=== PATIENT | male | born 1955 | race Caucasian/White ===

== ENCOUNTER 2018-03-12 05:27 | Day surgery (SDC) | payer OTHER ==
[2018-03-04 07:16] VITALS: Ht 182.9 cm; Wt 136.4 kg
[~2018-03-12] VITALS: Ht 182.9 cm; Wt 136.4 kg
[~2018-03-12 05:27] MED LIST: ATOR-24 PO; EMPA1TAB PO; GLC/500 PO; IBUP-1105 PO; LISI-787 PO; LORA1CHW PO
[2018-03-12 05:51] VITALS: BP 191/99; PULSE 71; TEMP 36.7; O2SAT 97
[2018-03-12] MEDS ORDERED: CEFAZOLIN 3000MG IV PUSH 22.5 ML IV SCH (06:00)
[2018-03-12] MEDS ORDERED: LACTATED RINGER'S 1000ML 500 ML IV SCH (06:00)
[2018-03-12] MEDS ORDERED: LIDOCAINE HCL 2% 2 ML VIAL (20MG/ML) ONE (06:26)
[2018-03-12] MEDS ORDERED: PROPOFOL IV EMULSION 10 MG/ML 20 ML VIAL ONE (06:26)
[2018-03-12] MEDS ORDERED: FENTANYL CITRATE INJ 50 MCG/1 ML 2 ML VIAL ONE (06:26)
[2018-03-12] MEDS ORDERED: MIDAZOLAM HCL 1 MG/ML 2ML VIAL ONE ×2 (06:26→07:06)
--- NOTE | 2018-03-12 06:40 | History & Physical Bridge Note ---
H&P Re-Evaluation Bridge Note: I have examined the patient, reviewed the History & Physical and in the interval since the performance of the History & Physical I have noted the following changes of clinical significance: No changes noted
[2018-03-12] MEDS ORDERED: LIDOCAINE HCL 1% 20 ML VIAL ONE ×2 (06:53→07:19)
[2018-03-12] MEDS ORDERED: BUPIVACAINE 0.5 % 5 MG/1 ML PF 10ML VIAL ONE ×2 (06:53→07:23)
[2018-03-12] MEDS ORDERED: EpHEDrine SULFATE INJ 50 MG/ML AMP IV PRN (07:30)
[2018-03-12] MEDS ORDERED: ATROPINE SULFATE 0.1 MG/ML 5ML SYR IV PRN (07:30)
[2018-03-12] MEDS ORDERED: ONDANSETRON INJ 2 MG/ML 2 ML VIAL IV PRN ×2 (07:30→08:00)
[2018-03-12] MEDS ORDERED: BACITRACIN OINT 15 GM TUBE ONE (07:30)
[2018-03-12] MEDS ORDERED: FENTANYL CITRATE INJ 50 MCG/1 ML 2 ML VIAL IV PRN (07:30)
--- NOTE | 2018-03-12 07:37 | [facility] Post Operative Brief Note ---
Immediate Operative Summary Operative Date Mar 12, 2018. Pre-Operative Diagnosis Cyst, Left Thigh Post-Operative Diagnosis Same as preoperative. Procedure(s) Performed Resection Cyst on Left Thigh, Under Sedation and Local Surgeon Dr. Alphonso Yoder Slip Cover Estimator Surgeon(s) None Estimated Blood Loss 10ml Findings Consistent with Post-Op Diagnosis Specimens A.) Cyst, Left Thigh Drains None Anesthesia Type Local Complication(s) none Disposition Accompanied Pt To Recover: yes Disposition: Recovery Room / PACU
--- NOTE | 2018-03-12 07:47 | History & Physical Bridge Note ---
H&P Re-Evaluation Bridge Note: I have examined the patient, reviewed the History & Physical and in the interval since the performance of the History & Physical I have noted the following changes of clinical significance: pt has umbilical hernia, pt has periumbilical pain , pt requests to do umbilical hernia repair possible mesh, and laparoscopic cholecystectomy, possible open or cholangiogram,
[2018-03-12] MEDS ORDERED: SODIUM CHLORIDE 0.9% 1000ML 1,000 ML IV SCH (07:54)
[2018-03-12] MEDS ORDERED: OXYC-57 PO (07:56)
--- NOTE | 2018-03-12 07:59 | Discharge Instructions ---
Discharge Instructions Date of Service Mar 12, 2018. Visit Reason for Visit: Sebaceous Cyst Discharge Discharge Diagnosis / Problem: S/p resection a cyst on left thigh Discharge Goals Goal(s): Decrease discomfort, Improve function Activity Recommendations Activity Limitations: per Instructions/Follow-up section Lifting Limitations: none Exercise/Sports Limitations: rest today May Resume Sexual Activity: when tolerated Shower/Bathe: may shower/bathe in 3 days Driving or Machine Use: resume 3 days after discharge Anesthesia . Post Anesthesia Instructions: If you have had General Anesthesia or IV Sedation: * Do not drive today. * Resume driving when surgeon permits. * Do not make important decisions or sign legal documents today. * Call surgeon for: 1. Temperature elevations greater than 101 degrees F. 2. Uncontrollable pain. 3. Excessive bleeding. 4. Persistent nausea and vomiting. 5. Medication intolerance (nausea, vomiting or rash). * For nausea and vomiting use only clear liquids such as: tea, soda, bouillon until nausea subsides, then gradually increase diet as tolerated. * If you have any concerns or questions, call your surgeon's office. If physician is unavailable and it is an emergency, call 911 or go to the nearest emergency room. . Instructions / Follow-Up Instructions / Follow-Up keep the dressing on for 4 days, he can take a shower on 03/16/2018, no driving while taking pain medicine, follow up DR. chin on 03/29/2018, Diet Recommendations Recommended Home Diet: resume previous diet Procedures Procedures Performed: Resection Cyst on Left Thigh, Under Sedation and Local Pending Studies Studies pending at discharge: no Medical Emergencies . Who to Call and When: Medical Emergencies: If at any time you feel your situation is an emergency, please call 911 immediately. . Non-Emergent Contact Non-Emergency issues call your: Surgeon Call Non-Emergent contact if: you have a fever, temperature is above 100.5, your pain is not controlled, your pain is worsening, wound has increased drainage, wound has increased redness . . "Provider Documentation" section prepared by Alphonso Chin. . [place] Drug Monitoring Program Search Results: no issues identified
[2018-03-12] MEDS ORDERED: MoRPHine SULFATE 4 MG/ML 1 ML CARP\\VIAL IV PRN (08:00)
[2018-03-12] MEDS ORDERED: OXYCODONE/ACETAMINOPHEN 5-325 TAB PO PRN (08:00)
--- NOTE | 2018-03-12 08:02 | Anesthesiology Progress Note ---
Anesthesia Post Op Note Date & Time Mar 12, 2018 at 08:02 Vital Signs Pain Intensity: 0 Vital Signs Past 12 Hours Date Time Temp Pulse Resp B/P (MAP) Pulse Ox O2 Delivery O2 Flow Rate FiO2 03/12/18 07:50 72 18 143/90 95 Room Air 03/12/18 07:40 36.5 72 18 148/87 98 Room Air 03/12/18 05:51 36.7 71 18 191/99 (129) 97 Room Air Notes Mental Status: alert / awake / arousable, participated in evaluation Pt Amnestic to Procedure: Yes Nausea / Vomiting: adequately controlled Pain: adequately controlled Airway Patency, RR, SpO2: stable & adequate BP & HR: stable & adequate Hydration State: stable & adequate Anesthetic Complications: no major complications apparent
[2018-03-12 08:10] VITALS: BP 165/82; PULSE 67; TEMP 36.6; O2SAT 97
--- NOTE | 2018-03-12 08:30 | OPERATIVE REPORT ---
DATE OF OPERATION: 03/12/2018 PREOPERATIVE DIAGNOSIS: A cyst on the left thigh. POSTOPERATIVE DIAGNOSIS: A cyst on the left thigh. PROCEDURE: Resection of cyst from the left thigh. SURGEON: Alphonso Yoder MD ANESTHESIA: Conscious sedation plus local. ESTIMATED BLOOD LOSS: About 10 mL FINDINGS: Cyst. COMPLICATIONS: None. INDICATIONS FOR THE PROCEDURE: This is a 62 years old gentleman who presented with infected cyst on the left thigh. After patient treated with I&D and abscess with p.o. antibiotic, all the infection is gone. Patient required resection of the cyst on the left side. I did talk to the patient about the benefit and risk, alternate procedure. I indicated the risks may include but not limited such as bleeding, infection, recurrence. Patient understands. He signed informed consent. He agreed to proceed. I answered all questions. DETAILS OF PROCEDURE: We brought the patient to the OR, put the patient on the lithotomy position. Patient received SCD on bilateral legs to prevent DVT. Also, patient received 3 grams of Ancef IV for prophylactic antibiotic. Patient received conscious sedation by the anesthesiology. Then the patient's left thigh was prepped and draped in routine sterile fashion. After a timeout, I injected with local anesthesia by using 1% lidocaine mixed with 0.5% Marcaine around the cyst. The cyst's size was about 2 x 2 cm. Then using 15 blade completely removed the cyst deep through subcutaneous layer. Hemostasis was obtained; using 2-0 Vicryl to close subcutaneous layer, interrupted and closed skin by using 3-0 nylon interrupted. We put the dressing on. The patient tolerated the procedure well. All the instrument, needle and sponge count were correct x2 at the end of case. The patient transferred to recovery room in stable condition after procedure. I did talk to the patient's family member about the OR finding and procedure we did, they understand. Also, gave them the postop care instructions and they understand. I attest to the content of the Intraoperative Record and any orders documented therein. Any exceptions are noted below. ROBBIN
[2018-03-12 08:38] VITALS: BP 177/84; PULSE 62; O2SAT 98
[2018-03-12 09:00] VITALS: BP 167/79; PULSE 69; TEMP 36.6; O2SAT 99
[2018-03-13] MEDS ORDERED: CEFAZOLIN SOD 2000MG/15 ML IV PUSH IV ONE (06:00)
== END 2018-03-12 09:11 | disposition home or self-care (01) ==
LOC: C.ACU 05:27
PROVIDERS: ATTEND Surgery
DX: L72.3 Sebaceous cyst (principal); I10 Essential (primary) hypertension; E11.9 Type 2 diabetes mellitus without complications; E66.01 Morbid (severe) obesity due to excess calories; E78.5 Hyperlipidemia, unspecified; F17.220 Nicotine dependence, chewing tobacco, uncomplicated; Z79.899 Other long term (current) drug therapy; Z79.82 Long term (current) use of aspirin; Z79.84 Long term (current) use of oral hypoglycemic drugs

== ENCOUNTER 2022-03-25 07:48 | Inpatient (IN) ==
[2022-03-25 08:49] LABS: Basophils # (auto) 0.03 K/uL (0-0.2); Basophils % (auto) 0.2 %; Eosinophils % (auto) 0.6 %; Hematocrit (blood only) 36.3 % (40.1-51.0); Hemoglobin 12.7 g/dl (14.0-18.0); Immature Granulocytes # (auto) 0.13 K/uL (0.00-0.02); Immature Granulocytes % (auto) 0.8 %; Lymphocytes # (auto) 0.83 K/uL (1.2-3.4); Lymphocytes % (auto) 4.9 %; Mean Corpuscular Hemoglobin 31.4 pg (25.0-34.0); Mean Corpuscular Volume 89.9 fL (80.0-100.0); Mean Platelet Volume 9.9 fL (9.4-12.4); Monocytes # (auto) 1.28 K/uL (0.24-0.82); Monocytes % (auto) 7.5 %; Neutrophils # (auto) 14.71 K/uL (1.4-6.5); Platelet Count 239 K/uL (130-400); RDW Coefficient of Variation 11.8 % (11.5-14.5); RDW Standard Deviation 38.6 fL (36.4-46.3); Red Blood Count 4.04 M/uL (4.63-6.08); White Blood Count 17.08 K/ul (4.8-10.8)
[2022-03-25 09:18] LABS: BUN Creatinine Ratio 21.2 (10-20); Creatinine Clr Calc Pharmacy 120.6 ml/min; Est GFR (African American) 106.7 ml/min; Est GFR (Non-African American) 92.1 ml/min; Potassium 3.7 mmol/L (3.5-5.1)
[2022-03-25] MEDS ORDERED: VANCOMYCIN HCL 2,750 MG in SODIUM CHLORIDE 0.9% 500 ML IV ONE (09:20)
[2022-03-25] MEDS: SODIUM CHLORIDE 0.9% 500 ML IV SCH ×2 (09:20→13:31)
[2022-03-25] MEDS ORDERED: VANCOMYCIN CONSULT ACTIVE PRN ×2 (09:20→13:21)
[2022-03-25] MEDS ORDERED: PIPERACILLIN/TAZOBACTAM 4.5 GM/120 ML BAG IV ONE (09:20)
--- NOTE | 2022-03-25 09:22 | Ultrasound Report ---
ULTRASOUND TESTES AND SCROTUM CLINICAL HISTORY: Scrotal cellulitis. COMPARISON STUDY: No priors. TECHNIQUE: Real-time, grayscale, and color Doppler sonography of the testes and scrotum is performed. Images are reviewed in the transverse and longitudinal planes. FINDINGS: The testes are normal in size and homogeneous in echotexture. The right testis measures 3.8 x 2.1 x 2 .9 cm and the left testis measures 3.9 x 2.3 by cm. A 3 mm hypoechoic nodule is noted in the right te stis. No flow was shown within this nodule. Question mild hyperemia of the testes. Normal Doppler wav eforms are identified in both testes. The right epididymal head is heterogeneous and hyperemic. A 12 mm epididymal head cyst is noted on th e right. Left epididymal head cysts measure up to 5 mm. There is diffuse scrotal wall thickening. No varicocele or hydrocele is seen. IMPRESSION: 1. There is diffuse scrotal wall thickening consistent with the reported history of cellulitis. Clini markell correlation will be required. 2. A 3 mm indeterminant hypoechoic nodule is identified in the right testis. A small testicular neopl asm is not excluded. Nonemergent follow-up with urology is recommended, as is a precautionary 3-4 mon th follow-up scrotal ultrasound. 3. Question mild hyperemia of the right epididymis and both testes. Correlate clinically for evidence of epididymoorchitis. ACT 112: Negative or not required by law. Electronically signed by: Atilio Moreau M.D. 03/25/2022 9:20 AM
--- NOTE | 2022-03-25 10:29 | History & Physical Report ---
Date of Service March 25, 2022 Assessment & Plan (1) Cellulitis, scrotum: Plan: Possible epididymoorchitis Meets sepsis criteria Patient is a 66-year-old male with PMH HTN, dyslipidemia, DM II, h/o perianal abscess presented to ER with complaint of scrotal erythema, edema and tenderness x 2 days. Patient noticed non-tender lump to distal left scrotum on 03/19/22. PCP f/u on 03/22/22 and was prescribed Bactrim. Took for 2 days. Denies fever/chills, vomiting, known trauma, penile discharge, urinary symptoms. +mild nausea. In ER afebrile, initial P: 115 down to 91, R: 18, BP 162/132 down to 161/80, 97% on room air. WBC: 17, lactate: WNL. Ultrasound scrotum: There is diffuse scrotal wall thickening consistent with the reported history of cellulitis. Question mild hyperemia of the right epididymis and both testes. Correlate clinically for evidence of epididymoorchitis. In ER given Zosyn, vancomycin, 500 mL NSS Blood cultures obtained after initial antibiotics given Continue Zosyn, vancomycin IVF CBC, CMP in am Will start Nystatin powder for clinical fungal infection intertriginous areas of groin If no improvement consider urology consult (2) Abnormal ultrasound: Plan: Scrotum US: A 3 mm indeterminant hypoechoic nodule is identified in the right testis. A small testicular neoplasm is not excluded. Nonemergent follow-up with urology is recommended, as is a precautionary 3-4 month follow-up scrotal ultrasound. Will need outpatient urology follow up and repeat scrotal US to be scheduled (3) Hyponatremia: Plan: Na 133 corrected for glucose of 273 Monitor (4) Hyperglycemia: (5) Diabetes mellitus, type II: Plan: Glucose 273 A1c: 7.9 on 03/01/2022 Hold metformin, Trulicity Basal bolus insulin per protocol (6) HTN (hypertension): Plan: BP initially elevated in ER. Patient did not have a.m. meds Continue lisinopril Hold HCTZ and reevaluate tomorrow (7) Dyslipidemia: Plan: Patient denied medical dyslipidemia treatment per outpatient records DVT Prophylaxis -Lovenox SQ Full Code as per discussion with pt Follows with Dr Chowdary for routine care Pt was seen and care coordinated with Dr Bruce. See addendum History of Present Illness Chief Complaint: Scrotal erythema Primary Care Provider: Félix Chowdary MD Patient is a 66-year-old male with PMH HTN, dyslipidemia, DM II, h/o perianal abscess presented to ER with complaint of scrotal erythema. Patient reports he noticed 03/19/22 had lump bottom of left side scrotum that was not tender. He followed up with PCP on 03/22/22 and was prescribed Bactrim. Patient took B actrim for 2 days. He felt increased edema and erythema and area very tender. He stopped taking Bactrim. Denies penile discharge or bleeding, trauma. Cuts a lot of grass on riding reservation agent. Patient reports had a little bit of nausea, denies vomiting. Denies fever/chills, diaphoresis, V/D/C, ALMARAZ, dizziness, syncope, vision changes, neck pain, CP, SOB, orthopnea, palpitations, cough, sore throat, choking, otalgia, rhinorrhea, abdominal pain, paresthesias, weakness, extremity weakness, extremity edema, rashes, urinary symptoms. Allergies Allergy/AdvReac Type Severity Reaction Status Date / Time No Known Allergies Allergy Unverified 03/12/18 05:46 Home Medications Medication Instructions Recorded Confirmed Type aspirin 81 mg tablet 81 mg PO DAILY 03/25/22 03/25/22 History chlorpheniramine maleate 4 mg 4 mg PO DAILY 03/25/22 03/25/22 History tablet (ChlorTabs) dulaglutide 3 mg/0.5 mL 3 mg subcut WK 03/25/22 03/25/22 History subcutaneous pen injector (Trulicity) fluticasone propionate 50 2 spray intranasal DAILY PRN 03/25/22 03/25/22 History mcg/actuation nasal Congestion spray,suspension lisinopril 20 1 tab PO DAILY 03/25/22 03/25/22 History mg-hydrochlorothiazide 12.5 mg tablet metformin 1,000 mg tablet 1,000 mg PO BID 03/25/22 03/25/22 History sodium chloride 0.65 % nasal spray 2 spray intranasal BID PRN 03/25/22 03/25/22 History Congestion sulfamethoxazole 800 1 tab PO BID 03/25/22 03/25/22 History mg-trimethoprim 160 mg tablet Past Med/Surg History Medical History (Updated 03/25/22 @ 10:59 by Tabitha Matthews PA-C) Diabetes mellitus, type II Dyslipidemia HTN (hypertension) Surgical History (Updated 03/25/22 @ 10:43 by Tabitha Matthews PA-C) History of incision and drainage Family History (Updated 03/25/22 @ 10:38 by Tabitha Matthews PA-C) Other Breast cancer Coronary heart disease Diabetes Hypertension Social History (Updated 03/25/22 @ 10:43 by Tabitha Matthesw PA-C) Smoking Status: Never smoker Tobacco Type: Smokeless Tobacco (Dip or Chew) Hx Alcohol Use: No Hx Substance Use: No Feels Safe at Home: Yes Review of Systems Review of Systems: All systems reviewed & are unremarkable except as noted in HPI & below Physical Exam Physical Exam: General: no acute distress, obese Head: normocephalic, atraumatic Eyes: conjunctiva non-injected, anicteric ENT: normal inspection external ears, nose, mucous membranes moist Neck: supple, trachea midline Lungs: clear, no respiratory distress, no wheezing/rhonchi/rales CV: RRR, no murmur, no pretibial edema Abd: protuberant, normal BS, soft, non-tender Gential: exam per Dr Bruce Ext: no cyanosis, no calf tenderness Neuro: A&O x 3, no focal deficits noted, normal affect Skin: warm, dry Results & Data Results & Data ([facility]) Vital Signs (Past 12 Hours) Vital Signs Temp Pulse Pulse Resp BP BP Pulse Ox 03/25/22 10:10 91 H 18 161/80 H 95 03/25/22 07:53 37.2 C 115 H 18 162/132 H 97 O2 Del Method 03/25/22 10:10 Room Air 03/25/22 07:53 Room Air Laboratory Results Short CBC 03/25/22 Range/Units 08:29 WBC 17.08 H (4.8-10.8) K/ul Hgb 12.7 L (14.0-18.0) g/dl Hct 36.3 L (40.1-51.0) % Plt Count 239 (130-400) K/uL BMP 03/25/22 08:35 Sodium 130 L Potassium 3.7 Chloride 96 L Carbon Dioxide 24 BUN 18 Creatinine 0.85 Glucose 273 H Calcium 9.0 Diagnostic Findings Scrotum Ultrasound 03/25/22 08:22 ULTRASOUND TESTES AND SCROTUM CLINICAL HISTORY: Scrotal cellulitis. COMPARISON STUDY: No priors. TECHNIQUE: Real-time, grayscale, and color Doppler sonography of the testes and scrotum is performed. Images are reviewed in the transverse and longitudinal planes. FINDINGS: The testes are normal in size and homogeneous in echotexture. The right testis measures 3.8 x 2.1 x 2.9 cm and the left testis measures 3.9 x 2.3 by cm. A 3 mm hypoechoic nodule is noted in the right testis. No flow was shown within this nodule. Question mild hyperemia of the testes. Normal Doppler waveforms are identified in both testes. The right epididymal head is heterogeneous and hyperemic. A 12 mm epididymal head cyst is noted on the right. Left epididymal head cysts measure up to 5 mm. There is diffuse scrotal wall thickening. No varicocele or hydrocele is seen. IMPRESSION: 1. There is diffuse scrotal wall thickening consistent with the reported history of cellulitis. Clinical correlation will be required. 2. A 3 mm indeterminant hypoechoic nodule is identified in the right testis. A small testicular neoplasm is not excluded. Nonemergent follow-up with urology is recommended, as is a precautionary 3-4 month follow-up scrotal ultrasound. 3. Question mild hyperemia of the right epididymis and both testes. Correlate clinically for evidence of epididymoorchitis. ACT 112: Negative or not required by law. Electronically signed by: Atilio Moreau M.D. 03/25/2022 9:20 AM Supervising Physician Co-Signing Physician Notes Pt is a 66 y/o M with hx of DMII, HTN, HLD, Obesity admitted for cellulitis +/- epididymoorchitis. 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
[2022-03-25] MEDS ORDERED: lisinopril 20 MG TAB PO STA (10:52)
[2022-03-25] MEDS ORDERED: SODIUM CHLORIDE 0.9% 500 ML IV ONE (11:15)
--- NOTE | 2022-03-25 12:20 | Emergency Department Note ---
History of Present Illness General Chief complaint: Groin Pain Stated complaint: SCROTUM PAIN Time Seen by Provider: 03/25/22 08:06 History of Present Illness Provider complaint: Scrotal swelling and redness Onset (ago): day(s) 2 Location: genitals Radiation: non-radiation Severity: moderate Maximum Pain Intensity: 8 Current Pain Intensity: 8 Quality: + stabbing and + sharp Relieved By: + none Exacerbated By: + none Associated symptoms: + rash; no cough, no fever/chills, no headaches, no nausea/vomiting or no shortness of breath 66-year-old diabetic male presents emergency department for scrotal swelling and erythema. The patient reports that on Sunday he noticed a pustule on his scrotum. The patient denies any new sexual partners, no homosexual encounters. The patient states the pustule started he went to go see his doctor who started him on Bactrim. The patient reports yesterday the increase redness and swelling and pain. No dysuria. No penile discharge. No abdominal pain. No nausea vomiting or diarrhea. No fevers. Patient states that his PCP wanted him to have an ultrasound of his scrotum done on Sunday however his symptoms have gotten significantly worse. Home Medications Medication Instructions Recorded Confirmed Type aspirin 81 mg tablet 81 mg PO DAILY 03/25/22 03/25/22 History chlorpheniramine maleate 4 mg 4 mg PO DAILY 03/25/22 03/25/22 History tablet (ChlorTabs) dulaglutide 3 mg/0.5 mL 3 mg subcut WK 03/25/22 03/25/22 History subcutaneous pen injector (Trulicity) fluticasone propionate 50 2 spray intranasal DAILY PRN 03/25/22 03/25/22 History mcg/actuation nasal Congestion spray,suspension lisinopril 20 1 tab PO DAILY 03/25/22 03/25/22 History mg-hydrochlorothiazide 12.5 mg tablet metformin 1,000 mg tablet 1,000 mg PO BID 03/25/22 03/25/22 History sodium chloride 0.65 % nasal spray 2 spray intranasal BID PRN 03/25/22 03/25/22 History Congestion sulfamethoxazole 800 1 tab PO BID 03/25/22 03/25/22 History mg-trimethoprim 160 mg tablet Allergies Allergy/AdvReac Type Severity Reaction Status Date / Time No Known Allergies Allergy Unverified 03/12/18 05:46 Past Med/Surg History Medical History Diabetes mellitus, type II Dyslipidemia HTN (hypertension) Surgical History History of incision and drainage Family History Other Breast cancer Coronary heart disease Diabetes Hypertension Social History Smoking Status: Never smoker Tobacco Type: Smokeless Tobacco (Dip or Chew) Hx Alcohol Use: No Hx Substance Use: No Feels Safe at Home: Yes Review of Systems A total of 10 systems reviewed and were otherwise negative Physical Exam Vital Signs Vital Signs - 24 hr 03/25/22 07:53 03/25/22 10:10 Temperature 37.2 C Temperature Source Temporal Artery Scan Pulse Rate 115 H Pulse Rate [Radial] 91 H Pulse Rhythm [Radial] Regular Respiratory Rate 18 18 Respiratory Effort / Characteristics Non-Labored Non-Labored Respiratory Depth Normal Normal Respiratory Pattern Regular Blood Pressure 162/132 H Blood Pressure [Right Arm] 161/80 H Blood Pressure Mean 142 Blood Pressure Mean [Right Arm] 107 Pulse Oximetry 97 95 Oxygen Delivery Method Room Air Room Air Sepsis Recent Fever Within 48 Hours No Sepsis New/Unexplained Change in Mental Status No Sepsis Action Taken by Nursing No Action Required Physical Exam GENERAL: He is oriented to person, place, and time. He appears well-developed and well-nourished. He does not appear distressed. HENT: Exam performed. - Head: Normocephalic and atraumatic. - Right Ear: External ear normal. No mastoid tenderness. - Left Ear: External ear normal. No mastoid tenderness. - Mouth/Throat: The oropharynx is clear and moist. No trismus in the jaw. No dental abscesses or uvula swelling. No oropharyngeal exudate or tonsillar abscesses. EYES: Conjunctivae and EOM are normal. Pupils are equal, round, and reactive to light. Right eye exhibits no discharge. Left eye exhibits no discharge. No scleral icterus. NECK: Normal range of motion. Neck supple. No JVD present. No spinous process tenderness present. No carotid bruit present. No rigidity. No tracheal deviation and normal range of motion present. No Brudzinski's sign and no Kernig's sign noted. CV: Normal rate, regular rhythm, normal heart sounds and intact distal pulses. There is no peripheral edema. Palpable radial pulses bue. PULM/CHEST: Effort normal and breath sounds normal. No respiratory distress. No stridor. He has no wheezes. He has no rales. - Chest Wall: He exhibits no tenderness. ABD: The abdomen is soft. Bowel sounds are normal. He has no distension. No mass is present. There is no tenderness. There is no rebound, no guarding, no Maloney's sign and no tenderness at McBurney's point. Rovsig negative. : Significant erythema and warmth over the scrotum particularly over the left side of his scrotum. No vesicles. No pustules. No drainage. Nikolsky negative. No necrotic lesions. Consistent with appearance of cellulitis. MUSC/SKEL: Normal range of motion. There is no peripheral edema, tenderness or deformity. LYMPH: No cervical adenopathy. NEURO: He is alert and oriented to person, place, and time. He has normal strength. No cranial nerve deficit or sensory deficit. Coordination and gait normal. GCS eye subscore is 4. GCS verbal subscore is 5. GCS motor subscore is 6. Cerebellar tests wnl. SKIN: Skin is warm and dry. He is not diaphoretic. PSYCH: He has a normal mood and affect. Behavior is normal. Judgment and thought content normal. Course Course 08: The patient was evaluated in room C2. A complete history and physical exam was performed Cardiac monitoring: An order was placed for continuous cardiac monitoring. The monitor shows a rate of 90 with sinus rhythm 1000: Vital signs stable. Labs show leukocytosis of 17. Ultrasound shows no abscess but does show scrotal cellulitis. There is also a possible malignant lesion on the patient's testicle. Patient [facility] be [facility] broad-spectrum antibiotics started on the patient. Administered Medications Sodium Chloride (Nss) 500 mls @ 125 mls/hr IV .Q4H RADHA Stop: 04/24/22 08:29 Last Infusion: 03/25/22 12:15 Dose: 0 mls/hr Documented By: Admin: 03/25/22 09:20 Dose: 125 mls/hr Documented By: AMS Discontinued Medications Vancomycin HCl 2,750 mg/ (Sodium Chloride) 555 mls @ 200 mls/hr IV NOW ONE Stop: 03/25/22 12:06 Last Admin: 03/25/22 10:11 Dose: 200 mls/hr Documented By: VENESSA Piperacillin Sod/Tazobactam Sod (Zosyn) 4.5 gm in 120 mls @ 240 mls/hr IV NOW ONE Stop: 03/25/22 09:49 Last Infusion: 03/25/22 10:11 Dose: 0 mls/hr Documented By: Admin: 03/25/22 09:27 Dose: 240 mls/hr Documented By: VENESSA Sodium Chloride (Nss) 500 mls @ 999 mls/hr IV .Q31M ONE Stop: 03/25/22 11:45 Last Admin: 03/25/22 12:15 Dose: 999 mls/hr Documented By: VENESSA Medical Decision Making Laboratory Data Result diagrams: 03/25/22 08:29 03/25/22 08:35 Lab Results 03/25/22 03/25/22 03/25/22 Range/Units 08:29 08:29 08:35 WBC 17.08 H (4.8-10.8) K/ul RBC 4.04 L (4.63-6.08) M/uL Hgb 12.7 L (14.0-18.0) g/dl Hct 36.3 L (40.1-51.0) % MCV 89.9 (80.0-100.0) fL MCH 31.4 (25.0-34.0) pg MCHC 35.0 (32.0-36.0) g/dL RDW Std Deviation 38.6 (36.4-46.3) fL RDW Coeff of Robert 11.8 (11.5-14.5) % Plt Count 239 (130-400) K/uL MPV 9.9 (9.4-12.4) fL Immature Gran % (Auto) 0.8 % Neut % (Auto) 86.0 % Lymph % (Auto) 4.9 % [place] % (Auto) 7.5 % Eos % (Auto) 0.6 % Baso % (Auto) 0.2 % Neut # (Auto) 14.71 H (1.4-6.5) K/uL Lymph # (Auto) 0.83 L (1.2-3.4) K/uL [place] # (Auto) 1.28 H (0.24-0.82) K/uL Eos # (Auto) 0.10 (0-0.50) K/uL Baso # (Auto) 0.03 (0-0.2) K/uL Immature Gran # (Auto) 0.13 H (0.00-0.02) K/uL Sodium 130 L (136-145) mmol/L Potassium 3.7 (3.5-5.1) mmol/L Chloride 96 L (98-107) mmol/L Carbon Dioxide 24 (21-32) mmol/L Anion Gap 10 (3-11) BUN 18 (6-23) mg/dl Creatinine 0.85 (0.6-1.4) mg/dl Est Cr Clr Drug Dosing 120.6 ml/min Est GFR ( Amer) 106.7 ml/min Est GFR (Non-Af Amer) 92.1 ml/min BUN/Creatinine Ratio 21.2 H (10-20) Glucose 273 H (70-99(Fasting)) mg/dl Lactate 0.9 (0.4-2.0) mmol/L Calcium 9.0 (8.5-10.1) mg/dl SARS-CoV-2, RNA, NAAT (NEGATIVE) 03/25/22 Range/Units 09:30 WBC (4.8-10.8) K/ul RBC (4.63-6.08) M/uL Hgb (14.0-18.0) g/dl Hct (40.1-51.0) % MCV (80.0-100.0) fL MCH (25.0-34.0) pg MCHC (32.0-36.0) g/dL RDW Std Deviation (36.4-46.3) fL RDW Coeff of Robert (11.5-14.5) % Plt Count (130-400) K/uL MPV (9.4-12.4) fL Immature Gran % (Auto) % Neut % (Auto) % Lymph % (Auto) % [place] % (Auto) % Eos % (Auto) % Baso % (Auto) % Neut # (Auto) (1.4-6.5) K/uL Lymph # (Auto) (1.2-3.4) K/uL [place] # (Auto) (0.24-0.82) K/uL Eos # (Auto) (0-0.50) K/uL Baso # (Auto) (0-0.2) K/uL Immature Gran # (Auto) (0.00-0.02) K/uL Sodium (136-145) mmol/L Potassium (3.5-5.1) mmol/L Chloride (98-107) mmol/L Carbon Dioxide (21-32) mmol/L Anion Gap (3-11) BUN (6-23) mg/dl Creatinine (0.6-1.4) mg/dl Est Cr Clr Drug Dosing ml/min Est GFR ( Amer) ml/min Est GFR (Non-Af Amer) ml/min BUN/Creatinine Ratio (10-20) Glucose (70-99(Fasting)) mg/dl Lactate (0.4-2.0) mmol/L Calcium (8.5-10.1) mg/dl SARS-CoV-2, RNA, NAAT NEGATIVE (NEGATIVE) Imaging Data Radiologist's Impression: Scrotum Ultrasound 03/25/22 08:22 ULTRASOUND TESTES AND SCROTUM CLINICAL HISTORY: Scrotal cellulitis. COMPARISON STUDY: No priors. TECHNIQUE: Real-time, grayscale, and color Doppler sonography of the testes and scrotum is performed. Images are reviewed in the transverse and longitudinal planes. FINDINGS: The testes are normal in size and homogeneous in echotexture. The right testis measures 3.8 x 2.1 x 2.9 cm and the left testis measures 3.9 x 2.3 by cm. A 3 mm hypoechoic nodule is noted in the right testis. No flow was shown within this nodule. Question mild hyperemia of the testes. Normal Doppler waveforms are identified in both testes. The right epididymal head is heterogeneous and hyperemic. A 12 mm epididymal head cyst is noted on the right. Left epididymal head cysts measure up to 5 mm. There is diffuse scrotal wall thickening. No varicocele or hydrocele is seen. IMPRESSION: 1. There is diffuse scrotal wall thickening consistent with the reported history of cellulitis. Clinical correlation will be required. 2. A 3 mm indeterminant hypoechoic nodule is identified in the right testis. A small testicular neoplasm is not excluded. Nonemergent follow-up with urology is recommended, as is a precautionary 3-4 month follow-up scrotal ultrasound. 3. Question mild hyperemia of the right epididymis and both testes. Correlate clinically for evidence of epididymoorchitis. ACT 112: Negative or not required by law. Electronically signed by: Atilio Moreau M.D. 03/25/2022 9:20 AM MDM Narrative Vital signs stable. Labs show leukocytosis of 17. Ultrasound shows no abscess but does show scrotal cellulitis. There is also a possible malignant lesion on the patient's testicle. Patient will be admitted to the [facility] team broad-spectrum antibiotics started on the patient. Impression & Plan Cellulitis, scrotum Discharge Plan Visit Data Chief Complaint: Groin Pain Stated Complaint: SCROTUM PAIN ED Provider: Rafael Palacio Discharge Problem: Cellulitis, scrotum Patient Disposition: Admitted As Inpatient Forms Stand Alone Forms: [facility] Prescriptions Prescriptions: No Action chlorpheniramine maleate [ChlorTabs] 4 mg Tablet 4 mg PO DAILY lisinopril-hydrochlorothiazide 20-12.5 mg tablet 1 tab PO DAILY [place] Nasal 0.65 % Coleman,Non-Aerosol 2 spray INTRANASAL BID PRN (Reason: Congestion) Rx Instructions: PRN nasal congestion or nasal dryness sulfamethoxazole-trimethoprim 800-160 mg tablet 1 tab PO BID Rx Instructions: Rx on 03/22/22 metformin 1,000 mg tablet 1,000 mg PO BID aspirin 81 mg Tablet 81 mg PO DAILY fluticasone propionate [Flonase] 50 mcg/actuation Coleman,Suspension 2 spray INTRANASAL DAILY PRN (Reason: Congestion) Trulicity 3 mg/0.5 mL pen injector 3 mg SUBCUT WK Rx Instructions: Takes on sundays Referrals Referrals: Félix Chowdary MD [Primary Care Provider] -
[2022-03-25] MEDS ORDERED: GLUCOSE 10 TAB/TUBE PO PRN (13:21)
[2022-03-25] MEDS ORDERED: DEXTROSE 50% 50 ML SYRINGE IV PRN (13:21)
[2022-03-25] MEDS ORDERED: GLUCOSE 40% GEL 15 GM TUBE PO PRN (13:21)
[2022-03-25] MEDS ORDERED: POLYETHYLENE (MIRALAX) 17 GM PACK PO PRN (13:21)
[2022-03-25] MEDS ORDERED: CARBOHYDRATES FOR HYPOGLYCEMIA PO PRN (13:21)
[2022-03-25] MEDS ORDERED: GLUCAGON FOR INJ 1 MG VIAL SQ PRN (13:21)
[2022-03-25] MEDS ORDERED: VANCOMYCIN HCL 2,000 MG in SODIUM CHLORIDE 0.9% 500 ML IV SCH (13:21)
[2022-03-25] MEDS: SODIUM CHLORIDE 0.9% 1000ML 1,000 ML IV SCH ×2 (15:06→22:39)
[2022-03-25] MEDS: PIPERACILLIN/TAZOBACTAM 4.5 GM in DEXTROSE 5% 100 ML IV SCH ×2 (15:07→21:49)
[2022-03-25] MEDS: NYSTATIN POWDER 15GM BTL EXT SCH ×2 (15:11→21:26)
[2022-03-25] MEDS: INSULIN ASPART PER UNIT SC SCH ×3 (15:11→21:24)
[2022-03-25] MEDS: LANTUS PER UNIT CHARGE SQ SCH ×2 (15:11→22:23)
[2022-03-25] MEDS: ENOXAPARIN INJ 40 MG/0.4 ML SYR SQ SCH (17:03)
[2022-03-25] MEDS: DAPTOmycin 400 MG in SYRINGE 0 ML IV SCH (21:49)
[2022-03-25] MEDS: guaiFENesin/CODEINE 100MG/10MG 5ML UDC PO PRN (21:49)
[2022-03-25] MEDS: CHLORPHENIRAMINE PO SCH (21:51)
[2022-03-26 05:33] LABS: Basophils # (auto) 0.06 K/uL (0-0.2); Basophils % (auto) 0.3 %; Eosinophils # (auto) 0.03 K/uL (0-0.50); Eosinophils % (auto) 0.2 %; Hematocrit (blood only) 31.6 % (40.1-51.0); Hemoglobin 11.2 g/dl (14.0-18.0); Immature Granulocytes # (auto) 0.19 K/uL (0.00-0.02); Lymphocytes # (auto) 1.51 K/uL (1.2-3.4); Lymphocytes % (auto) 8.2 %; Mean Corpuscular Hgb Conc 35.4 g/dL (32.0-36.0); Mean Corpuscular Volume 90.3 fL (80.0-100.0); Mean Platelet Volume 10.3 fL (9.4-12.4); Monocytes # (auto) 1.31 K/uL (0.24-0.82); Monocytes % (auto) 7.1 %; Neutrophils # (auto) 15.31 K/uL (1.4-6.5); Neutrophils % (auto) 83.2 %; Platelet Count 227 K/uL (130-400); RDW Coefficient of Variation 11.9 % (11.5-14.5); RDW Standard Deviation 39.2 fL (36.4-46.3); White Blood Count 18.41 K/ul (4.8-10.8)
[2022-03-26] MEDS: CHLORPHENIRAMINE PO SCH ×3 (05:45→21:00)
[2022-03-26] MEDS: PIPERACILLIN/TAZOBACTAM 4.5 GM in DEXTROSE 5% 100 ML IV SCH ×3 (05:45→21:03)
[2022-03-26] MEDS: ACETAMINOPHEN 325 MG TAB PO PRN ×2 (05:54→22:32)
[2022-03-26] MEDS ORDERED: MoRPHine SULFATE 2 MG/ML CARP IV STA (06:04)
[2022-03-26] MEDS ORDERED: FAMOTIDINE 20 MG in SYRINGE 3 ML IV STA (06:04)
[2022-03-26 06:05] LABS: Albumin Level 3.3 gm/dl (3.4-5.0); BUN Creatinine Ratio 16.8 (10-20); Calcium 8.1 mg/dl (8.5-10.1); Creatinine Clr Calc Pharmacy 90.7 ml/min; Est GFR (African American) 79.2 ml/min; Est GFR (Non-African American) 68.3 ml/min; Globulin 3.2 gm/dl (2.5-4.0); Potassium 3.5 mmol/L (3.5-5.1); Total Protein 6.5 gm/dl (6.0-8.3)
[2022-03-26] MEDS ORDERED: FAMOTIDINE 20MG/5ML IV PUSH IV STA (06:07)
[2022-03-26] MEDS ORDERED: lisinopril 20 MG TAB PO SCH (09:00)
[2022-03-26] MEDS: ASPIRIN 81 MG ECTAB PO SCH (09:02)
[2022-03-26] MEDS: NYSTATIN POWDER 15GM BTL EXT SCH ×2 (09:03→21:01)
[2022-03-26] MEDS: INSULIN ASPART PER UNIT SC SCH ×4 (09:04→22:03)
[2022-03-26] MEDS: LANTUS PER UNIT CHARGE SQ SCH ×2 (09:10→22:04)
[2022-03-26] MEDS ORDERED: PIPERACILLIN/TAZOBACTAM 4.5 GM/120ML D5W IV ONE (16:23)
[2022-03-26] MEDS: BENZONATATE 100 MG CAPSULE PO SCH ×2 (16:27→21:01)
[2022-03-26] MEDS: ENOXAPARIN INJ 40 MG/0.4 ML SYR SQ SCH (17:00)
--- NOTE | 2022-03-26 19:25 | Hospitalist Progress Note ---
Date of Service March 26, 2022 Assessment & Plan (1) Cellulitis, scrotum: Plan: 66-year-old male with PMH HTN, dyslipidemia, DM II, h/o perianal abscess presented to ER with complaint of scrotal erythema, edema and tenderness x 2 days. Patient noticed non-tender lump to distal left scrotum on 03/19/22. PCP f/u on 03/22/22 and was prescribed Bactrim. Took for 2 days. Denies fever/chills, vomiting, known trauma, penile discharge, urinary symptoms. +mild nausea. In ER afebrile, initial P: 115 down to 91, R: 18, BP 162/132 down to 161/80, 97% on room air. WBC: 17, lactate: WNL. Ultrasound scrotum: There is diffuse scrotal wall thickening consistent with the reported history of cellulitis. Question mild hyperemia of the right epididymis and both testes. Correlate clinically for evidence of epididymoorchitis. In ER given Zosyn, vancomycin, 500 mL NSS Blood cultures obtained after initial antibiotics given Scrotal cellulitis, possible epididymoorchitis Meets sepsis criteria with tachycardia, leucocytosis continue empiric IV ABx for now UA has not been sent yet- ordered. MRSA ordered. If no improvement, will consult urology (2) Abnormal ultrasound: Plan: Scrotum US: A 3 mm indeterminant hypoechoic nodule is identified in the right testis. A small testicular neoplasm is not excluded. Nonemergent follow-up with urology is recommended, as is a precautionary 3-4 month follow-up scrotal ultrasound. Will need outpatient urology follow up and repeat scrotal US to be scheduled (3) Hyponatremia: Plan: overall stable, will monitor (4) Hyperglycemia: (5) Diabetes mellitus, type II: Plan: Glucose 273 A1c: 7.9 on 03/01/2022 On Trulicity every sunday Basal bolus insulin per protocol- adjust as indicated (6) HTN (hypertension): Plan: Gets cough with lisinopril- will discontinue. Will consider losartan instead. hold HCTZ for now. Plan DVT ppx- sc lovenox Dispo- on iv antibiotics for scrotal cellulitis- monitor for improvement. Anticipate at least 48 hr of IV ABx. Updated family at bedside Admission and Anticipated Discharge Date Admission Date: March 25, 2022 Subjective continues with scrotal pain and swelling. No N/V/CP/SOB. States he gets cough with lisinopril and deos not take at home. Asking something for his dry cough. Physical Exam Physical Exam: General: Morbidly obese, sitting comfortably in bed, not in distress, on room air HEENT: EOMI, PERRL, MMM Chest: Clear breath sounds bilaterally, no wheezes or crackles CVS: mild tachycardia, normal heart sounds, no murmur Abdomen: Soft, non tender, not distended, normal bowel sounds Neuro: Awake, alert, oriented, conversing well, non focal Extremities: Chronic trace edema : scrotal cellulitis with erythema, tenderness and swelling noted. Results & Data Results & Data ([facility]) Vital Signs (Past 12 Hours) Vital Signs Temp Pulse Pulse Resp BP Pulse Ox O2 Del Method 03/26/22 18:47 100 H 03/26/22 18:43 36.9 C 60 21 124/63 93 Room Air 03/26/22 16:26 95 H 20 144/75 H 96 Room Air Laboratory Results Short CBC 03/26/22 Range/Units 05:06 WBC 18.41 H (4.8-10.8) K/ul Hgb 11.2 L (14.0-18.0) g/dl Hct 31.6 L (40.1-51.0) % Plt Count 227 (130-400) K/uL BMP 03/26/22 05:06 Sodium 130 L Potassium 3.5 Chloride 99 Carbon Dioxide 23 BUN 19 Creatinine 1.13 Glucose 226 H Calcium 8.1 L Liver Function 03/26/22 Range/Units 05:06 Total Bilirubin 2.0 H (0.2-1.0) mg/dl AST 19 (13-39) U/L ALT 28 (7-52) U/L Alkaline Phosphatase 65 (34-104) U/L Albumin 3.3 L (3.4-5.0) gm/dl Medications Administered Current Inpatient Medications Acetaminophen (Acetaminophen 325 Mg Tab) 650 mg PO Q4H PRN PRN Reason: Pain or Fever Stop: 04/24/22 13:20 Last Admin: 03/26/22 05:54 Dose: 650 mg Aspirin (Aspirin 81 Mg Ectab) 81 mg PO DAILY RADHA Stop: 04/25/22 08:59 Last Admin: 03/26/22 09:02 Dose: 81 mg Benzonatate (Benzonatate 100 Mg Capsule) 200 mg PO TID RADHA Stop: 04/25/22 14:29 Last Admin: 03/26/22 16:27 Dose: 200 mg Dextrose (Dextrose 50% 50 Ml Syringe) 25 - 50 ml IV UD PRN; Protocol PRN Reason: Hypoglycemia Protocol Stop: 04/24/22 13:20 Enoxaparin Sodium (Enoxaparin Inj 40 Mg/0.4 Ml Syr) 40 mg SQ Q24H RADHA Stop: 04/24/22 15:59 Last Admin: 03/26/22 17:00 Dose: 40 mg Glucagon (Glucagon For Inj 1 Mg Vial) 1 mg SQ UD PRN; Protocol PRN Reason: Hypoglycemia Protocol Stop: 04/24/22 13:20 Glucose (Glucose 40% Gel 15 Gm Tube) 15 - 30 gm PO UD PRN; Protocol PRN Reason: Hypoglycemia Protocol Stop: 04/24/22 13:20 Glucose (Glucose 10 Tab/Tube) 4 - 8 tab PO UD PRN; Protocol PRN Reason: Hypoglycemia Treatment Stop: 04/24/22 13:20 Guaifenesin/Codeine Phosphate (Guaifenesin/Codeine 100mg/10mg 5ml Udc) 5 ml PO Q6H PRN PRN Reason: Cough Stop: 04/24/22 21:29 Last Admin: 03/25/22 21:49 Dose: 5 ml Piperacillin Sod/Tazobactam (Sod 4.5 gm/ Dextrose) 120 mls @ 30 mls/hr IV Q8H RADHA; Protocol Stop: 04/01/22 13:59 Last Admin: 03/26/22 16:29 Dose: 30 mls/hr Daptomycin 400 mg/ Syringe 8 mls @ 0 mls/min IV Q24H RADHA; Protocol Stop: 04/01/22 21:59 Last Admin: 03/25/22 21:49 Dose: 4 mls/min Insulin Aspart (Insulin Aspart Per Unit) 0 units SC ACHS RADHA Stop: 04/24/22 13:20 Last Admin: 03/26/22 18:26 Dose: 1 units Insulin Glargine (Lantus Per Unit Charge) 5 units SQ BID RADHA Stop: 04/24/22 13:20 Last Admin: 03/26/22 09:10 Dose: 5 units Miscellaneous (Carbohydrates For Hypoglycemia ) 15 - 30 gm PO UD PRN PRN Reason: Hypoglycemia Protocol Stop: 04/24/22 13:20 Chlorpheniramine: Non-Formulary Patient's Own Med 1 each PO Q6 RADHA Stop: 04/25/22 20:59 Last Admin: 03/26/22 13:23 Dose: 1 tab Nystatin (Nystatin Powder 15gm Btl) 1 appln EXT BID RADHA Stop: 04/24/22 13:20 Last Admin: 03/26/22 09:03 Dose: 1 appln Ondansetron HCl (Ondansetron Inj 2 Mg/Ml 2 Ml Vial) 4 mg IV Q6H PRN PRN Reason: Nausea Stop: 04/24/22 13:20 Polyethylene Glycol (Polyethylene (Miralax) 17 Gm Pack) 17 gm PO DAILY PRN PRN Reason: Constipation Stop: 04/24/22 13:20
[2022-03-26] MEDS: DAPTOmycin 400 MG in SYRINGE 0 ML IV SCH (21:02)
[2022-03-26] MEDS: guaiFENesin/CODEINE 100MG/10MG 5ML UDC PO PRN (22:32)
[2022-03-27] MEDS: CHLORPHENIRAMINE PO SCH ×4 (00:10→18:21)
[2022-03-27 03:12] LABS: Appearance Urine Clear (Clear); Bilirubin Urine Negative (Negative); Blood Urine Negative (Negative); Color Urine Yellow; Glucose Urine UA Trace (Negative); Ketones Urine 1+ (Negative); Leukocyte Esterase Urine Negative (Negative); Nitrite Urine Negative (Negative); Protein Urine 1+ (Negative); RBC Urine Automated 0-4 /hpf (0-4); Specific Gravity Urine 1.023 (1.000-1.030); Urobilinogen Urine Negative (Negative); pH Urine 5.5 (4.5-7.5)
[2022-03-27 03:58] LABS: Bacteria Urine Automated 1+ (Negative); Cast Urine Automated 0 /lpf (0-5)
[2022-03-27] MEDS: PIPERACILLIN/TAZOBACTAM 4.5 GM in DEXTROSE 5% 100 ML IV SCH ×3 (06:14→21:39)
[2022-03-27] MEDS: traMADol HCL 50 MG TABLET PO PRN ×2 (06:21→21:32)
[2022-03-27 07:39] LABS: Hemoglobin 11.3 g/dl (14.0-18.0); Mean Corpuscular Hgb Conc 34.2 g/dL (32.0-36.0); Mean Corpuscular Volume 90.4 fL (80.0-100.0); Platelet Count 241 K/uL (130-400); RDW Coefficient of Variation 11.9 % (11.5-14.5); RDW Standard Deviation 39.7 fL (36.4-46.3); Red Blood Count 3.65 M/uL (4.63-6.08); White Blood Count 18.53 K/ul (4.8-10.8)
[2022-03-27 07:57] LABS: BUN Creatinine Ratio 17.5 (10-20); Calcium 8.5 mg/dl (8.5-10.1); Creatinine Clr Calc Pharmacy 106.1 ml/min; Est GFR (African American) 95.2 ml/min; Est GFR (Non-African American) 82.2 ml/min; Magnesium 1.9 mg/dl (1.7-2.4); Phosphorus 2.6 mg/dl (2.5-4.9); Potassium 3.3 mmol/L (3.5-5.1)
--- NOTE | 2022-03-27 09:38 | Urology Consultation ---
Date of Consultation March 27, 2022 Assessment & Plan (1) Cellulitis, scrotum: (2) Epididymoorchitis: Plan 66yo M admitted with sepsis 2/2 scrotal cellulitis, epididymoorchitis. - Plan of care and imaging reviewed with Dr. Kingsley, on-call urologist. - Scrotal US reviewed and consistent with scrotal cellulitis and epididymoorchitis. - Afebrile (Tmax 38.1 on 03/26 at 2215). - Labs reviewed - WBC 18.53, Creatinine 0.97 - Continue to trend. - Urine culture pending; Blood cultures prelim no growth x 24 hours - Continues on IV Daptomycin and Zosyn, follow cultures. - No acute intervention warranted at this time. - For now, would recommend continued treatment with antibiotics for epididymitis/cellulitis. This may take several weeks to completely resolve and he should have a prolonged course of antibiotics. - He can continue to elevate the scrotum and use ice as needed as this may help with some of the edema. - In regards to the 3 mm indeterminant hypoechoic nodule right testis, will need outpatient f/u and repeat scrotal US in 3-4mo. - Urology will follow. History of Present Illness Reason for Consultation: Scrotal cellulitis, epididymoorchitis Attending Physician: Michael Carcamo MD History of Present Illness 66-year-old male with PMH HTN, dyslipidemia, DM II, h/o perianal abscess who presented to ER on 03/25/22 with complaint of scrotal erythema, edema and tenderness x 2 days. Patient noticed non-tender lump to distal left scrotum on 03/19/22. PCP f/u on 03/22/22 and was prescribed Bactrim. Took for 2 days, but felt increased edema and erythema and area very tender and stopped taking Bactrim and presented to emergency room. In the ED, he was hypertensive, tachycardic, with leukocytosis of 17. Scrotal ultrasound showing diffuse scrotal wall thickening consistent with cellulitis, mild hyperemia of the right epididymis, and a 3 mm indeterminate nodule in the right testis. Urine and blood cultures were obtained. Pt met sepsis criteria and was admitted to medicine for further management. Urology consulted for scrotal cellulitis, epididymoorchitis. Scrotal US- 1. There is diffuse scrotal wall thickening consistent with the reported history of cellulitis. Clinical correlation will be required. 2. A 3 mm indeterminant hypoechoic nodule is identified in the right testis. A small testicular neoplasm is not excluded. Nonemergent follow-up with urology is recommended, as is a precautionary 3-4 month follow-up scrotal ultrasound. 3. Question mild hyperemia of the right epididymis and both testes. Correlate clinically for evidence of epididymoorchitis. Patient examined at bedside this AM. Awake, resting in bed on arrival. No acute distress. Continues with scrotal pain and swelling, however reports an improvement since admission. Denies any open areas or drainage. Has been elevating the scrotum. Was febrile last night (38.1), had Tylenol. Otherwise afebrile. No chills or shakes. Tolerating diet, no nausea or vomiting. Voiding without issue. Denies hematuria and dysuria. Feels he is emptying his bladder. Had BM x 2 this morning, which helped alleviate some pain per patient. Denies prior urological history. Denies pertinent family history. Allergies Allergy/AdvReac Type Severity Reaction Status Date / Time grass pollen Allergy Sneezing Verified 03/25/22 15:22 lisinopril AdvReac Intermediate Cough Verified 03/26/22 09:39 Home Medications Medication Instructions Recorded Confirmed Type aspirin 81 mg tablet 81 mg PO DAILY 03/25/22 03/25/22 History chlorpheniramine maleate 4 mg 4 mg PO DAILY 03/25/22 03/25/22 History tablet (ChlorTabs) dulaglutide 3 mg/0.5 mL 3 mg subcut WK 03/25/22 03/25/22 History subcutaneous pen injector (Trulicity) fluticasone propionate 50 2 spray intranasal DAILY PRN 03/25/22 03/25/22 History mcg/actuation nasal Congestion spray,suspension ibuprofen 200 mg tablet 400 mg PO Q6H PRN Pain 03/25/22 03/25/22 History lisinopril 20 1 tab PO DAILY 03/25/22 03/25/22 History mg-hydrochlorothiazide 12.5 mg tablet metformin 1,000 mg tablet 1,000 mg PO BID 03/25/22 03/25/22 History sulfamethoxazole 800 1 tab PO BID 03/25/22 03/25/22 History mg-trimethoprim 160 mg tablet Patient History Medical History Diabetes mellitus, type II Dyslipidemia HTN (hypertension) Surgical History History of incision and drainage Family History Other Breast cancer Coronary heart disease Diabetes Hypertension Social History Smoking Status: Never smoker Tobacco Type: Smokeless Tobacco (Dip or Chew) Second Hand Exposure: No; Do You Dip or Chew Tobacco: Yes; Tobacco Cessation Education Requested by Patient: No Hx Alcohol Use: No Hx Substance Use: No Preferred Language: Algerian Communication Ability: Effective Beater Room Supervisor Required: No Beliefs That Will Affect Care: None Current Living Situation: Spouse Other Information That Helps Us Care for You: No Feels Safe at Home: Yes Safety Concerns: Feels Safe At This Time Assistive Devices: Glasses Review of Systems Review of Systems: All systems reviewed & are unremarkable except as noted in HPI & below Physical Exam Constitutional: + obese and cooperative; no acute distress ENMT: external ear and nose normal, oropharynx normal Neck: normal visual inspection Respiratory: no respiratory distress and no labored breathing Gastrointestinal (Abdomen): Percussion/Palpation: abdomen soft; abdomen nontender Musculoskeletal: Head/Neck/Chest: normocephalic Skin: No visible rashes or lesions to exposed skin areas Neurologic: awake Psychiatric: Orientation: alert and oriented x 3 Genitourinary: + penile swelling (Buried penis) Diffuse scrotal edema and erythema. Induration L>R. No open areas or drainage noted. No fluctuance or crepitus appreciated. Tender to palpation L>R. Small area of skin discoloration also noted on posterior scrotum. Results & Data ([facility]) Vital Signs (Past 12 Hours) Vital Signs Temp Pulse Resp BP BP Pulse Ox O2 Del Method 03/27/22 08:01 36.8 C 103 H 20 168/75 H 95 Room Air 03/27/22 02:23 37 C 87 20 143/85 H 93 Room Air 03/26/22 23:39 37.1 C 03/26/22 22:15 38.1 C H 93 H 20 119/69 92 Room Air PG Care Time/CCT Total # of Minutes Spent Total Time Spent with Patient: Total time spent is greater than 50% in coordination of care (as documented) at patient's floor/unit and/or counseling patient: Coding Level of Care Code 01754 Inpt Consult Level 3 Diagnoses Cellulitis, scrotum N49.2 Epididymoorchitis N45.3
[2022-03-27] MEDS: LOSARTAN POTASSIUM 25 MG TAB PO SCH (09:48)
[2022-03-27] MEDS: BENZONATATE 100 MG CAPSULE PO SCH ×3 (09:50→20:13)
[2022-03-27] MEDS: INSULIN ASPART PER UNIT SC SCH ×4 (09:51→21:33)
[2022-03-27] MEDS: ASPIRIN 81 MG ECTAB PO SCH (09:53)
[2022-03-27] MEDS: NYSTATIN POWDER 15GM BTL EXT SCH ×2 (09:54→20:14)
[2022-03-27] MEDS: LANTUS PER UNIT CHARGE SQ SCH ×2 (10:11→21:40)
[2022-03-27] MEDS: ONDANSETRON INJ 2 MG/ML 2 ML VIAL IV PRN (15:09)
[2022-03-27] MEDS ORDERED: POTASSIUM CHLORIDE CRTAB 20 MEQ TABCR PO ONE (16:49)
--- NOTE | 2022-03-27 16:53 | Hospitalist Progress Note ---
Date of Service March 27, 2022 Assessment & Plan (1) Cellulitis, scrotum: Plan: 66-year-old male with PMH HTN, dyslipidemia, DM II, h/o perianal abscess presented to ER with complaint of scrotal erythema, edema and tenderness x 2 days. Patient noticed non-tender lump to distal left scrotum on 03/19/22. PCP f/u on 03/22/22 and was prescribed Bactrim. Took for 2 days. Denies fever/chills, vomiting, known trauma, penile discharge, urinary symptoms. +mild nausea. In ER afebrile, initial P: 115 down to 91, R: 18, BP 162/132 down to 161/80, 97% on room air. WBC: 17, lactate: WNL. Ultrasound scrotum: There is diffuse scrotal wall thickening consistent with the reported history of cellulitis. Question mild hyperemia of the right epididymis and both testes. Correlate clinically for evidence of epididymoorchitis. In ER given Zosyn, vancomycin, 500 mL NSS Blood cultures obtained after initial antibiotics given Scrotal cellulitis, possible epididymoorchitis Meets sepsis criteria with tachycardia, leucocytosis. procal 0.6 continue empiric IV ABx for now- still with persistent leucocytosis and fever. UA reviewed, urine clx pending, blood clx negative, MRSA screen negative Urology following- recommendations noted Consult ID if fails to improve (2) Abnormal ultrasound: Plan: Scrotum US: A 3 mm indeterminant hypoechoic nodule is identified in the right testis. A small testicular neoplasm is not excluded. Nonemergent follow-up with urology is recommended, as is a precautionary 3-4 month follow-up scrotal ultrasound. Will need outpatient urology follow up and repeat scrotal US to be scheduled (3) Hyponatremia: Plan: overall stable, will monitor (4) Hyperglycemia: (5) Diabetes mellitus, type II: Plan: Glucose 273 A1c: 7.9 on 03/01/2022 On Trulicity every sunday Basal bolus insulin per protocol- adjust as indicated (6) HTN (hypertension): Plan: Gets cough with lisinopril and hence discontinued. started on losartan instead. hold HCTZ for now. (7) Hypokalemia: Plan: Repleted. recheck in am Plan DVT ppx- sc lovenox Dispo- on iv antibiotics for scrotal cellulitis- monitor for improvement. Anticipate at least 48 hr of IV ABx. Admission and Anticipated Discharge Date Admission Date: March 25, 2022 Subjective Continues to have scrotal pain and swelling. Intermittently febrile, otherwise no other issues. No N/V. Doesn't look sick or septic. Physical Exam Physical Exam: General: Morbidly obese, sitting comfortably in bed, not in distress, on room air HEENT: EOMI, PERRL, MMM Chest: Clear breath sounds bilaterally, no wheezes or crackles CVS: mild tachycardia, normal heart sounds, no murmur Abdomen: Soft, non tender, not distended, normal bowel sounds Neuro: Awake, alert, oriented, conversing well, non focal Extremities: Chronic trace edema : scrotal cellulitis with erythema, tenderness and swelling noted. Results & Data Results & Data ([facility]) Vital Signs (Past 12 Hours) Vital Signs Temp Pulse Resp BP BP Pulse Ox O2 Del Method 03/27/22 15:30 38.8 C H 91 H 20 147/74 H 95 Room Air 03/27/22 10:55 37.1 C 85 18 169/67 H 96 Room Air 03/27/22 08:01 36.8 C 103 H 20 168/75 H 95 Room Air Laboratory Results Short CBC 03/27/22 Range/Units 07:17 WBC 18.53 H (4.8-10.8) K/ul Hgb 11.3 L (14.0-18.0) g/dl Hct 33.0 L (40.1-51.0) % Plt Count 241 (130-400) K/uL BMP 03/27/22 07:17 Sodium 132 L Potassium 3.3 L Chloride 99 Carbon Dioxide 22 BUN 17 Creatinine 0.97 Glucose 205 H Calcium 8.5 Urine 03/27/22 Range/Units 03:00 Urine Color Yellow Urine Appearance Clear (Clear) Urine pH 5.5 (4.5-7.5) Ur Specific [place] 1.023 (1.000-1.030) Urine Protein 1+ H (Negative) Urine Glucose (UA) Trace H (Negative) Medications Administered Current Inpatient Medications Acetaminophen (Acetaminophen 325 Mg Tab) 650 mg PO Q4H PRN PRN Reason: Pain or Fever Stop: 04/24/22 13:20 Last Admin: 08/21/22 22:32 Dose: 650 mg Aspirin (Aspirin 81 Mg Ectab) 81 mg PO DAILY [facility] Stop: 04/25/22 08:59 Last Admin: 03/27/22 09:53 Dose: 81 mg Benzonatate (Benzonatate 100 Mg Capsule) 200 mg PO TID [facility] Stop: 04/25/22 14:29 Last Admin: 03/27/22 14:02 Dose: 200 mg Dextrose (Dextrose 50% 50 Ml Syringe) 25 - 50 ml IV UD PRN; Protocol PRN Reason: Hypoglycemia Protocol Stop: 04/24/22 13:20 Enoxaparin Sodium (Enoxaparin Inj 40 Mg/0.4 Ml Syr) 40 mg SQ Q24H [facility] Stop: 04/24/22 15:59 Last Admin: 03/26/22 17:00 Dose: 40 mg Glucagon (Glucagon For Inj 1 Mg Vial) 1 mg SQ UD PRN; Protocol PRN Reason: Hypoglycemia Protocol Stop: 04/24/22 13:20 Glucose (Glucose 40% Gel 15 Gm Tube) 15 - 30 gm PO UD PRN; Protocol PRN Reason: Hypoglycemia Protocol Stop: 04/24/22 13:20 Glucose (Glucose 10 Tab/Tube) 4 - 8 tab PO UD PRN; Protocol PRN Reason: Hypoglycemia Treatment Stop: 04/24/22 13:20 Guaifenesin/Codeine Phosphate (Guaifenesin/Codeine 100mg/10mg 5ml Udc) 5 ml PO Q6H PRN PRN Reason: Cough Stop: 04/24/22 21:29 Last Admin: 03/26/22 22:32 Dose: 5 ml Piperacillin Sod/Tazobactam (Sod 4.5 gm/ Dextrose) 120 mls @ 30 mls/hr IV Q8H [facility]; Protocol Stop: 04/01/22 13:59 Last Admin: 03/27/22 15:08 Dose: 30 mls/hr Daptomycin 400 mg/ Syringe 8 mls @ 0 mls/min IV Q24H [facility]; Protocol Stop: 04/01/22 21:59 Last Admin: 03/26/22 21:02 Dose: 4 mls/min Insulin Aspart (Insulin Aspart Per Unit) 0 units SC ACHS [facility] Stop: 04/24/22 13:20 Last Admin: 03/27/22 12:25 Dose: 7 units Insulin Glargine (Lantus Per Unit Charge) 5 units SQ BID [facility] Stop: 04/24/22 13:20 Last Admin: 03/27/22 10:11 Dose: 5 units Losartan Potassium (Losartan Potassium 25 Mg Tab) 25 mg PO QAM [facility] Stop: 04/26/22 08:59 Last Admin: 03/27/22 09:48 Dose: 25 mg Miscellaneous (Carbohydrates For Hypoglycemia ) 15 - 30 gm PO UD PRN PRN Reason: Hypoglycemia Protocol Stop: 04/24/22 13:20 Chlorpheniramine: Non-Formulary Patient's Own Med 1 each PO Q6 [facility] Stop: 04/25/22 20:59 Last Admin: 03/27/22 12:29 Dose: 1 tab Nystatin (Nystatin Powder 15gm Btl) 1 appln EXT BID [facility] Stop: 04/24/22 13:20 Last Admin: 03/27/22 09:54 Dose: 1 appln Ondansetron HCl (Ondansetron Inj 2 Mg/Ml 2 Ml Vial) 4 mg IV Q6H PRN PRN Reason: Nausea Stop: 04/24/22 13:20 Last Admin: 03/27/22 15:09 Dose: 4 mg Polyethylene Glycol (Polyethylene (Miralax) 17 Gm Pack) 17 gm PO DAILY PRN PRN Reason: Constipation Stop: 04/24/22 13:20 Potassium Chloride (Potassium Chloride Crtab 20 Meq Tabcr) 40 meq PO NOW ONE Stop: 03/27/22 16:50 Tramadol HCl (Tramadol Hcl 50 Mg Tablet) 50 mg PO Q6H PRN PRN Reason: Pain Stop: 04/26/22 05:45 Last Admin: 03/27/22 06:21 Dose: 50 mg
[2022-03-27] MEDS: ENOXAPARIN INJ 40 MG/0.4 ML SYR SQ SCH (17:06)
[2022-03-27] MEDS: guaiFENesin/CODEINE 100MG/10MG 5ML UDC PO PRN (19:51)
[2022-03-27] MEDS: DAPTOmycin 400 MG in SYRINGE 0 ML IV SCH (21:39)
[2022-03-28] MEDS: CHLORPHENIRAMINE PO SCH ×4 (00:54→17:17)
[2022-03-28] MEDS: PIPERACILLIN/TAZOBACTAM 4.5 GM in DEXTROSE 5% 100 ML IV SCH ×3 (05:19→21:09)
[2022-03-28 06:40] LABS: Hematocrit (blood only) 32.3 % (40.1-51.0); Hemoglobin 11.2 g/dl (14.0-18.0); Mean Corpuscular Hemoglobin 31.5 pg (25.0-34.0); Mean Corpuscular Hgb Conc 34.7 g/dL (32.0-36.0); Mean Corpuscular Volume 90.7 fL (80.0-100.0); Mean Platelet Volume 10.1 fL (9.4-12.4); Platelet Count 260 K/uL (130-400); RDW Standard Deviation 40.1 fL (36.4-46.3); Red Blood Count 3.56 M/uL (4.63-6.08); White Blood Count 19.09 K/ul (4.8-10.8)
[2022-03-28 07:14] LABS: BUN Creatinine Ratio 19.4 (10-20); Calcium 8.5 mg/dl (8.5-10.1); Creatinine Clr Calc Pharmacy 110.6 ml/min; Est GFR (African American) 100.2 ml/min; Est GFR (Non-African American) 86.5 ml/min; Potassium 3.5 mmol/L (3.5-5.1)
[2022-03-28] MEDS: BENZONATATE 100 MG CAPSULE PO SCH ×3 (07:58→19:51)
[2022-03-28] MEDS: LOSARTAN POTASSIUM 25 MG TAB PO SCH (07:59)
[2022-03-28] MEDS: LANTUS PER UNIT CHARGE SQ SCH ×2 (07:59→21:10)
[2022-03-28] MEDS: NYSTATIN POWDER 15GM BTL EXT SCH ×2 (08:00→20:03)
[2022-03-28] MEDS: ASPIRIN 81 MG ECTAB PO SCH (08:37)
--- NOTE | 2022-03-28 08:39 | Urology Progress Note ---
Date of Service March 28, 2022 Assessment & Plan (1) Cellulitis, scrotum: Plan: Scrotal cellulitis with possible underlying epididymoorchitis For now I do not believe he has any signs or symptoms that warrant surgical intervention, however he requires close monitoring and continuation of broad- spectrum antibiotics. I anticipate that he will develop an eschar over this denuded skin over the next few days, as long as he remains hemodynamically stable and does not exhibit other signs of progression to Mehnaz's gangrene or true abscess, we will likely manage him conservatively. Anticipated to be several days before his white blood cell count decreases. If he begins to clinically worsen, I would have a relatively low threshold to perform a pelvic CT to rule out any progression to abscess or air forming infection. I think we can likely observe for another day before determining if we need to perform a CT. We will continue to follow him with serial exams to ensure no significant changes justify a change in our management. Admission and Anticipated Discharge Date Admission Date: March 25, 2022 Subjective Patient admitted yesterday with significant scrotal cellulitis He had an ultrasound performed on 03/25 which did not show abscess but showed scrotal edema. He has an elevated white count of 19,000 He had a T-max of 38.8 yesterday afternoon but is currently afebrile and hemodynamically stable. Subjectively he reports that he feels better and feels that there is been some reduction in edema as well as discomfort. He is still quite sensitive. He is on daptomycin and Zosyn. Physical Exam Physical Exam: Entire scrotum is erythematous with some denuded skin over the dependent portion of the left hemiscrotum. There is some ecchymosis in this area but no definitive eschar at this point. He has no crepitus, he has no palpable fluctuance or abscess. There is no draining sinus. He is quite tender. This does not extend down to his lower abdomen or thighs at this point. It does not involve the perineum. Results & Data ([facility]) Vital Signs (Past 12 Hours) Vital Signs Temp Pulse Pulse Resp BP BP Pulse Ox 03/28/22 04:00 37.0 C 92 H 18 153/77 H 92 03/27/22 23:51 37.0 C 90 18 123/70 92 03/27/22 23:28 94 H O2 Del Method 03/28/22 04:00 Room Air 03/27/22 23:51 Room Air 03/27/22 23:28 PG Care Time/CCT Total # of Minutes Spent Total Time Spent with Patient: Total time spent is greater than 50% in coordination of care (as documented) at patient's floor/unit and/or counseling patient: Coding Level of Care Code 69823 Subseq Hosp Care Lvl 3 Diagnoses Cellulitis, scrotum N49.2
[2022-03-28] MEDS: INSULIN ASPART PER UNIT SC SCH ×4 (08:55→21:01)
--- NOTE | 2022-03-28 11:06 | Hospitalist Progress Note ---
Date of Service March 28, 2022 Assessment & Plan (1) Cellulitis, scrotum: Plan: 66-year-old male with PMH HTN, dyslipidemia, DM II, h/o perianal abscess presented to ER with complaint of scrotal erythema, edema and tenderness x 2 days. Patient noticed non-tender lump to distal left scrotum on 03/19/22. PCP f/u on 03/22/22 and was prescribed Bactrim. Took for 2 days. Denies fever/chills, vomiting, known trauma, penile discharge, urinary symptoms. +mild nausea. In ER afebrile, initial P: 115 down to 91, R: 18, BP 162/132 down to 161/80, 97% on room air. WBC: 17, lactate: WNL. Ultrasound scrotum: There is diffuse scrotal wall thickening consistent with the reported history of cellulitis. Question mild hyperemia of the right epididymis and both testes. Correlate clinically for evidence of epididymoorchitis. In ER given Zosyn, vancomycin, 500 mL NSS Blood cultures obtained after initial antibiotics given Scrotal cellulitis, possible epididymoorchitis Meets sepsis criteria with tachycardia, leucocytosis. procal 0.6 continue empiric IV ABx for now- still with persistent leucocytosis and fever. UA reviewed, urine clx pending, blood clx negative, MRSA screen negative Urology following- recommendations noted- plan for CT pelvis if worsens to r/o abscess or gangrene Consult ID since not improving (2) Abnormal ultrasound: Plan: Scrotum US: A 3 mm indeterminant hypoechoic nodule is identified in the right testis. A small testicular neoplasm is not excluded. Nonemergent follow-up with urology is recommended, as is a precautionary 3-4 month follow-up scrotal ultrasound. Urology already following (3) Hyponatremia: Plan: overall stable, will monitor (4) Hyperglycemia: (5) Diabetes mellitus, type II: Plan: Glucose 273 A1c: 7.9 on 03/01/2022 On Trulicity every sunday Basal bolus insulin per protocol- adjust as indicated (6) HTN (hypertension): Plan: Gets cough with lisinopril and hence discontinued. started on losartan instead. hold HCTZ for now. Cough improved (7) Hypokalemia: Plan: Resolved Plan DVT ppx- sc lovenox Dispo- Continue iv antibiotics for scrotal cellulitis- monitor for improvement. Admission and Anticipated Discharge Date Admission Date: March 25, 2022 Subjective Feels slightly better. Still with scrotal pain, swelling and erythema. Intermittent fever. No other issues. Physical Exam Physical Exam: General: Morbidly obese, sitting comfortably in bed, not in distress, on room air HEENT: EOMI, PERRL, MMM Chest: Clear breath sounds bilaterally, no wheezes or crackles CVS: regular, normal heart sounds, no murmur Abdomen: Soft, non tender, not distended, normal bowel sounds Neuro: Awake, alert, oriented, conversing well, non focal Extremities: Chronic trace edema : scrotal cellulitis with erythema, tenderness and swelling noted. Now has denuded skin over left scrotum. Results & Data Results & Data ([facility]) Vital Signs (Past 12 Hours) Vital Signs Temp Pulse Pulse Resp BP BP Pulse Ox 03/28/22 08:00 03/28/22 08:44 37.1 C 72 18 149/80 H 95 03/28/22 04:00 37.0 C 92 H 18 153/77 H 92 03/27/22 23:51 37.0 C 90 18 123/70 92 03/27/22 23:28 94 H O2 Del Method 03/28/22 08:00 Room Air 03/28/22 08:44 Room Air 03/28/22 04:00 Room Air 03/27/22 23:51 Room Air 03/27/22 23:28 Laboratory Results Short CBC 03/28/22 Range/Units 05:58 WBC 19.09 H (4.8-10.8) K/ul Hgb 11.2 L (14.0-18.0) g/dl Hct 32.3 L (40.1-51.0) % Plt Count 260 (130-400) K/uL BMP 03/28/22 05:58 Sodium 131 L Potassium 3.5 Chloride 99 Carbon Dioxide 23 BUN 18 Creatinine 0.93 Glucose 180 H Calcium 8.5 Medications Administered Current Inpatient Medications Acetaminophen (Acetaminophen 325 Mg Tab) 650 mg PO Q4H PRN PRN Reason: Pain or Fever Stop: 04/24/22 13:20 Last Admin: 03/26/22 22:32 Dose: 650 mg Aspirin (Aspirin 81 Mg Ectab) 81 mg PO DAILY [facility] Stop: 04/25/22 08:59 Last Admin: 03/28/22 08:37 Dose: 81 mg Benzonatate (Benzonatate 100 Mg Capsule) 200 mg PO TID [facility] Stop: 04/25/22 14:29 Last Admin: 03/28/22 07:58 Dose: Not Given Dextrose (Dextrose 50% 50 Ml Syringe) 25 - 50 ml IV UD PRN; Protocol PRN Reason: Hypoglycemia Protocol Stop: 04/24/22 13:20 Enoxaparin Sodium (Enoxaparin Inj 40 Mg/0.4 Ml Syr) 40 mg SQ Q24H [facility] Stop: 04/24/22 15:59 Last Admin: 03/27/22 17:06 Dose: 40 mg Glucagon (Glucagon For Inj 1 Mg Vial) 1 mg SQ UD PRN; Protocol PRN Reason: Hypoglycemia Protocol Stop: 04/24/22 13:20 Glucose (Glucose 40% Gel 15 Gm Tube) 15 - 30 gm PO UD PRN; Protocol PRN Reason: Hypoglycemia Protocol Stop: 04/24/22 13:20 Glucose (Glucose 10 Tab/Tube) 4 - 8 tab PO UD PRN; Protocol PRN Reason: Hypoglycemia Treatment Stop: 04/24/22 13:20 Guaifenesin/Codeine Phosphate (Guaifenesin/Codeine 100mg/10mg 5ml Udc) 5 ml PO Q6H PRN PRN Reason: Cough Stop: 04/24/22 21:29 Last Admin: 03/27/22 19:51 Dose: 5 ml Piperacillin Sod/Tazobactam (Sod 4.5 gm/ Dextrose) 120 mls @ 30 mls/hr IV Q8H [facility]; Protocol Stop: 04/01/22 13:59 Last Infusion: 03/28/22 09:26 Dose: Infused Daptomycin 400 mg/ Syringe 8 mls @ 0 mls/min IV Q24H [facility]; Protocol Stop: 04/01/22 21:59 Last Admin: 03/27/22 21:39 Dose: 4 mls/min Insulin Aspart (Insulin Aspart Per Unit) 0 units SC ACHS [facility] Stop: 04/24/22 13:20 Last Admin: 03/28/22 08:55 Dose: 7 units Insulin Glargine (Lantus Per Unit Charge) 10 units SQ BID [facility] Stop: 04/26/22 20:59 Last Admin: 03/28/22 07:59 Dose: 10 units Losartan Potassium (Losartan Potassium 25 Mg Tab) 25 mg PO QAM [facility] Stop: 04/26/22 08:59 Last Admin: 03/28/22 07:59 Dose: 25 mg Miscellaneous (Carbohydrates For Hypoglycemia ) 15 - 30 gm PO UD PRN PRN Reason: Hypoglycemia Protocol Stop: 04/24/22 13:20 Chlorpheniramine: Non-Formulary Patient's Own Med 1 each PO Q6 [facility] Stop: 04/25/22 20:59 Last Admin: 03/28/22 05:20 Dose: 1 tab Nystatin (Nystatin Powder 15gm Btl) 1 appln EXT BID [facility] Stop: 04/24/22 13:20 Last Admin: 03/28/22 08:00 Dose: 1 appln Ondansetron HCl (Ondansetron Inj 2 Mg/Ml 2 Ml Vial) 4 mg IV Q6H PRN PRN Reason: Nausea Stop: 04/24/22 13:20 Last Admin: 03/27/22 15:09 Dose: 4 mg Polyethylene Glycol (Polyethylene (Miralax) 17 Gm Pack) 17 gm PO DAILY PRN PRN Reason: Constipation Stop: 04/24/22 13:20 Tramadol HCl (Tramadol Hcl 50 Mg Tablet) 50 mg PO Q6H PRN PRN Reason: Pain Stop: 04/26/22 05:45 Last Admin: 03/27/22 21:32 Dose: 50 mg
[2022-03-28 14:05] LABS: Cdiff Antigen Positive; Cdiff Toxin A+B Negative Cdiff Toxin (Negative)
[2022-03-28] MEDS: ENOXAPARIN INJ 40 MG/0.4 ML SYR SQ SCH (16:59)
[2022-03-28] MEDS: traMADol HCL 50 MG TABLET PO PRN (17:17)
[2022-03-28] MEDS: DAPTOmycin 400 MG in SYRINGE 0 ML IV SCH (21:09)
[2022-03-29] MEDS: CHLORPHENIRAMINE PO SCH ×5 (00:39→23:56)
[2022-03-29] MEDS: PIPERACILLIN/TAZOBACTAM 4.5 GM in DEXTROSE 5% 100 ML IV SCH ×3 (05:29→21:40)
[2022-03-29] MEDS: traMADol HCL 50 MG TABLET PO PRN (05:30)
[2022-03-29 07:10] LABS: Hematocrit (blood only) 32.8 % (40.1-51.0); Hemoglobin 11.3 g/dl (14.0-18.0); Mean Corpuscular Hemoglobin 31.2 pg (25.0-34.0); Mean Corpuscular Hgb Conc 34.5 g/dL (32.0-36.0); Mean Corpuscular Volume 90.6 fL (80.0-100.0); Mean Platelet Volume 9.8 fL (9.4-12.4); Platelet Count 269 K/uL (130-400); RDW Coefficient of Variation 11.9 % (11.5-14.5); RDW Standard Deviation 39.8 fL (36.4-46.3); Red Blood Count 3.62 M/uL (4.63-6.08); White Blood Count 14.19 K/ul (4.8-10.8)
[2022-03-29 07:37] LABS: BUN Creatinine Ratio 18.8 (10-20); Calcium 8.6 mg/dl (8.5-10.1); Creatinine Clr Calc Pharmacy 128.5 ml/min; Est GFR (African American) 109.4 ml/min; Est GFR (Non-African American) 94.4 ml/min; Potassium 3.2 mmol/L (3.5-5.1)
[2022-03-29] MEDS: BENZONATATE 100 MG CAPSULE PO SCH ×3 (09:14→21:38)
[2022-03-29] MEDS: LOSARTAN POTASSIUM 25 MG TAB PO SCH (09:14)
[2022-03-29] MEDS: NYSTATIN POWDER 15GM BTL EXT SCH ×2 (09:14→21:39)
[2022-03-29] MEDS: ASPIRIN 81 MG ECTAB PO SCH (09:14)
--- NOTE | 2022-03-29 09:15 | Urology Progress Note ---
Date of Service March 29, 2022 Assessment & Plan (1) Epididymoorchitis: (2) Cellulitis, scrotum: Plan Epididymitis/cellulitisboth seem to be improving with antibiotics He understands that this will be a long course and gradual recovery We will continue to monitor his exam to ensure he does not form an abscess or other surgical infection Now he does seem to be progressing appropriately I anticipate eschar formation over the sloughed skin Continue to monitor white blood cell count, continue broad-spectrum antibiotics He reports that he is having some difficulty urinating because of the edema of his penis I did offer him [place] catheter but he was not certain he wanted to pursue this Is not unreasonable if he is having difficulty emptying his bladder Admission and Anticipated Discharge Date Admission Date: March 25, 2022 Subjective Subjectively feeling better today He was afebrile for the past 24 hours His vitals are stable His white blood cell count is decreased from 19-14,000 Still quite tender and still swollen Reports he is having some difficulty passing his urine We discussed the catheter but is not certain he is ready for that yet Physical Exam Physical Exam: Scrotum remains uniformly swollen and edematous I do not feel any fluctuance or drainable abscess He continues to have some progressive ecchymosis and skin sloughing of the dependent portion of the left hemiscrotumno eschar yet but anticipate will form He has no crepitus There is no drainage of pus Erythema has decreased since yesterday Results & Data ([facility]) Vital Signs (Past 12 Hours) Vital Signs Temp Pulse Pulse Resp BP BP Pulse Ox 03/29/22 08:08 68 03/29/22 07:00 36.5 C 73 20 135/77 93 03/29/22 03:47 37.0 C 76 18 142/78 H 93 03/28/22 23:00 37.0 C 77 18 137/74 98 03/28/22 21:38 80 O2 Del Method 03/29/22 08:08 03/29/22 07:00 Room Air 03/29/22 03:47 Room Air 03/28/22 23:00 Room Air 03/28/22 21:38 PG Care Time/CCT Total # of Minutes Spent Total Time Spent with Patient: Total time spent is greater than 50% in coordination of care (as documented) at patient's floor/unit and/or counseling patient: Coding Level of Care Code 50548 Subseq Hosp Care Lvl 3 Diagnoses Epididymoorchitis N45.3 Cellulitis, scrotum N49.2
[2022-03-29] MEDS: INSULIN ASPART PER UNIT SC SCH ×4 (09:21→21:38)
[2022-03-29] MEDS: LANTUS PER UNIT CHARGE SQ SCH ×2 (09:21→21:38)
[2022-03-29] MEDS: POTASSIUM CHLORIDE CRTAB 20 MEQ TABCR PO SCH (09:25)
[2022-03-29] MEDS: VANCOMYCIN HCL 125 MG/2.5ML SOLN PO SCH ×3 (12:25→23:55)
[2022-03-29] MEDS: RASPBERRY SYRUP 5 ML UDP PO SCH ×3 (12:25→23:55)
--- NOTE | 2022-03-29 14:15 | Hospitalist Progress Note ---
Date of Service March 29, 2022 Assessment & Plan (1) Cellulitis, scrotum: Plan: 66-year-old male with PMH HTN, dyslipidemia, DM II, h/o perianal abscess presented to ER with complaint of scrotal erythema, edema and tenderness x 2 days. Patient noticed non-tender lump to distal left scrotum on 03/19/22. PCP f/u on 03/22/22 and was prescribed Bactrim. Took for 2 days. Denies fever/chills, vomiting, known trauma, penile discharge, urinary symptoms. +mild nausea. In ER afebrile, initial P: 115 down to 91, R: 18, BP 162/132 down to 161/80, 97% on room air. WBC: 17, lactate: WNL. Ultrasound scrotum: There is diffuse scrotal wall thickening consistent with the reported history of cellulitis. Question mild hyperemia of the right epididymis and both testes. Correlate clinically for evidence of epididymoorchitis. In ER given Zosyn, vancomycin, 500 mL NSS Blood cultures obtained after initial antibiotics given Scrotal cellulitis, possible epididymoorchitis Meets sepsis criteria with tachycardia, leucocytosis. procal 0.6 continue empiric IV ABx for now- still with persistent leucocytosis and fever. UA reviewed, urine clx negative, blood clx negative, MRSA screen negative Urology following- recommendations noted- plan for CT pelvis if worsens to r/o abscess or gangrene Currently seems to be improving slowly- leucocytosis improving, no more fever, clinically improving ID eval pending (2) Abnormal ultrasound: Plan: Scrotum US: A 3 mm indeterminant hypoechoic nodule is identified in the right testis. A small testicular neoplasm is not excluded. Nonemergent follow-up with urology is recommended, as is a precautionary 3-4 month follow-up scrotal ultrasound. Urology already following (3) Hyponatremia: Plan: overall stable and improving, will monitor (4) Hyperglycemia: (5) Diabetes mellitus, type II: Plan: Glucose 273 A1c: 7.9 on 03/01/2022 On Trulicity every sunday Basal bolus insulin per protocol- adjust as indicated- adjusted today again (6) HTN (hypertension): Plan: Gets cough with lisinopril and hence discontinued. started on losartan instead. hold HCTZ for now. Cough improved (7) Hypokalemia: Plan: repleted Plan DVT ppx- sc lovenox Dispo- Continue iv antibiotics for scrotal cellulitis- monitor for improvement. Admission and Anticipated Discharge Date Admission Date: March 25, 2022 Subjective feels slightly better. pain and swelling slightly improved. he is concerned about not being able to urinate because of the edema but he declined vásquez. no other issues. Physical Exam Physical Exam: General: Morbidly obese, sitting comfortably in bed, not in distress, on room air HEENT: EOMI, PERRL, MMM Chest: Clear breath sounds bilaterally, no wheezes or crackles CVS: regular, normal heart sounds, no murmur Abdomen: Soft, non tender, not distended, normal bowel sounds Neuro: Awake, alert, oriented, conversing well, non focal Extremities: No edema : scrotal cellulitis with erythema, tenderness and swelling noted- seems improving although slowly. Also noted denuded skin over left scrotum. Results & Data Results & Data ([facility]) Vital Signs (Past 12 Hours) Vital Signs Temp Pulse Pulse Resp BP BP Pulse Ox 03/29/22 10:58 36.3 C L 97 H 20 167/94 H 97 03/29/22 08:08 68 03/29/22 07:00 36.5 C 73 20 135/77 93 03/29/22 03:47 37.0 C 76 18 142/78 H 93 O2 Del Method 03/29/22 10:58 Room Air 03/29/22 08:08 03/29/22 07:00 Room Air 03/29/22 03:47 Room Air Laboratory Results Short CBC 03/29/22 Range/Units 06:47 WBC 14.19 H (4.8-10.8) K/ul Hgb 11.3 L (14.0-18.0) g/dl Hct 32.8 L (40.1-51.0) % Plt Count 269 (130-400) K/uL BMP 03/29/22 06:47 Sodium 133 L Potassium 3.2 L Chloride 100 Carbon Dioxide 25 BUN 15 Creatinine 0.80 Glucose 156 H Calcium 8.6 Medications Administered Current Inpatient Medications Acetaminophen (Acetaminophen 325 Mg Tab) 650 mg PO Q4H PRN PRN Reason: Pain or Fever Stop: 04/24/22 13:20 Last Admin: 03/26/22 22:32 Dose: 650 mg Aspirin (Aspirin 81 Mg Ectab) 81 mg PO DAILY [facility] Stop: 04/25/22 08:59 Last Admin: 03/29/22 09:14 Dose: 81 mg Benzonatate (Benzonatate 100 Mg Capsule) 200 mg PO TID [facility] Stop: 04/25/22 14:29 Last Admin: 03/29/22 09:14 Dose: Not Given Dextrose (Dextrose 50% 50 Ml Syringe) 25 - 50 ml IV UD PRN; Protocol PRN Reason: Hypoglycemia Protocol Stop: 04/24/22 13:20 Enoxaparin Sodium (Enoxaparin Inj 40 Mg/0.4 Ml Syr) 40 mg SQ Q24H [facility] Stop: 04/24/22 15:59 Last Admin: 03/28/22 16:59 Dose: 40 mg Glucagon (Glucagon For Inj 1 Mg Vial) 1 mg SQ UD PRN; Protocol PRN Reason: Hypoglycemia Protocol Stop: 04/24/22 13:20 Glucose (Glucose 40% Gel 15 Gm Tube) 15 - 30 gm PO UD PRN; Protocol PRN Reason: Hypoglycemia Protocol Stop: 04/24/22 13:20 Glucose (Glucose 10 Tab/Tube) 4 - 8 tab PO UD PRN; Protocol PRN Reason: Hypoglycemia Treatment Stop: 04/24/22 13:20 Guaifenesin/Codeine Phosphate (Guaifenesin/Codeine 100mg/10mg 5ml Udc) 5 ml PO Q6H PRN PRN Reason: Cough Stop: 04/24/22 21:29 Last Admin: 03/27/22 19:51 Dose: 5 ml Piperacillin Sod/Tazobactam (Sod 4.5 gm/ Dextrose) 120 mls @ 30 mls/hr IV Q8H [facility]; Protocol Stop: 04/01/22 13:59 Last Infusion: 03/29/22 10:06 Dose: Infused Daptomycin 400 mg/ Syringe 8 mls @ 0 mls/min IV Q24H [facility]; Protocol Stop: 04/01/22 21:59 Last Admin: 03/28/22 21:09 Dose: 4 mls/min Insulin Aspart (Insulin Aspart Per Unit) 0 units SC ACHS [facility] Stop: 04/24/22 13:20 Last Admin: 03/29/22 12:30 Dose: 3 units Insulin Glargine (Lantus Per Unit Charge) 10 units SQ BID [facility] Stop: 04/26/22 20:59 Last Admin: 03/29/22 09:21 Dose: 10 units Losartan Potassium (Losartan Potassium 25 Mg Tab) 25 mg PO QAM [facility] Stop: 04/26/22 08:59 Last Admin: 03/29/22 09:14 Dose: 25 mg Miscellaneous (Carbohydrates For Hypoglycemia ) 15 - 30 gm PO UD PRN PRN Reason: Hypoglycemia Protocol Stop: 04/24/22 13:20 Chlorpheniramine: Non-Formulary Patient's Own Med 1 each PO Q6 [facility] Stop: 04/25/22 20:59 Last Admin: 03/29/22 12:25 Dose: 1 tab Nystatin (Nystatin Powder 15gm Btl) 1 appln EXT BID [facility] Stop: 04/24/22 13:20 Last Admin: 03/29/22 09:14 Dose: 1 appln Ondansetron HCl (Ondansetron Inj 2 Mg/Ml 2 Ml Vial) 4 mg IV Q6H PRN PRN Reason: Nausea Stop: 04/24/22 13:20 Last Admin: 03/27/22 15:09 Dose: 4 mg Polyethylene Glycol (Polyethylene (Miralax) 17 Gm Pack) 17 gm PO DAILY PRN PRN Reason: Constipation Stop: 04/24/22 13:20 Potassium Chloride (Potassium Chloride Crtab 20 Meq Tabcr) 40 meq PO DAILY [facility] Stop: 04/28/22 08:59 Last Admin: 03/29/22 09:25 Dose: 40 meq Raspberry (Raspberry Syrup 5 Ml Udp) 5 ml PO Q6 [facility] Stop: 04/08/22 11:59 Last Admin: 03/29/22 12:25 Dose: 5 ml Tramadol HCl (Tramadol Hcl 50 Mg Tablet) 50 mg PO Q6H PRN PRN Reason: Pain Stop: 04/26/22 05:45 Last Admin: 03/29/22 05:30 Dose: 50 mg Vancomycin HCl (Vancomycin Hcl 125 Mg/2.5ml Soln) 125 mg PO Q6 [facility] Stop: 04/08/22 11:59 Last Admin: 03/29/22 12:25 Dose: 125 mg
[2022-03-29] MEDS: ENOXAPARIN INJ 40 MG/0.4 ML SYR SQ SCH (16:52)
[2022-03-29] MEDS: ACETAMINOPHEN 325 MG TAB PO PRN (18:19)
[2022-03-29] MEDS: DAPTOmycin 400 MG in SYRINGE 0 ML IV SCH (21:39)
[2022-03-30] MEDS: traMADol HCL 50 MG TABLET PO PRN ×2 (04:05→09:41)
[2022-03-30] MEDS: VANCOMYCIN HCL 125 MG/2.5ML SOLN PO SCH ×3 (05:41→17:49)
[2022-03-30] MEDS: RASPBERRY SYRUP 5 ML UDP PO SCH ×3 (05:41→17:49)
[2022-03-30] MEDS: CHLORPHENIRAMINE PO SCH ×3 (05:41→17:50)
[2022-03-30] MEDS: PIPERACILLIN/TAZOBACTAM 4.5 GM in DEXTROSE 5% 100 ML IV SCH ×3 (05:43→21:13)
[2022-03-30 06:31] LABS: Hematocrit (blood only) 32.6 % (40.1-51.0); Hemoglobin 11.1 g/dl (14.0-18.0); Mean Corpuscular Hemoglobin 31.4 pg (25.0-34.0); Mean Corpuscular Volume 92.4 fL (80.0-100.0); Mean Platelet Volume 9.7 fL (9.4-12.4); Platelet Count 285 K/uL (130-400); RDW Coefficient of Variation 12.1 % (11.5-14.5); RDW Standard Deviation 41.2 fL (36.4-46.3); Red Blood Count 3.53 M/uL (4.63-6.08); White Blood Count 10.15 K/ul (4.8-10.8)
[2022-03-30 07:01] LABS: BUN Creatinine Ratio 17.6 (10-20); Calcium 8.4 mg/dl (8.5-10.1); Est GFR (Non-African American) 97.5 ml/min; Potassium 3.5 mmol/L (3.5-5.1)
[2022-03-30] MEDS: ASPIRIN 81 MG ECTAB PO SCH (09:42)
[2022-03-30] MEDS: LOSARTAN POTASSIUM 25 MG TAB PO SCH (09:43)
[2022-03-30] MEDS: POTASSIUM CHLORIDE CRTAB 20 MEQ TABCR PO SCH (09:43)
[2022-03-30] MEDS: BENZONATATE 100 MG CAPSULE PO SCH ×3 (09:43→21:11)
[2022-03-30] MEDS: NYSTATIN POWDER 15GM BTL EXT SCH ×2 (09:48→21:12)
[2022-03-30] MEDS: INSULIN ASPART PER UNIT SC SCH ×4 (10:19→21:12)
[2022-03-30] MEDS: LANTUS PER UNIT CHARGE SQ SCH ×2 (10:20→21:11)
--- NOTE | 2022-03-30 10:51 | Urology Progress Note ---
Date of Service March 30, 2022 Assessment & Plan (1) Epididymoorchitis: (2) Cellulitis, scrotum: Plan Epididymitis/cellulitis- both seem to be improving with antibiotics. He understands that this will be a long course and gradual recovery. Remains afebrile and hemodynamically stable. White count down to 10.15 today. Urine culture is final and negative. Blood cultures preliminary no growth x48 hours. Continue to monitor white blood cell count, continue broad-spectrum antibiotics. Continue with supportive care. Urology will follow. Admission and Anticipated Discharge Date Admission Date: March 25, 2022 Supervising Physician Co-Signing Physician Notes Saw patient with GAVIOTA. Agree with plan. Clinically improving and leukocytosis downtrending. Area of eschar on the inferior scrotum however no crepitus or fluctuance. No indication for urologic intervention. Continue to follow conservatively with antibiotics. Subjective Patient examined at bedside this AM with Dr. Macias. Awake, resting bed on arrival. No acute distress. Subjectively feeling better. Remains afebrile. Still with erythema and edema, but improved. Still quite tender on exam. Review of Systems Constitutional: as per Subjective / HPI Genitourinary: + as per Subjective / HPI Physical Exam Constitutional: + obese; no acute distress Respiratory: no respiratory distress and no labored breathing Neurologic: awake Psychiatric: Orientation: alert and oriented x 3 Genitourinary: Still with scrotal erythema and edema, but improved. Tender with palpation. No fluctuance or crepitus appreciated. No drainage noted. He continues to have some progressive ecchymosis and skin sloughing of the dependent portion of the left hemiscrotum. Results & Data ([facility]) Vital Signs (Past 12 Hours) Vital Signs Temp Pulse Resp BP Pulse Ox O2 Del Method 03/30/22 06:43 36.5 C 79 18 137/68 97 Room Air 03/30/22 00:00 36.5 C 78 18 139/79 97 Room Air PG Care Time/CCT Total # of Minutes Spent Total Time Spent with Patient: Total time spent is greater than 50% in coordination of care (as documented) at patient's floor/unit and/or counseling patient: Coding Level of Care Code 26461 Subseq Hosp Care Lvl 2 Diagnoses Epididymoorchitis N45.3 Cellulitis, scrotum N49.2
--- NOTE | 2022-03-30 13:30 | Hospitalist Progress Note ---
Date of Service March 30, 2022 Assessment & Plan (1) Cellulitis, scrotum: Plan: 66-year-old male with PMH HTN, dyslipidemia, DM II, h/o perianal abscess presented to ER with complaint of scrotal erythema, edema and tenderness x 2 days. Patient noticed non-tender lump to distal left scrotum on 03/19/22. PCP f/u on 03/22/22 and was prescribed Bactrim. Took for 2 days. Denies fever/chills, vomiting, known trauma, penile discharge, urinary symptoms. +mild nausea. In ER afebrile, initial P: 115 down to 91, R: 18, BP 162/132 down to 161/80, 97% on room air. WBC: 17, lactate: WNL. Ultrasound scrotum: There is diffuse scrotal wall thickening consistent with the reported history of cellulitis. Question mild hyperemia of the right epididymis and both testes. Correlate clinically for evidence of epididymoorchitis. In ER given Zosyn, vancomycin, 500 mL NSS Blood cultures obtained after initial antibiotics given Scrotal cellulitis, possible epididymoorchitis Meets sepsis criteria with tachycardia, leucocytosis. procal 0.6 Finally improving after multiple days of broad IV antibiotics. No more fever or leucocytosis. Urine clx negative, blood clx negative, MRSA screen negative continue empiric IV ABx for now- Urology following- recommendations noted ID eval pending (2) Abnormal ultrasound: Plan: Scrotum US: A 3 mm indeterminant hypoechoic nodule is identified in the right testis. A small testicular neoplasm is not excluded. Nonemergent follow-up with urology is recommended, as is a precautionary 3-4 month follow-up scrotal ultrasound. Urology already following (3) Hyponatremia: Plan: resolved (4) Diabetes mellitus, type II: Plan: Glucose 273 A1c: 7.9 on 03/01/2022 On Trulicity every sunday Basal bolus insulin per protocol- adjust as indicated- adjusted today again (5) HTN (hypertension): Plan: Gets cough with lisinopril and hence discontinued. started on losartan instead. hold HCTZ for now. Cough improved (6) Hypokalemia: Plan: resolved Plan DVT ppx- sc lovenox Dispo- Continue iv antibiotics for scrotal cellulitis- monitor for improvement. Admission and Anticipated Discharge Date Admission Date: March 25, 2022 Subjective Feeling better. Still with scrotal swelling and pain. She has been having BM as well as voiding. No fever, chills, chest pain, shortness of breath. No other issues. Physical Exam Physical Exam: General: Morbidly obese, sitting comfortably in bed, not in distress, on room air HEENT: EOMI, PERRL, MMM Chest: Clear breath sounds bilaterally, no wheezes or crackles CVS: regular, normal heart sounds, no murmur Abdomen: Soft, non tender, not distended, normal bowel sounds Neuro: Awake, alert, oriented, conversing well, non focal Extremities: No edema : scrotal cellulitis with erythema, tenderness and swelling noted- finally improving. Ecchymoses and skin sloughing over left scrotum. Results & Data Results & Data ([facility]) Vital Signs (Past 12 Hours) Vital Signs Temp Pulse Resp BP BP Pulse Ox O2 Del Method 03/30/22 11:50 36.4 C L 75 18 138/80 95 Room Air 03/30/22 06:43 36.5 C 79 18 137/68 97 Room Air Laboratory Results Short CBC 03/30/22 Range/Units 05:54 WBC 10.15 (4.8-10.8) K/ul Hgb 11.1 L (14.0-18.0) g/dl Hct 32.6 L (40.1-51.0) % Plt Count 285 (130-400) K/uL BMP 03/30/22 05:54 Sodium 136 Potassium 3.5 Chloride 103 Carbon Dioxide 26 BUN 13 Creatinine 0.74 Glucose 141 H Calcium 8.4 L Medications Administered Current Inpatient Medications Acetaminophen (Acetaminophen 325 Mg Tab) 650 mg PO Q4H PRN PRN Reason: Pain or Fever Stop: 04/24/22 13:20 Last Admin: 03/29/22 18:19 Dose: 650 mg Aspirin (Aspirin 81 Mg Ectab) 81 mg PO DAILY [facility] Stop: 04/25/22 08:59 Last Admin: 03/30/22 09:42 Dose: 81 mg Benzonatate (Benzonatate 100 Mg Capsule) 200 mg PO TID [facility] Stop: 04/25/22 14:29 Last Admin: 03/30/22 09:43 Dose: Not Given Dextrose (Dextrose 50% 50 Ml Syringe) 25 - 50 ml IV UD PRN; Protocol PRN Reason: Hypoglycemia Protocol Stop: 04/24/22 13:20 Enoxaparin Sodium (Enoxaparin Inj 40 Mg/0.4 Ml Syr) 40 mg SQ Q24H [facility] Stop: 04/24/22 15:59 Last Admin: 03/29/22 16:52 Dose: 40 mg Glucagon (Glucagon For Inj 1 Mg Vial) 1 mg SQ UD PRN; Protocol PRN Reason: Hypoglycemia Protocol Stop: 04/24/22 13:20 Glucose (Glucose 40% Gel 15 Gm Tube) 15 - 30 gm PO UD PRN; Protocol PRN Reason: Hypoglycemia Protocol Stop: 04/24/22 13:20 Glucose (Glucose 10 Tab/Tube) 4 - 8 tab PO UD PRN; Protocol PRN Reason: Hypoglycemia Treatment Stop: 04/24/22 13:20 Guaifenesin/Codeine Phosphate (Guaifenesin/Codeine 100mg/10mg 5ml Udc) 5 ml PO Q6H PRN PRN Reason: Cough Stop: 04/24/22 21:29 Last Admin: 03/27/22 19:51 Dose: 5 ml Piperacillin Sod/Tazobactam (Sod 4.5 gm/ Dextrose) 120 mls @ 30 mls/hr IV Q8H [facility]; Protocol Stop: 04/01/22 13:59 Last Infusion: 03/30/22 10:20 Dose: Infused Daptomycin 400 mg/ Syringe 8 mls @ 0 mls/min IV Q24H [facility]; Protocol Stop: 04/01/22 21:59 Last Admin: 03/29/22 21:39 Dose: 4 mls/min Insulin Aspart (Insulin Aspart Per Unit) 0 units SC ACHS [facility] Stop: 04/24/22 13:20 Last Admin: 03/30/22 12:49 Dose: 7 units Insulin Glargine (Lantus Per Unit Charge) 13 units SQ BID [facility] Stop: 04/28/22 20:59 Last Admin: 03/30/22 10:20 Dose: 13 units Losartan Potassium (Losartan Potassium 25 Mg Tab) 25 mg PO QAM [facility] Stop: 04/26/22 08:59 Last Admin: 03/30/22 09:43 Dose: 25 mg Miscellaneous (Carbohydrates For Hypoglycemia ) 15 - 30 gm PO UD PRN PRN Reason: Hypoglycemia Protocol Stop: 04/24/22 13:20 Chlorpheniramine: Non-Formulary Patient's Own Med 1 each PO Q6 [facility] Stop: 04/25/22 20:59 Last Admin: 03/30/22 12:50 Dose: 1 tab Nystatin (Nystatin Powder 15gm Btl) 1 appln EXT BID [facility] Stop: 04/24/22 13:20 Last Admin: 03/30/22 09:48 Dose: 1 appln Ondansetron HCl (Ondansetron Inj 2 Mg/Ml 2 Ml Vial) 4 mg IV Q6H PRN PRN Reason: Nausea Stop: 04/24/22 13:20 Last Admin: 03/27/22 15:09 Dose: 4 mg Polyethylene Glycol (Polyethylene (Miralax) 17 Gm Pack) 17 gm PO DAILY PRN PRN Reason: Constipation Stop: 04/24/22 13:20 Potassium Chloride (Potassium Chloride Crtab 20 Meq Tabcr) 40 meq PO DAILY [facility] Stop: 04/28/22 08:59 Last Admin: 03/30/22 09:43 Dose: 40 meq Raspberry (Raspberry Syrup 5 Ml Udp) 5 ml PO Q6 [facility] Stop: 04/08/22 11:59 Last Admin: 03/30/22 12:53 Dose: 5 ml Tramadol HCl (Tramadol Hcl 50 Mg Tablet) 50 mg PO Q6H PRN PRN Reason: Pain Stop: 04/26/22 05:45 Last Admin: 03/30/22 09:41 Dose: 50 mg Vancomycin HCl (Vancomycin Hcl 125 Mg/2.5ml Soln) 125 mg PO Q6 [facility] Stop: 04/08/22 11:59 Last Admin: 03/30/22 12:59 Dose: 125 mg
[2022-03-30] MEDS: ACETAMINOPHEN 325 MG TAB PO PRN ×2 (16:21→22:49)
[2022-03-30] MEDS: ENOXAPARIN INJ 40 MG/0.4 ML SYR SQ SCH (16:23)
[2022-03-30] MEDS: DAPTOmycin 400 MG in SYRINGE 0 ML IV SCH (21:12)
[2022-03-31] MEDS: RASPBERRY SYRUP 5 ML UDP PO SCH ×4 (00:05→17:23)
[2022-03-31] MEDS: VANCOMYCIN HCL 125 MG/2.5ML SOLN PO SCH ×4 (00:05→17:25)
[2022-03-31] MEDS: CHLORPHENIRAMINE PO SCH ×4 (00:05→17:14)
[2022-03-31] MEDS: PIPERACILLIN/TAZOBACTAM 4.5 GM in DEXTROSE 5% 100 ML IV SCH ×3 (05:48→22:00)
[2022-03-31 07:21] LABS: Hematocrit (blood only) 34.2 % (40.1-51.0); Hemoglobin 11.6 g/dl (14.0-18.0); Mean Corpuscular Hemoglobin 31.5 pg (25.0-34.0); Mean Corpuscular Hgb Conc 33.9 g/dL (32.0-36.0); Mean Corpuscular Volume 92.9 fL (80.0-100.0); Mean Platelet Volume 9.6 fL (9.4-12.4); Platelet Count 323 K/uL (130-400); RDW Coefficient of Variation 12.1 % (11.5-14.5); RDW Standard Deviation 41.6 fL (36.4-46.3); Red Blood Count 3.68 M/uL (4.63-6.08); White Blood Count 8.44 K/ul (4.8-10.8)
[2022-03-31 07:43] LABS: BUN Creatinine Ratio 15.6 (10-20); Calcium 8.5 mg/dl (8.5-10.1); Creatinine Clr Calc Pharmacy 133.6 ml/min; Est GFR (African American) 111.2 ml/min; Est GFR (Non-African American) 95.9 ml/min; Potassium 3.8 mmol/L (3.5-5.1)
[2022-03-31] MEDS: POTASSIUM CHLORIDE CRTAB 20 MEQ TABCR PO SCH (08:44)
[2022-03-31] MEDS: traMADol HCL 50 MG TABLET PO PRN (08:44)
[2022-03-31] MEDS: INSULIN ASPART PER UNIT SC SCH ×4 (08:45→21:59)
[2022-03-31] MEDS: ASPIRIN 81 MG ECTAB PO SCH (08:45)
[2022-03-31] MEDS: LOSARTAN POTASSIUM 25 MG TAB PO SCH (08:45)
[2022-03-31] MEDS: NYSTATIN POWDER 15GM BTL EXT SCH ×2 (08:46→21:59)
[2022-03-31] MEDS: BENZONATATE 100 MG CAPSULE PO SCH ×3 (08:51→21:54)
[2022-03-31] MEDS: LANTUS PER UNIT CHARGE SQ SCH ×2 (08:51→21:59)
--- NOTE | 2022-03-31 10:47 | Urology Progress Note ---
Date of Service March 31, 2022 Assessment & Plan (1) Cellulitis, scrotum: (2) Epididymoorchitis: Plan Epididymitis/cellulitis- seems to be improving gradually with antibiotics. Remains afebrile and hemodynamically stable. Leukocytosis improved. Urine and blood cultures negative. No indication for urologic intervention at this time. Continue broad-spectrum antibiotics. ID consultation pending. Continue supportive care. Urology will follow. Admission and Anticipated Discharge Date Admission Date: March 25, 2022 Supervising Physician Co-Signing Physician Notes Pt seen and examined. Less erythema, no crepitus, no fluctuance, but still with induration and edema. Eschar forming. - cont conservative management, no surgical indication at this stage - expect a very gradual recovery Subjective Patient examined at bedside this AM. Awake, resting bed on arrival. No acute d istress. Subjectively feels well. Remains afebrile. Still with some erythema and edema, but improved. Tender on exam. Ecchymosis to left hemiscrotum. Feels he is voiding ok today. On contact precautions for positive C. difficile. Offers no additional complaints at time of exam. Review of Systems Constitutional: as per Subjective / HPI Genitourinary: + as per Subjective / HPI Physical Exam Constitutional: + obese; no acute distress Respiratory: no respiratory distress and no labored breathing Neurologic: awake Psychiatric: Orientation: alert and oriented x 3 Genitourinary: Still with scrotal erythema and edema, but improving. Tender with palpation. No fluctuance or crepitus appreciated. No drainage noted. Ecchymosis and skin sloughing to left hemiscrotum. Results & Data ([facility]) Vital Signs (Past 12 Hours) Vital Signs Temp Pulse Resp BP Pulse Ox O2 Del Method 03/31/22 08:23 36.7 C 70 19 164/92 H 97 Room Air 03/30/22 23:13 36.4 C L 72 20 172/81 H 97 Room Air PG Care Time/CCT Total # of Minutes Spent Total Time Spent with Patient: Total time spent is greater than 50% in coordination of care (as documented) at patient's floor/unit and/or counseling patient: Coding Level of Care Code 41116 Subseq Hosp Care Lvl 2 Diagnoses Cellulitis, scrotum N49.2 Epididymoorchitis N45.3
--- NOTE | 2022-03-31 11:54 | Hospitalist Progress Note ---
Date of Service March 31, 2022 Assessment & Plan (1) Cellulitis, scrotum: Plan: 66-year-old male with PMH HTN, dyslipidemia, DM II, h/o perianal abscess presented to ER with complaint of scrotal erythema, edema and tenderness x 2 days. Patient noticed non-tender lump to distal left scrotum on 03/19/22. PCP f/u on 03/22/22 and was prescribed Bactrim. Took for 2 days. Denies fever/chills, vomiting, known trauma, penile discharge, urinary symptoms. +mild nausea. In ER afebrile, initial P: 115 down to 91, R: 18, BP 162/132 down to 161/80, 97% on room air. WBC: 17, lactate: WNL. Ultrasound scrotum: There is diffuse scrotal wall thickening consistent with the reported history of cellulitis. Question mild hyperemia of the right epididymis and both testes. Correlate clinically for evidence of epididymoorchitis. In ER given Zosyn, vancomycin, 500 mL NSS Blood cultures obtained after initial antibiotics given Scrotal cellulitis, possible epididymoorchitis Meets sepsis criteria with tachycardia, leucocytosis. procal 0.6 Finally improving after multiple days of broad IV antibiotics. No more fever or leucocytosis. Urine clx negative, blood clx negative, MRSA screen negative continue empiric IV ABx for now- Urology following- recommendations noted ID eval pending (2) Abnormal ultrasound: Plan: Scrotum US: A 3 mm indeterminant hypoechoic nodule is identified in the right testis. A small testicular neoplasm is not excluded. Nonemergent follow-up with urology is recommended, as is a precautionary 3-4 month follow-up scrotal ultrasound. Urology already following (3) Hyponatremia: Plan: resolved (4) Diabetes mellitus, type II: Plan: Glucose 273 A1c: 7.9 on 03/01/2022 On Trulicity every sunday Basal bolus insulin per protocol- adjust as indicated- adjusted today again (5) HTN (hypertension): Plan: Gets cough with lisinopril and hence discontinued. started on losartan instead. hold HCTZ for now. Cough improved (6) Hypokalemia: Plan: resolved Plan DVT ppx- sc lovenox Dispo- Continue iv antibiotics for scrotal cellulitis- monitor for improvement. Admission and Anticipated Discharge Date Admission Date: March 25, 2022 Subjective Feeling better. Still has scrotal pain and swelling. Diarrhea improved. No fever or chills. No N/V. No other issues. Physical Exam Physical Exam: General: Morbidly obese, sitting comfortably in bed, not in distress, on room air HEENT: EOMI, PERRL, MMM Chest: Clear breath sounds bilaterally, no wheezes or crackles CVS: regular, normal heart sounds, no murmur Abdomen: Soft, non tender, not distended, normal bowel sounds Neuro: Awake, alert, oriented, conversing well, non focal Extremities: No edema : scrotal cellulitis with erythema, tenderness and swelling noted- finally improving. Ecchymoses and skin sloughing over left scrotum. Results & Data Results & Data ([facility]) Vital Signs (Past 12 Hours) Vital Signs Temp Pulse Resp BP Pulse Ox O2 Del Method 03/31/22 08:23 36.7 C 70 19 164/92 H 97 Room Air Laboratory Results Short CBC 03/31/22 Range/Units 06:45 WBC 8.44 (4.8-10.8) K/ul Hgb 11.6 L (14.0-18.0) g/dl Hct 34.2 L (40.1-51.0) % Plt Count 323 (130-400) K/uL BMP 03/31/22 06:45 Sodium 137 Potassium 3.8 Chloride 103 Carbon Dioxide 28 BUN 12 Creatinine 0.77 Glucose 131 H Calcium 8.5 Medications Administered Current Inpatient Medications Acetaminophen (Acetaminophen 325 Mg Tab) 650 mg PO Q4H PRN PRN Reason: Pain or Fever Stop: 04/24/22 13:20 Last Admin: 03/30/22 22:49 Dose: 650 mg Aspirin (Aspirin 81 Mg Ectab) 81 mg PO DAILY RADHA Stop: 04/25/22 08:59 Last Admin: 03/31/22 08:45 Dose: 81 mg Benzonatate (Benzonatate 100 Mg Capsule) 200 mg PO TID RADHA Stop: 04/25/22 14:29 Last Admin: 03/31/22 08:51 Dose: 200 mg Dextrose (Dextrose 50% 50 Ml Syringe) 25 - 50 ml IV UD PRN; Protocol PRN Reason: Hypoglycemia Protocol Stop: 04/24/22 13:20 Enoxaparin Sodium (Enoxaparin Inj 40 Mg/0.4 Ml Syr) 40 mg SQ Q24H [facility] Stop: 04/24/22 15:59 Last Admin: 03/30/22 16:23 Dose: 40 mg Glucagon (Glucagon For Inj 1 Mg Vial) 1 mg SQ UD PRN; Protocol PRN Reason: Hypoglycemia Protocol Stop: 04/24/22 13:20 Glucose (Glucose 40% Gel 15 Gm Tube) 15 - 30 gm PO UD PRN; Protocol PRN Reason: Hypoglycemia Protocol Stop: 04/24/22 13:20 Glucose (Glucose 10 Tab/Tube) 4 - 8 tab PO UD PRN; Protocol PRN Reason: Hypoglycemia Treatment Stop: 04/24/22 13:20 Guaifenesin/Codeine Phosphate (Guaifenesin/Codeine 100mg/10mg 5ml Udc) 5 ml PO Q6H PRN PRN Reason: Cough Stop: 04/24/22 21:29 Last Admin: 03/27/22 19:51 Dose: 5 ml Piperacillin Sod/Tazobactam (Sod 4.5 gm/ Dextrose) 120 mls @ 30 mls/hr IV Q8H RADHA; Protocol Stop: 04/01/22 13:59 Last Infusion: 03/31/22 09:54 Dose: Infused Daptomycin 400 mg/ Syringe 8 mls @ 0 mls/min IV Q24H RADHA; Protocol Stop: 04/01/22 21:59 Last Admin: 03/30/22 21:12 Dose: 4 mls/min Insulin Aspart (Insulin Aspart Per Unit) 0 units SC ACHS [facility] Stop: 04/24/22 13:20 Last Admin: 03/31/22 08:45 Dose: 5 units Insulin Glargine (Lantus Per Unit Charge) 14 units SQ BID [facility] Stop: 04/29/22 20:59 Last Admin: 03/31/22 08:51 Dose: 14 units Losartan Potassium (Losartan Potassium 25 Mg Tab) 25 mg PO QAM [facility] Stop: 04/26/22 08:59 Last Admin: 03/31/22 08:45 Dose: 25 mg Miscellaneous (Carbohydrates For Hypoglycemia ) 15 - 30 gm PO UD PRN PRN Reason: Hypoglycemia Protocol Stop: 04/24/22 13:20 Chlorpheniramine: Non-Formulary Patient's Own Med 1 each PO Q6 [facility] Stop: 04/25/22 20:59 Last Admin: 08/26/22 05:47 Dose: 1 tab Nystatin (Nystatin Powder 15gm Btl) 1 appln EXT BID [facility] Stop: 04/24/22 13:20 Last Admin: 03/31/22 08:46 Dose: 1 appln Ondansetron HCl (Ondansetron Inj 2 Mg/Ml 2 Ml Vial) 4 mg IV Q6H PRN PRN Reason: Nausea Stop: 04/24/22 13:20 Last Admin: 03/27/22 15:09 Dose: 4 mg Polyethylene Glycol (Polyethylene (Miralax) 17 Gm Pack) 17 gm PO DAILY PRN PRN Reason: Constipation Stop: 04/24/22 13:20 Potassium Chloride (Potassium Chloride Crtab 20 Meq Tabcr) 40 meq PO DAILY RADHA Stop: 04/28/22 08:59 Last Admin: 03/31/22 08:44 Dose: 40 meq Raspberry (Raspberry Syrup 5 Ml Udp) 5 ml PO Q6 [facility] Stop: 04/08/22 11:59 Last Admin: 03/31/22 05:47 Dose: 5 ml Tramadol HCl (Tramadol Hcl 50 Mg Tablet) 50 mg PO Q6H PRN PRN Reason: Pain Stop: 04/26/22 05:45 Last Admin: 03/31/22 08:44 Dose: 50 mg Vancomycin HCl (Vancomycin Hcl 125 Mg/2.5ml Soln) 125 mg PO Q6 [facility] Stop: 04/08/22 11:59 Last Admin: 03/31/22 05:47 Dose: 125 mg
[2022-03-31] MEDS: ACETAMINOPHEN 325 MG TAB PO PRN ×2 (13:30→17:49)
[2022-03-31] MEDS: ENOXAPARIN INJ 40 MG/0.4 ML SYR SQ SCH (17:15)
[2022-03-31] MEDS: DAPTOmycin 400 MG in SYRINGE 0 ML IV SCH (21:54)
[2022-04-01] MEDS: ACETAMINOPHEN 325 MG TAB PO PRN ×3 (02:03→18:01)
[2022-04-01] MEDS: RASPBERRY SYRUP 5 ML UDP PO SCH ×5 (02:20→22:59)
[2022-04-01] MEDS: VANCOMYCIN HCL 125 MG/2.5ML SOLN PO SCH ×5 (02:20→22:59)
[2022-04-01] MEDS: CHLORPHENIRAMINE PO SCH ×5 (03:53→23:00)
[2022-04-01] MEDS: PIPERACILLIN/TAZOBACTAM 4.5 GM in DEXTROSE 5% 100 ML IV SCH ×2 (06:00→22:27)
[2022-04-01] MEDS: LOSARTAN POTASSIUM 25 MG TAB PO SCH (08:03)
[2022-04-01] MEDS: BENZONATATE 100 MG CAPSULE PO SCH ×2 (08:04→13:02)
[2022-04-01] MEDS: ASPIRIN 81 MG ECTAB PO SCH (08:04)
[2022-04-01] MEDS: POTASSIUM CHLORIDE CRTAB 20 MEQ TABCR PO SCH (08:04)
[2022-04-01] MEDS: NYSTATIN POWDER 15GM BTL EXT SCH ×2 (08:05→22:29)
[2022-04-01 08:24] LABS: Hematocrit (blood only) 34.7 % (40.1-51.0); Hemoglobin 11.4 g/dl (14.0-18.0); Mean Corpuscular Hemoglobin 31.1 pg (25.0-34.0); Mean Corpuscular Hgb Conc 32.9 g/dL (32.0-36.0); Mean Corpuscular Volume 94.6 fL (80.0-100.0); Mean Platelet Volume 9.7 fL (9.4-12.4); Platelet Count 348 K/uL (130-400); RDW Coefficient of Variation 12.1 % (11.5-14.5); RDW Standard Deviation 42.5 fL (36.4-46.3); Red Blood Count 3.67 M/uL (4.63-6.08); White Blood Count 9.41 K/ul (4.8-10.8)
[2022-04-01] MEDS: INSULIN ASPART PER UNIT SC SCH ×4 (08:30→22:43)
[2022-04-01] MEDS: LANTUS PER UNIT CHARGE SQ SCH ×2 (08:31→22:43)
--- NOTE | 2022-04-01 09:06 | Urology Progress Note ---
Date of Service April 01, 2022 Assessment & Plan (1) Cellulitis, scrotum: Plan: Gradual improvement of his scrotal cellulitisno signs of sepsis right now No palpable drainable abscesses or signs of progressive infection Continue antibiotics and supportive care for now If no further improvement by Sunday, likely repeat CT Admission and Anticipated Discharge Date Admission Date: March 25, 2022 Subjective Reports some subjective improvement Afebrile overnight Labs stable Voiding adequately Physical Exam Physical Exam: Erythema has decreased further but he has persistent induration and edema of the entire scrotal wall with an eschar forming on the left lateral aspect No palpable fluctuance No crepitus No drastic change on physical exam from yesterday to today Results & Data ([facility]) Vital Signs (Past 12 Hours) Vital Signs Temp Pulse Resp BP Pulse Ox O2 Del Method 04/01/22 08:00 36.5 C 68 20 167/83 H 97 Room Air 03/31/22 23:44 36.6 C 71 18 144/70 H 98 Room Air PG Care Time/CCT Total # of Minutes Spent Total Time Spent with Patient: Total time spent is greater than 50% in coordination of care (as documented) at patient's floor/unit and/or counseling patient: Coding Level of Care Code 02398 Subseq Hosp Care Lvl 2 Diagnoses Cellulitis, scrotum N49.2
--- NOTE | 2022-04-01 13:04 | Hospitalist Progress Note ---
Date of Service April 01, 2022 Assessment & Plan (1) Cellulitis, scrotum: Plan: 66-year-old male with PMH HTN, dyslipidemia, DM II, h/o perianal abscess presented to ER with complaint of scrotal erythema, edema and tenderness x 2 days. Patient noticed non-tender lump to distal left scrotum on 03/19/22. PCP f/u on 03/22/22 and was prescribed Bactrim. Took for 2 days. Denies fever/chills, vomiting, known trauma, penile discharge, urinary symptoms. +mild nausea. In ER afebrile, initial P: 115 down to 91, R: 18, BP 162/132 down to 161/80, 97% on room air. WBC: 17, lactate: WNL. Ultrasound scrotum: There is diffuse scrotal wall thickening consistent with the reported history of cellulitis. Question mild hyperemia of the right epididymis and both testes. Correlate clinically for evidence of epididymoorchitis. In ER given Zosyn, vancomycin, 500 mL NSS Blood cultures obtained after initial antibiotics given Scrotal cellulitis, possible epididymoorchitis Meets sepsis criteria with tachycardia, leucocytosis. procal 0.6 Finally improving after multiple days of broad IV antibiotics. No more fever or leucocytosis. Urine clx negative, blood clx negative, MRSA screen negative continue empiric IV ABx for now- dapto/zosyn Urology following- recommendations noted- plan for CT sunday if does not improve ID eval pending (2) Abnormal ultrasound: Plan: Scrotum US: A 3 mm indeterminant hypoechoic nodule is identified in the right testis. A small testicular neoplasm is not excluded. Nonemergent follow-up with urology is recommended, as is a precautionary 3-4 month follow-up scrotal ultrasound. Urology already following (3) Hyponatremia: Plan: resolved (4) Diabetes mellitus, type II: Plan: Glucose 273 A1c: 7.9 on 03/01/2022 On Trulicity every sunday Basal bolus insulin per protocol- adjust as indicated- adjusted today again (5) HTN (hypertension): Plan: Gets cough with lisinopril and hence discontinued. started on losartan instead. hold HCTZ for now. Cough resolved (6) Hypokalemia: Plan: resolved Plan DVT ppx- sc lovenox Dispo- Continue iv antibiotics for scrotal cellulitis- monitor for improvement. Plan for CT on Sunday if not improving. Admission and Anticipated Discharge Date Admission Date: March 25, 2022 Subjective Feels slightly better. Pain is improved, swelling and redness improved. diarrhea improved. No fever, chills, N/V. Physical Exam Physical Exam: General: Morbidly obese, sitting comfortably in bed, not in distress, on room air HEENT: EOMI, PERRL, MMM Chest: Clear breath sounds bilaterally, no wheezes or crackles CVS: regular, normal heart sounds, no murmur Abdomen: Soft, non tender, not distended, normal bowel sounds Neuro: Awake, alert, oriented, conversing well, non focal Extremities: No edema : scrotal cellulitis with erythema, tenderness and swelling noted- finally improving. Eschar developing over left scrotum. Results & Data Results & Data ([facility]) Vital Signs (Past 12 Hours) Vital Signs Temp Pulse Resp BP Pulse Ox O2 Del Method 04/01/22 08:00 Room Air 04/01/22 08:00 36.5 C 68 20 167/83 H 97 Room Air Medications Administered Current Inpatient Medications Acetaminophen (Acetaminophen 325 Mg Tab) 650 mg PO Q4H PRN PRN Reason: Pain or Fever Stop: 04/24/22 13:20 Last Admin: 04/01/22 11:06 Dose: 650 mg Aspirin (Aspirin 81 Mg Ectab) 81 mg PO DAILY RADHA Stop: 04/25/22 08:59 Last Admin: 04/01/22 08:04 Dose: 81 mg Benzonatate (Benzonatate 100 Mg Capsule) 200 mg PO TID RADHA Stop: 04/25/22 14:29 Last Admin: 04/01/22 13:02 Dose: Not Given Dextrose (Dextrose 50% 50 Ml Syringe) 25 - 50 ml IV UD PRN; Protocol PRN Reason: Hypoglycemia Protocol Stop: 04/24/22 13:20 Enoxaparin Sodium (Enoxaparin Inj 40 Mg/0.4 Ml Syr) 40 mg SQ Q24H RAD[facility] Stop: 04/24/22 15:59 Last Admin: 03/31/22 17:15 Dose: 40 mg Glucagon (Glucagon For Inj 1 Mg Vial) 1 mg SQ UD PRN; Protocol PRN Reason: Hypoglycemia Protocol Stop: 04/24/22 13:20 Glucose (Glucose 40% Gel 15 Gm Tube) 15 - 30 gm PO UD PRN; Protocol PRN Reason: Hypoglycemia Protocol Stop: 04/24/22 13:20 Glucose (Glucose 10 Tab/Tube) 4 - 8 tab PO UD PRN; Protocol PRN Reason: Hypoglycemia Treatment Stop: 04/24/22 13:20 Guaifenesin/Codeine Phosphate (Guaifenesin/Codeine 100mg/10mg 5ml Udc) 5 ml PO Q6H PRN PRN Reason: Cough Stop: 04/24/22 21:29 Last Admin: 03/27/22 19:51 Dose: 5 ml Piperacillin Sod/Tazobactam (Sod 4.5 gm/ Dextrose) 120 mls @ 30 mls/hr IV Q8H [facility]; Protocol Stop: 04/01/22 13:59 Last Infusion: 04/01/22 10:17 Dose: Infused Daptomycin 400 mg/ Syringe 8 mls @ 0 mls/min IV Q24H RAD[facility]; Protocol Stop: 04/01/22 21:59 Last Admin: 03/31/22 21:54 Dose: 1 mls/min Insulin Aspart (Insulin Aspart Per Unit) 0 units SC ACHS [facility] Stop: 04/24/22 13:20 Last Admin: 04/01/22 12:24 Dose: 9 units Insulin Glargine (Lantus Per Unit Charge) 14 units SQ BID [facility] Stop: 04/29/22 20:59 Last Admin: 04/01/22 08:31 Dose: 14 units Losartan Potassium (Losartan Potassium 25 Mg Tab) 25 mg PO QAM [facility] Stop: 04/26/22 08:59 Last Admin: 04/01/22 08:03 Dose: 25 mg Miscellaneous (Carbohydrates For Hypoglycemia ) 15 - 30 gm PO UD PRN PRN Reason: Hypoglycemia Protocol Stop: 04/24/22 13:20 Chlorpheniramine: Non-Formulary Patient's Own Med 1 each PO Q6 [facility] Stop: 04/25/22 20:59 Last Admin: 04/01/22 12:29 Dose: 1 tab Nystatin (Nystatin Powder 15gm Btl) 1 appln EXT BID [facility] Stop: 04/24/22 13:20 Last Admin: 04/01/22 08:05 Dose: 1 appln Ondansetron HCl (Ondansetron Inj 2 Mg/Ml 2 Ml Vial) 4 mg IV Q6H PRN PRN Reason: Nausea Stop: 04/24/22 13:20 Last Admin: 03/27/22 15:09 Dose: 4 mg Polyethylene Glycol (Polyethylene (Miralax) 17 Gm Pack) 17 gm PO DAILY PRN PRN Reason: Constipation Stop: 04/24/22 13:20 Potassium Chloride (Potassium Chloride Crtab 20 Meq Tabcr) 40 meq PO DAILY RADHA Stop: 04/28/22 08:59 Last Admin: 04/01/22 08:04 Dose: 40 meq Raspberry (Raspberry Syrup 5 Ml Udp) 5 ml PO Q6 [facility] Stop: 04/08/22 11:59 Last Admin: 04/01/22 12:29 Dose: 5 ml Tramadol HCl (Tramadol Hcl 50 Mg Tablet) 50 mg PO Q6H PRN PRN Reason: Pain Stop: 04/26/22 05:45 Last Admin: 03/31/22 08:44 Dose: 50 mg Vancomycin HCl (Vancomycin Hcl 125 Mg/2.5ml Soln) 125 mg PO Q6 [facility] Stop: 04/08/22 11:59 Last Admin: 04/01/22 12:29 Dose: 125 mg
[2022-04-01] MEDS ORDERED: BENZONATATE 100 MG CAPSULE PO PRN (13:27)
[2022-04-01] MEDS: traMADol HCL 50 MG TABLET PO PRN ×2 (13:59→19:45)
[2022-04-01] MEDS: ENOXAPARIN INJ 40 MG/0.4 ML SYR SQ SCH (17:13)
[2022-04-01] MEDS: DAPTOmycin 400 MG in SYRINGE 0 ML IV SCH (22:59)
[2022-04-02] MEDS: traMADol HCL 50 MG TABLET PO PRN ×2 (03:27→10:56)
[2022-04-02] MEDS: PIPERACILLIN/TAZOBACTAM 4.5 GM in DEXTROSE 5% 100 ML IV SCH ×3 (03:28→20:36)
[2022-04-02] MEDS: RASPBERRY SYRUP 5 ML UDP PO SCH ×4 (05:56→23:03)
[2022-04-02] MEDS: VANCOMYCIN HCL 125 MG/2.5ML SOLN PO SCH ×4 (05:56→23:03)
[2022-04-02] MEDS: ACETAMINOPHEN 325 MG TAB PO PRN ×3 (06:00→20:55)
[2022-04-02] MEDS: CHLORPHENIRAMINE PO SCH ×4 (06:00→23:04)
[2022-04-02] MEDS: ASPIRIN 81 MG ECTAB PO SCH (07:52)
[2022-04-02] MEDS: POTASSIUM CHLORIDE CRTAB 20 MEQ TABCR PO SCH (07:52)
[2022-04-02] MEDS: LOSARTAN POTASSIUM 25 MG TAB PO SCH (07:53)
[2022-04-02] MEDS: NYSTATIN POWDER 15GM BTL EXT SCH ×2 (07:54→20:38)
[2022-04-02] MEDS: INSULIN ASPART PER UNIT SC SCH ×4 (09:08→20:36)
[2022-04-02] MEDS: LANTUS PER UNIT CHARGE SQ SCH ×2 (09:16→20:37)
--- NOTE | 2022-04-02 09:28 | Urology Progress Note ---
Date of Service April 02, 2022 Assessment & Plan (1) Cellulitis, scrotum: Plan: Overall, he is showing clinical improvement, however, I wonder if he is entering into an abscess underneath the developing left-sided eschar This does not seem to have a small amount of fluctuance I would like to obtain repeat imagingif a drainable abscess, we can consider drainage early next week - possibly on Sunday CT to be ordered for tomorrow morning Admission and Anticipated Discharge Date Admission Date: March 25, 2022 Subjective Subjectively continues to improve He has had some drainage from the left hemiscrotum He has not had fevers or chills and he feels relatively well overall Physical Exam Physical Exam: Continued progression and improvement overall Less erythema, less edema, 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 His left-sided eschar is maturing, however I suspect there may be some fluctuance beneath it implying that he may be maturing into an abscess which may be drainable Results & Data ([facility]) Vital Signs (Past 12 Hours) Vital Signs Temp Pulse Resp BP BP Pulse Ox O2 Del Method 04/02/22 08:07 36.8 C 72 20 147/84 H 96 Room Air 04/01/22 23:04 36.8 C 76 18 158/90 H 97 Room Air PG Care Time/CCT Total # of Minutes Spent Total Time Spent with Patient: Total time spent is greater than 50% in coordination of care (as documented) at patient's floor/unit and/or counseling patient: Coding Level of Care Code 81971 Subseq Hosp Care Lvl 2 Diagnoses Cellulitis, scrotum N49.2
--- NOTE | 2022-04-02 10:57 | Hospitalist Progress Note ---
Date of Service April 02, 2022 Assessment & Plan (1) Cellulitis, scrotum: Plan: 66-year-old male with PMH HTN, dyslipidemia, DM II, h/o perianal abscess presented to ER with complaint of scrotal erythema, edema and tenderness x 2 days. Patient noticed non-tender lump to distal left scrotum on 03/19/22. PCP f/u on 03/22/22 and was prescribed Bactrim. Took for 2 days. Denies fever/chills, vomiting, known trauma, penile discharge, urinary symptoms. +mild nausea. In ER afebrile, initial P: 115 down to 91, R: 18, BP 162/132 down to 161/80, 97% on room air. WBC: 17, lactate: WNL. Ultrasound scrotum: There is diffuse scrotal wall thickening consistent with the reported history of cellulitis. Question mild hyperemia of the right epididymis and both testes. Correlate clinically for evidence of epididymoorchitis. In ER given Zosyn, vancomycin, 500 mL NSS Blood cultures obtained after initial antibiotics given Scrotal cellulitis, possible epididymoorchitis Sepsis on admission-resolved Met sepsis criteria on admission with tachycardia, leucocytosis. procal 0.6 Finally improving after multiple days of broad IV antibiotics. No more fever or leucocytosis. Urine clx negative, blood clx negative, MRSA screen negative continue empiric IV ABx for now- dapto/zosyn Urology following- recommendations noted- plan for CT tomorrow to look for underlying abscess, if so- drainage on Sunday. ID eval pending (2) Abnormal ultrasound: Plan: Scrotum US: A 3 mm indeterminant hypoechoic nodule is identified in the right testis. A small testicular neoplasm is not excluded. Nonemergent follow-up with urology is recommended, as is a precautionary 3-4 month follow-up scrotal ultrasound. Urology already following (3) Hyponatremia: Plan: resolved (4) Diabetes mellitus, type II: Plan: A1c: 7.9 on 03/01/2022 On Trulicity every sunday at home BG well controlled on current basal bolus regimen- will continue- adjust as indicated (5) HTN (hypertension): Plan: Gets cough with lisinopril and hence discontinued. started on losartan instead- BP still elevated- will increase losartan dose. hold HCTZ for now. Cough resolved Plan DVT ppx- sc lovenox Dispo- Continue iv antibiotics for scrotal cellulitis- monitor for improvement. Plan for CT pelvis tomorrow per urology Admission and Anticipated Discharge Date Admission Date: March 25, 2022 Subjective Feels good. Still has bouts of sharp pain in his scrotum. Overall pain and swelling improved from admission. no fever, chills, N/V/abd pain. Having regular BM. Voiding without issues. Physical Exam Physical Exam: General: Morbidly obese, sitting comfortably in bed, not in distress, on room air HEENT: EOMI, PERRL, MMM Chest: Clear breath sounds bilaterally, no wheezes or crackles CVS: regular, normal heart sounds, no murmur Abdomen: Soft, non tender, not distended, normal bowel sounds Neuro: Awake, alert, oriented, conversing well, non focal Extremities: No edema : scrotal cellulitis with erythema, tenderness and swelling noted- finally improving. Eschar developing over left scrotum. Results & Data Results & Data ([facility]) Vital Signs (Past 12 Hours) Vital Signs Temp Pulse Resp BP BP Pulse Ox O2 Del Method 04/02/22 08:07 36.8 C 72 20 147/84 H 96 Room Air 04/01/22 23:04 36.8 C 76 18 158/90 H 97 Room Air Medications Administered Current Inpatient Medications Acetaminophen (Acetaminophen 325 Mg Tab) 650 mg PO Q4H PRN PRN Reason: Pain or Fever Stop: 04/24/22 13:20 Last Admin: 04/02/22 06:00 Dose: 650 mg Aspirin (Aspirin 81 Mg Ectab) 81 mg PO DAILY [facility] Stop: 04/25/22 08:59 Last Admin: 04/02/22 07:52 Dose: 81 mg Benzonatate (Benzonatate 100 Mg Capsule) 200 mg PO TID PRN PRN Reason: Cough Stop: 04/25/22 14:29 Dextrose (Dextrose 50% 50 Ml Syringe) 25 - 50 ml IV UD PRN; Protocol PRN Reason: Hypoglycemia Protocol Stop: 04/24/22 13:20 Enoxaparin Sodium (Enoxaparin Inj 40 Mg/0.4 Ml Syr) 40 mg SQ Q24H [facility] Stop: 04/24/22 15:59 Last Admin: 04/01/22 17:13 Dose: 40 mg Glucagon (Glucagon For Inj 1 Mg Vial) 1 mg SQ UD PRN; Protocol PRN Reason: Hypoglycemia Protocol Stop: 04/24/22 13:20 Glucose (Glucose 40% Gel 15 Gm Tube) 15 - 30 gm PO UD PRN; Protocol PRN Reason: Hypoglycemia Protocol Stop: 04/24/22 13:20 Glucose (Glucose 10 Tab/Tube) 4 - 8 tab PO UD PRN; Protocol PRN Reason: Hypoglycemia Treatment Stop: 04/24/22 13:20 Guaifenesin/Codeine Phosphate (Guaifenesin/Codeine 100mg/10mg 5ml Udc) 5 ml PO Q6H PRN PRN Reason: Cough Stop: 04/24/22 21:29 Last Admin: 03/27/22 19:51 Dose: 5 ml Daptomycin 400 mg/ Syringe 8 mls @ 0 mls/min IV Q24H [facility]; Protocol Stop: 04/04/22 21:59 Last Admin: 04/01/22 22:59 Dose: 4 mls/min Piperacillin Sod/Tazobactam (Sod 4.5 gm/ Dextrose) 120 mls @ 30 mls/hr IV Q8H [facility]; Protocol Stop: 04/08/22 20:29 Last Infusion: 04/02/22 07:45 Dose: Infused Insulin Aspart (Insulin Aspart Per Unit) 0 units SC ACHS [facility] Stop: 04/24/22 13:20 Last Admin: 04/02/22 09:08 Dose: 13 units Insulin Glargine (Lantus Per Unit Charge) 14 units SQ BID [facility] Stop: 04/29/22 20:59 Last Admin: 04/02/22 09:16 Dose: 14 units Losartan Potassium (Losartan Potassium 25 Mg Tab) 25 mg PO QAM [facility] Stop: 04/26/22 08:59 Last Admin: 04/02/22 07:53 Dose: 25 mg Miscellaneous (Carbohydrates For Hypoglycemia ) 15 - 30 gm PO UD PRN PRN Reason: Hypoglycemia Protocol Stop: 04/24/22 13:20 Chlorpheniramine: Non-Formulary Patient's Own Med 1 each PO Q6 [facility] Stop: 04/25/22 20:59 Last Admin: 04/02/22 06:00 Dose: 1 tab Nystatin (Nystatin Powder 15gm Btl) 1 appln EXT BID [facility] Stop: 04/24/22 13:20 Last Admin: 04/02/22 07:54 Dose: 1 appln Ondansetron HCl (Ondansetron Inj 2 Mg/Ml 2 Ml Vial) 4 mg IV Q6H PRN PRN Reason: Nausea Stop: 04/24/22 13:20 Last Admin: 03/27/22 15:09 Dose: 4 mg Polyethylene Glycol (Polyethylene (Miralax) 17 Gm Pack) 17 gm PO DAILY PRN PRN Reason: Constipation Stop: 04/24/22 13:20 Potassium Chloride (Potassium Chloride Crtab 20 Meq Tabcr) 40 meq PO DAILY [facility] Stop: 04/28/22 08:59 Last Admin: 04/02/22 07:52 Dose: 40 meq Raspberry (Raspberry Syrup 5 Ml Udp) 5 ml PO Q6 [facility] Stop: 04/08/22 11:59 Last Admin: 04/02/22 05:56 Dose: 5 ml Tramadol HCl (Tramadol Hcl 50 Mg Tablet) 50 mg PO Q6H PRN PRN Reason: Pain Stop: 04/26/22 05:45 Last Admin: 04/02/22 03:27 Dose: 50 mg Vancomycin HCl (Vancomycin Hcl 125 Mg/2.5ml Soln) 125 mg PO Q6 [facility] Stop: 04/08/22 11:59 Last Admin: 04/02/22 05:56 Dose: 125 mg
[2022-04-02] MEDS: ENOXAPARIN INJ 40 MG/0.4 ML SYR SQ SCH (16:02)
[2022-04-02] MEDS: DAPTOmycin 400 MG in SYRINGE 0 ML IV SCH (23:02)
[2022-04-03] MEDS: traMADol HCL 50 MG TABLET PO PRN ×2 (00:51→08:35)
[2022-04-03] MEDS: PIPERACILLIN/TAZOBACTAM 4.5 GM in DEXTROSE 5% 100 ML IV SCH ×3 (05:07→20:05)
[2022-04-03] MEDS: ACETAMINOPHEN 325 MG TAB PO PRN ×2 (05:07→12:34)
[2022-04-03] MEDS: RASPBERRY SYRUP 5 ML UDP PO SCH ×4 (05:07→23:01)
[2022-04-03] MEDS: VANCOMYCIN HCL 125 MG/2.5ML SOLN PO SCH ×4 (05:08→23:01)
[2022-04-03] MEDS: CHLORPHENIRAMINE PO SCH ×3 (05:09→17:30)
[2022-04-03 06:27] LABS: Hematocrit (blood only) 36.1 % (40.1-51.0); Mean Corpuscular Hemoglobin 31.3 pg (25.0-34.0); Mean Corpuscular Hgb Conc 33.2 g/dL (32.0-36.0); Mean Platelet Volume 9.3 fL (9.4-12.4); Platelet Count 321 K/uL (130-400); RDW Standard Deviation 41.7 fL (36.4-46.3); Red Blood Count 3.84 M/uL (4.63-6.08); White Blood Count 10.08 K/ul (4.8-10.8)
[2022-04-03 07:01] LABS: BUN Creatinine Ratio 14.1 (10-20); Calcium 8.9 mg/dl (8.5-10.1); Creatinine Clr Calc Pharmacy 132.4 ml/min; Est GFR (African American) 110.6 ml/min; Est GFR (Non-African American) 95.4 ml/min; Potassium 4.3 mmol/L (3.5-5.1)
[2022-04-03] MEDS: LOSARTAN POTASSIUM 50 MG TAB PO SCH (07:50)
[2022-04-03] MEDS: ASPIRIN 81 MG ECTAB PO SCH (07:50)
[2022-04-03] MEDS: POTASSIUM CHLORIDE CRTAB 20 MEQ TABCR PO SCH (07:50)
[2022-04-03] MEDS: LANTUS PER UNIT CHARGE SQ SCH ×2 (07:51→22:15)
[2022-04-03] MEDS: NYSTATIN POWDER 15GM BTL EXT SCH ×2 (07:51→20:05)
[2022-04-03] MEDS: INSULIN ASPART PER UNIT SC SCH ×4 (07:52→22:16)
--- NOTE | 2022-04-03 10:28 | CT Scan Report ---
CT pelvis wo con HISTORY: Scrotal swelling. scrotal abscess? please scan through scrotum TECHNIQUE: Multiaxial CT images of the pelvis are performed without the use of intravenous contrast. Sagittal coronal reformations were performed at the workstation by the radiologist. COMPARISON STUDY: Abdomen and pelvis CT 01/02/2018. FINDINGS: Small fat-containing left inguinal hernia. Mild bilateral inguinal lymphadenopathy which ma y be reactive. There is subcutaneous edema/fat stranding at the base of the penis. There is extensive diffuse scrotal thickening/edema most pronounced on the left. A loculated fluid collection/abscess w ith be difficult to exclude on this noncontrast study but is not clearly identified. Therefore, follo w-up ultrasound recommended to exclude the possibility of underlying abscess. No subcutaneous gas carlos ntified in the scrotum. There is also mild bilateral external iliac lymphadenopathy. The visualized l oops of bowel show no wall thickening or obstruction. Normal appendix. Colonic diverticulosis. No humberto dence for acute diverticulitis. The prostate gland is normal in size. The bladder is unremarkable. Ti ny fat-containing umbilical hernia. No pelvic free fluid. Degenerative changes within the lumbar spin e. No fractures identified within the pelvis. Trace bilateral hydroceles are noted. IMPRESSION: There is extensive diffuse scrotal thickening/edema most pronounced on the left. A loculated fluid co llection/abscess with be difficult to exclude on this noncontrast study but is not clearly identified . Therefore, follow-up ultrasound can be performed to exclude the possibility of underlying abscess. ACT 112: Negative or not required by law. Electronically signed by: Chino Fuentes M.D. 04/03/2022 10:26 AM
--- NOTE | 2022-04-03 10:43 | Urology Progress Note ---
Date of Service April 03, 2022 Assessment & Plan (1) Epididymoorchitis: (2) Cellulitis, scrotum: Plan: Epididymitis/cellulitis- seems to be improving gradually with antibiotics. Remains afebrile and hemodynamically stable. Leukocytosis improved. Urine and blood cultures negative. CT pelvis this AM for evaluation of possible fluid collection/abscess for drainage. Reviewed imaging with Dr. Musa - diffuse scrotal thickening/edema, no dr megan fluid collection. Continue with antibiotics, supportive care. Discussed gradual recovery. Urology will follow. Admission and Anticipated Discharge Date Admission Date: March 25, 2022 Subjective Patient seen and examined at bedside this AM. Awake, alert and sitting up in bed, appears comfortable. Remains afebrile. Subjectively doing well, notes slow improvement. Reports scrotal discomfort, currently rated 1/10, but worse after going to the bathroom. Notes drainage from left hemiscrotum. He is voiding without difficulty. No nausea or vomiting. No fever or chills. Offers no additional complaints. Review of Systems Constitutional: as per Subjective / HPI Gastrointestinal: as per Subjective / HPI Genitourinary: + as per Subjective / HPI Physical Exam Constitutional: + obese; no acute distress Respiratory: no respiratory distress and no labored breathing Gastrointestinal (Abdomen): Inspection/Auscultation: abdomen not distended Neurologic: moves all extremities and awake Psychiatric: Orientation: alert and oriented x 3 Genitourinary: Erythema, induration and edema of the entire scrotal wall with an eschar forming on the left lateral aspect, possible fluctuance developing under eschar. Tender to palpation. No crepitus noted. Results & Data ([facility]) Vital Signs (Past 12 Hours) Vital Signs Temp Pulse Resp BP Pulse Ox O2 Del Method 04/03/22 08:00 36.3 C L 65 20 150/81 H 95 Room Air PG Care Time/CCT Total # of Minutes Spent Total Time Spent with Patient: Total time spent is greater than 50% in coordination of care (as documented) at patient's floor/unit and/or counseling patient: Coding Level of Care Code 69809 Subseq Hosp Care Lvl 2 Diagnoses Epididymoorchitis N45.3 Cellulitis, scrotum N49.2
--- NOTE | 2022-04-03 17:10 | Hospitalist Progress Note ---
Date of Service April 03, 2022 Assessment & Plan (1) Cellulitis, scrotum: Plan: 66-year-old male with PMH HTN, dyslipidemia, DM II, h/o perianal abscess presented to ER with complaint of scrotal erythema, edema and tenderness x 2 days. Patient noticed non-tender lump to distal left scrotum on 03/19/22. PCP f/u on 03/22/22 and was prescribed Bactrim. Took for 2 days. Denies fever/chills, vomiting, known trauma, penile discharge, urinary symptoms. +mild nausea. In ER afebrile, initial P: 115 down to 91, R: 18, BP 162/132 down to 161/80, 97% on room air. WBC: 17, lactate: WNL. Ultrasound scrotum: There is diffuse scrotal wall thickening consistent with the reported history of cellulitis. Question mild hyperemia of the right epididymis and both testes. Correlate clinically for evidence of epididymoorchitis. In ER given Zosyn, vancomycin, 500 mL NSS Blood cultures obtained after initial antibiotics given Scrotal cellulitis, possible epididymoorchitis Sepsis on admission-resolved Met sepsis criteria on admission with tachycardia, leucocytosis. procal 0.6 Finally improving after multiple days of broad IV antibiotics. No more fever or leucocytosis. Urine clx negative, blood clx negative, MRSA screen negative S/p empiric IV ABx for now->transition to levaquin if QTc allows. Per ID, continue levaquin 750 mg oral daily through 04/09 and continue oral vanc q6hr until 04/12. Urology following- recommendations noted- CT noted but without contrast and unable to exclude abscess- defer to uro for further management. (2) Abnormal ultrasound: Plan: Scrotum US: A 3 mm indeterminant hypoechoic nodule is identified in the right testis. A small testicular neoplasm is not excluded. Nonemergent follow-up with urology is recommended, as is a precautionary 3-4 month follow-up scrotal ultrasound. Urology already following (3) Hyponatremia: Plan: resolved (4) Diabetes mellitus, type II: Plan: A1c: 7.9 on 03/01/2022 On Trulicity every sunday at home BG well controlled on current basal bolus regimen- will continue- adjust as indicated (5) HTN (hypertension): Plan: Gets cough with lisinopril and hence discontinued. started on losartan instead- BP still elevated- will increase losartan dose. hold HCTZ for now. Cough resolved Plan DVT ppx- sc lovenox Dispo- Pending uro reeval in am for possible drainage. Admission and Anticipated Discharge Date Admission Date: March 25, 2022 Subjective No new issues. Pain and swelling slightly improving. No fever, chills, CP, SOB. Regular BM. Physical Exam Physical Exam: General: Morbidly obese, sitting comfortably in bed, not in distress, on room air HEENT: EOMI, PERRL, MMM Chest: Clear breath sounds bilaterally, no wheezes or crackles CVS: regular, normal heart sounds, no murmur Abdomen: Soft, non tender, not distended, normal bowel sounds Neuro: Awake, alert, oriented, conversing well, non focal Extremities: No edema : scrotal cellulitis with erythema, tenderness and swelling noted- finally improving. Eschar developing over left scrotum. Results & Data Results & Data ([facility]) Vital Signs (Past 12 Hours) Vital Signs Temp Pulse Resp BP Pulse Ox O2 Del Method 04/03/22 15:41 36.8 C 80 18 138/80 95 Room Air 04/03/22 08:00 36.3 C L 65 20 150/81 H 95 Room Air Laboratory Results Short CBC 04/03/22 Range/Units 06:00 WBC 10.08 (4.8-10.8) K/ul Hgb 12.0 L (14.0-18.0) g/dl Hct 36.1 L (40.1-51.0) % Plt Count 321 (130-400) K/uL BMP 04/03/22 06:00 Sodium 136 Potassium 4.3 Chloride 103 Carbon Dioxide 26 BUN 11 Creatinine 0.78 Glucose 127 H Calcium 8.9 Medications Administered Current Inpatient Medications Acetaminophen (Acetaminophen 325 Mg Tab) 650 mg PO Q4H PRN PRN Reason: Pain or Fever Stop: 04/24/22 13:20 Last Admin: 04/03/22 12:34 Dose: 650 mg Aspirin (Aspirin 81 Mg Ectab) 81 mg PO DAILY RADHA Stop: 04/25/22 08:59 Last Admin: 04/03/22 07:50 Dose: 81 mg Benzonatate (Benzonatate 100 Mg Capsule) 200 mg PO TID PRN PRN Reason: Cough Stop: 04/25/22 14:29 Dextrose (Dextrose 50% 50 Ml Syringe) 25 - 50 ml IV UD PRN; Protocol PRN Reason: Hypoglycemia Protocol Stop: 04/24/22 13:20 Enoxaparin Sodium (Enoxaparin Inj 40 Mg/0.4 Ml Syr) 40 mg SQ Q24H RADHA Stop: 04/24/22 15:59 Last Admin: 04/02/22 16:02 Dose: 40 mg Glucagon (Glucagon For Inj 1 Mg Vial) 1 mg SQ UD PRN; Protocol PRN Reason: Hypoglycemia Protocol Stop: 04/24/22 13:20 Glucose (Glucose 40% Gel 15 Gm Tube) 15 - 30 gm PO UD PRN; Protocol PRN Reason: Hypoglycemia Protocol Stop: 04/24/22 13:20 Glucose (Glucose 10 Tab/Tube) 4 - 8 tab PO UD PRN; Protocol PRN Reason: Hypoglycemia Treatment Stop: 04/24/22 13:20 Guaifenesin/Codeine Phosphate (Guaifenesin/Codeine 100mg/10mg 5ml Udc) 5 ml PO Q6H PRN PRN Reason: Cough Stop: 04/24/22 21:29 Last Admin: 03/27/22 19:51 Dose: 5 ml Daptomycin 400 mg/ Syringe 8 mls @ 0 mls/min IV Q24H RADHA; Protocol Stop: 04/08/22 23:59 Last Admin: 04/02/22 23:02 Dose: 4 mls/min Piperacillin Sod/Tazobactam (Sod 4.5 gm/ Dextrose) 120 mls @ 30 mls/hr IV Q8H RADHA; Protocol Stop: 04/08/22 23:59 Last Admin: 04/03/22 12:20 Dose: 30 mls/hr Insulin Aspart (Insulin Aspart Per Unit) 0 units SC ACHS RADHA Stop: 04/24/22 13:20 Last Admin: 04/03/22 12:19 Dose: 6 units Insulin Glargine (Lantus Per Unit Charge) 14 units SQ BID RADHA Stop: 04/29/22 20:59 Last Admin: 04/03/22 07:51 Dose: 14 units Losartan Potassium (Losartan Potassium 50 Mg Tab) 50 mg PO QAM RADHA Stop: 05/03/22 08:59 Last Admin: 04/03/22 07:50 Dose: 50 mg Miscellaneous (Carbohydrates For Hypoglycemia ) 15 - 30 gm PO UD PRN PRN Reason: Hypoglycemia Protocol Stop: 04/24/22 13:20 Chlorpheniramine: Non-Formulary Patient's Own Med 1 each PO Q6 RADHA Stop: 04/25/22 20:59 Last Admin: 04/03/22 12:21 Dose: 1 tab Nystatin (Nystatin Powder 15gm Btl) 1 appln EXT BID RADHA Stop: 04/24/22 13:20 Last Admin: 04/03/22 07:51 Dose: 1 appln Ondansetron HCl (Ondansetron Inj 2 Mg/Ml 2 Ml Vial) 4 mg IV Q6H PRN PRN Reason: Nausea Stop: 04/24/22 13:20 Last Admin: 03/27/22 15:09 Dose: 4 mg Polyethylene Glycol (Polyethylene (Miralax) 17 Gm Pack) 17 gm PO DAILY PRN PRN Reason: Constipation Stop: 04/24/22 13:20 Potassium Chloride (Potassium Chloride Crtab 20 Meq Tabcr) 40 meq PO DAILY RADHA Stop: 04/28/22 08:59 Last Admin: 04/03/22 07:50 Dose: 40 meq Raspberry (Raspberry Syrup 5 Ml Udp) 5 ml PO Q6 RADHA Stop: 04/08/22 11:59 Last Admin: 04/03/22 12:21 Dose: 5 ml Tramadol HCl (Tramadol Hcl 50 Mg Tablet) 50 mg PO Q6H PRN PRN Reason: Pain Stop: 04/26/22 05:45 Last Admin: 04/03/22 08:35 Dose: 50 mg Vancomycin HCl (Vancomycin Hcl 125 Mg/2.5ml Soln) 125 mg PO Q6 RADHA Stop: 04/08/22 11:59 Last Admin: 04/03/22 12:24 Dose: 125 mg
[2022-04-03] MEDS: ENOXAPARIN INJ 40 MG/0.4 ML SYR SQ SCH (17:30)
[2022-04-03] MEDS: DAPTOmycin 400 MG in SYRINGE 0 ML IV SCH (23:01)
[2022-04-04] MEDS: traMADol HCL 50 MG TABLET PO PRN (00:58)
[2022-04-04] MEDS: CHLORPHENIRAMINE PO SCH ×4 (00:59→17:14)
[2022-04-04] MEDS: PIPERACILLIN/TAZOBACTAM 4.5 GM in DEXTROSE 5% 100 ML IV SCH (05:14)
[2022-04-04] MEDS: RASPBERRY SYRUP 5 ML UDP PO SCH ×3 (05:14→17:14)
[2022-04-04] MEDS: VANCOMYCIN HCL 125 MG/2.5ML SOLN PO SCH ×3 (05:14→17:14)
[2022-04-04] MEDS: NYSTATIN POWDER 15GM BTL EXT SCH ×2 (08:18→21:33)
[2022-04-04] MEDS: LOSARTAN POTASSIUM 50 MG TAB PO SCH (08:18)
[2022-04-04] MEDS: ASPIRIN 81 MG ECTAB PO SCH (08:18)
[2022-04-04] MEDS: POTASSIUM CHLORIDE CRTAB 20 MEQ TABCR PO SCH (08:18)
[2022-04-04] MEDS: INSULIN ASPART PER UNIT SC SCH ×4 (08:19→21:35)
[2022-04-04] MEDS: LANTUS PER UNIT CHARGE SQ SCH ×2 (08:19→21:35)
--- NOTE | 2022-04-04 09:06 | Urology Progress Note ---
Date of Service April 04, 2022 Assessment & Plan (1) Epididymoorchitis: (2) Cellulitis, scrotum: Plan Continues to improve At this stage is still not certain that he will benefit from debridement or I&D Continue antibiotics and supportive care Will closely follow Admission and Anticipated Discharge Date Admission Date: March 25, 2022 Subjective Subjectively feels that he is continuing to improve Easier time urinating Some drainage from the left portion of the scrotum No fevers or chills CT performed yesterday was reviewed and discussedno defined, drainable abscess Physical Exam Physical Exam: Overall edema of the scrotum continues to improve No erythema of the majority of the skin He has an eschar over the left dependent portion of the scrotum with some sloughing at the most dependent portion and drainage of some purulent material diffusely from this area No palpable drainable abscess that I can appreciate no crepitus Results & Data ([facility]) Vital Signs (Past 12 Hours) Vital Signs Temp Pulse Resp BP BP Pulse Ox O2 Del Method 04/04/22 07:33 36.8 C 67 18 137/51 L 96 Room Air 04/04/22 04:27 36.8 C 74 18 133/72 97 Room Air 04/03/22 23:58 36.5 C 81 20 173/77 H 94 Room Air PG Care Time/CCT Total # of Minutes Spent Total Time Spent with Patient: Total time spent is greater than 50% in coordination of care (as documented) at patient's floor/unit and/or counseling patient: Coding Level of Care Code 99301 Subseq Hosp Care Lvl 3 Diagnoses Epididymoorchitis N45.3 Cellulitis, scrotum N49.2
[2022-04-04] MEDS: ACETAMINOPHEN 325 MG TAB PO PRN ×2 (09:44→15:41)
--- NOTE | 2022-04-04 11:50 | Hospitalist Progress Note ---
Date of Service April 04, 2022 Assessment & Plan (1) Cellulitis, scrotum: Plan: 66-year-old male with PMH HTN, dyslipidemia, DM II, h/o perianal abscess presented to ER with complaint of scrotal erythema, edema and tenderness x 2 days. Patient noticed non-tender lump to distal left scrotum on 03/19/22. PCP f/u on 03/22/22 and was prescribed Bactrim. Took for 2 days. Denies fever/chills, vomiting, known trauma, penile discharge, urinary symptoms. +mild nausea. In ER afebrile, initial P: 115 down to 91, R: 18, BP 162/132 down to 161/80, 97% on room air. WBC: 17, lactate: WNL. Ultrasound scrotum: There is diffuse scrotal wall thickening consistent with the reported history of cellulitis. Question mild hyperemia of the right epididymis and both testes. Correlate clinically for evidence of epididymoorchitis. In ER given Zosyn, vancomycin, 500 mL NSS Blood cultures obtained after initial antibiotics given Scrotal cellulitis, possible epididymoorchitis Sepsis on admission-resolved Met sepsis criteria on admission with tachycardia, leucocytosis. procal 0.6 Finally improving after multiple days of broad IV antibiotics. No more fever or leucocytosis. Urine clx negative, blood clx negative, MRSA screen negative S/p empiric IV ABx for now->transition to levaquin if QTc allows. Per ID, continue levaquin 750 mg oral daily through 04/09 and continue oral vanc q6hr until 04/12. Qtc is 495; reached out to ID if there are any other alternatives. Recommended Bacrim DS and amox/Clav 875mg twice daily. Urology following- recommendations noted- CT noted but without contrast and unable to exclude abscess. Recommend to closely follow, continue antibiotics and supportive care. (2) Abnormal ultrasound: Plan: Scrotum US: A 3 mm indeterminant hypoechoic nodule is identified in the right testis. A small testicular neoplasm is not excluded. Nonemergent follow-up with urology is recommended, as is a precautionary 3-4 month follow-up scrotal ultrasound. Urology already following (3) Hyponatremia: Plan: resolved (4) Diabetes mellitus, type II: Plan: A1c: 7.9 on 03/01/2022 On Trulicity every sunday at home BG well controlled on current basal bolus regimen- will continue- adjust as indicated (5) HTN (hypertension): Plan: Gets cough with lisinopril and hence discontinued. started on losartan instead- BP still elevated- will increase losartan dose. hold HCTZ for now. Cough resolved Plan DVT ppx- sc lovenox Dispo- Recommend to closely follow for now. Admission and Anticipated Discharge Date Admission Date: March 25, 2022 Subjective Says the swelling and pain has decreased overall. He denies any fever or chills. Able to urinate without any difficulty. Review of Systems Review of Systems: All systems reviewed & are unremarkable except as noted in Subjective Physical Exam Physical Exam: General: Morbidly obese, sitting comfortably in bed, not in distress, on room air HEENT: EOMI, PERRL, MMM Chest: Clear breath sounds bilaterally, no wheezes or crackles CVS: regular, normal heart sounds, no murmur Abdomen: Soft, non tender, not distended, normal bowel sounds Neuro: Awake, alert, oriented, conversing well, non focal Extremities: No edema : scrotal cellulitis with erythema, tenderness and swelling noted. Black eschar present on scrotum on left side. Results & Data Results & Data ([facility]) Vital Signs (Past 12 Hours) Vital Signs Temp Pulse Resp BP BP Pulse Ox O2 Del Method 04/04/22 07:33 36.8 C 67 18 137/51 L 96 Room Air 04/04/22 04:27 36.8 C 74 18 133/72 97 Room Air 04/03/22 23:58 36.5 C 81 20 173/77 H 94 Room Air Laboratory Results Laboratory Results WBC 10.08 K/ul (4.8-10.8) 04/03/22 06:00 RBC 3.84 M/uL (4.63-6.08) L 04/03/22 06:00 Hgb 12.0 g/dl (14.0-18.0) L 04/03/22 06:00 Hct 36.1 % (40.1-51.0) L 04/03/22 06:00 MCV 94.0 fL (80.0-100.0) 04/03/22 06:00 MCH 31.3 pg (25.0-34.0) 04/03/22 06:00 MCHC 33.2 g/dL (32.0-36.0) 04/03/22 06:00 RDW Std Deviation 41.7 fL (36.4-46.3) 04/03/22 06:00 RDW Coeff of Robert 12.0 % (11.5-14.5) 04/03/22 06:00 Plt Count 321 K/uL (130-400) 04/03/22 06:00 MPV 9.3 fL (9.4-12.4) L 04/03/22 06:00 Immature Gran % (Auto) 1.0 % 03/26/22 05:06 Neut % (Auto) 83.2 % 03/26/22 05:06 Lymph % (Auto) 8.2 % 03/26/22 05:06 [place] % (Auto) 7.1 % 03/26/22 05:06 Eos % (Auto) 0.2 % 03/26/22 05:06 Baso % (Auto) 0.3 % 03/26/22 05:06 Neut # (Auto) 15.31 K/uL (1.4-6.5) H 03/26/22 05:06 Lymph # (Auto) 1.51 K/uL (1.2-3.4) 03/26/22 05:06 [place] # (Auto) 1.31 K/uL (0.24-0.82) H 03/26/22 05:06 Eos # (Auto) 0.03 K/uL (0-0.50) 03/26/22 05:06 Baso # (Auto) 0.06 K/uL (0-0.2) 03/26/22 05:06 Immature Gran # (Auto) 0.19 K/uL (0.00-0.02) H 03/26/22 05:06 Sodium 136 mmol/L (136-145) 04/03/22 06:00 Potassium 4.3 mmol/L (3.5-5.1) 04/03/22 06:00 Chloride 103 mmol/L (98-107) 04/03/22 06:00 Carbon Dioxide 26 mmol/L (21-32) 04/03/22 06:00 Anion Gap 7 (3-11) 04/03/22 06:00 BUN 11 mg/dl (6-23) 04/03/22 06:00 Creatinine 0.78 mg/dl (0.6-1.4) 04/03/22 06:00 Est Cr Clr Drug Dosing 132.4 ml/min 04/03/22 06:00 Est GFR ( Amer) 110.6 ml/min 04/03/22 06:00 Est GFR (Non-Af Amer) 95.4 ml/min 04/03/22 06:00 BUN/Creatinine Ratio 14.1 (10-20) 04/03/22 06:00 Glucose 127 mg/dl (70-99(Fasting)) H 04/03/22 06:00 POC Glucose 117 mg/dl (70-99) H 04/04/22 07:59 Lactate 0.9 mmol/L (0.4-2.0) 03/25/22 08:29 Calcium 8.9 mg/dl (8.5-10.1) 04/03/22 06:00 Phosphorus 2.6 mg/dl (2.5-4.9) 03/27/22 07:17 Magnesium 1.9 mg/dl (1.7-2.4) 03/27/22 07:17 Total Bilirubin 2.0 mg/dl (0.2-1.0) H 03/26/22 05:06 AST 19 U/L (13-39) 03/26/22 05:06 ALT 28 U/L (7-52) 03/26/22 05:06 Alkaline Phosphatase 65 U/L (34-104) 03/26/22 05:06 Total Protein 6.5 gm/dl (6.0-8.3) 03/26/22 05:06 Albumin 3.3 gm/dl (3.4-5.0) L 03/26/22 05:06 Globulin 3.2 gm/dl (2.5-4.0) 03/26/22 05:06 Albumin/Globulin Ratio 1.0 (0.9-2) 03/26/22 05:06 Procalcitonin 0.60 ng/ml (0-0.5) H 03/27/22 07:17 Urine Color Yellow 03/27/22 03:00 Urine Appearance Clear (Clear) 03/27/22 03:00 Urine pH 5.5 (4.5-7.5) 03/27/22 03:00 Ur Specific Rohwer 1.023 (1.000-1.030) 03/27/22 03:00 Urine Protein 1+ (Negative) H 03/27/22 03:00 Urine Glucose (UA) Trace (Negative) H 03/27/22 03:00 Urine Ketones 1+ (Negative) H 03/27/22 03:00 Urine Blood Negative (Negative) 03/27/22 03:00 Urine Nitrite Negative (Negative) 03/27/22 03:00 Urine Bilirubin Negative (Negative) 03/27/22 03:00 Urine Urobilinogen Negative (Negative) 03/27/22 03:00 Ur Leukocyte Esterase Negative (Negative) 03/27/22 03:00 Urine WBC (Auto) 1-5 /hpf (0-5) 03/27/22 03:00 Urine RBC (Auto) 0-4 /hpf (0-4) 03/27/22 03:00 U Hyaline Cast (Auto) 0 /lpf (0-5) 03/27/22 03:00 U Epithel Cells (Auto) 5-10 /lpf (0-5) H 03/27/22 03:00 Urine Bacteria (Auto) 1+ (Negative) H 03/27/22 03:00 Urine Yeast Not Reportable 03/27/22 03:00 Nasal Screen MRSA (PCR) Negative (Negative) 03/27/22 03:00 Stl C. diff Tox B Gene Positive Cdiff Gene (Neg) H 03/28/22 10:44 Stl C.difficile Tox A&B Negative Cdiff Toxin (Negative) 03/28/22 10:44 SARS-CoV-2, RNA, NAAT NEGATIVE (NEGATIVE) 03/25/22 09:30 Impressions Scrotum Ultrasound 03/25/22 08:22 ULTRASOUND TESTES AND SCROTUM CLINICAL HISTORY: Scrotal cellulitis. COMPARISON STUDY: No priors. TECHNIQUE: Real-time, grayscale, and color Doppler sonography of the testes and scrotum is performed. Images are reviewed in the transverse and longitudinal planes. FINDINGS: The testes are normal in size and homogeneous in echotexture. The right testis measures 3.8 x 2.1 x 2.9 cm and the left testis measures 3.9 x 2.3 by cm. A 3 mm hypoechoic nodule is noted in the right testis. No flow was shown within this nodule. Question mild hyperemia of the testes. Normal Doppler waveforms are identified in both testes. The right epididymal head is heterogeneous and hyperemic. A 12 mm epididymal head cyst is noted on the right. Left epididymal head cysts measure up to 5 mm. There is diffuse scrotal wall thickening. No varicocele or hydrocele is seen. IMPRESSION: 1. There is diffuse scrotal wall thickening consistent with the reported history of cellulitis. Clinical correlation will be required. 2. A 3 mm indeterminant hypoechoic nodule is identified in the right testis. A small testicular neoplasm is not excluded. Nonemergent follow-up with urology is recommended, as is a precautionary 3-4 month follow-up scrotal ultrasound. 3. Question mild hyperemia of the right epididymis and both testes. Correlate clinically for evidence of epididymoorchitis. ACT 112: Negative or not required by law. Electronically signed by: Atilio Moreau M.D. 03/25/2022 9:[address] 04/03/22 07:28 CT pelvis wo con HISTORY: Scrotal swelling. scrotal abscess? please scan through scrotum TECHNIQUE: Multiaxial CT images of the pelvis are performed without the use of intravenous contrast. Sagittal coronal reformations were performed at the workstation by the radiologist. COMPARISON STUDY: Abdomen and pelvis CT 01/02/2018. FINDINGS: Small fat-containing left inguinal hernia. Mild bilateral inguinal lymphadenopathy which may be reactive. There is subcutaneous edema/fat stranding at the base of the penis. There is extensive diffuse scrotal thickening/edema most pronounced on the left. A loculated fluid collection/abscess with be difficult to exclude on this noncontrast study but is not clearly identified. Therefore, follow-up ultrasound recommended to exclude the possibility of underlying abscess. No subcutaneous gas identified in the scrotum. There is also mild bilateral external iliac lymphadenopathy. The visualized loops of bowel show no wall thickening or obstruction. Normal appendix. Colonic diverticulosis. No evidence for acute diverticulitis. The prostate gland is normal in size. The bladder is unremarkable. Tiny fat-containing umbilical hernia. No pelvic free fluid. Degenerative changes within the lumbar spine. No fractures identified within the pelvis. Trace bilateral hydroceles are noted. IMPRESSION: There is extensive diffuse scrotal thickening/edema most pronounced on the left. A loculated fluid collection/abscess with be difficult to exclude on this noncontrast study but is not clearly identified. Therefore, follow-up ultrasound can be performed to exclude the possibility of underlying abscess. ACT 112: Negative or not required by law. Electronically signed by: Chino Fuentes M.D. 04/03/2022 10:26 AM
[2022-04-04] MEDS: AMOXICILLIN/CLAVULANATE 875 MG TAB PO SCH ×2 (14:04→18:30)
[2022-04-04] MEDS: ENOXAPARIN INJ 40 MG/0.4 ML SYR SQ SCH (15:41)
[2022-04-04] MEDS: SULFAMETHOXAZOLE/TRIMETHOPRIM DS 800/160MG TAB PO SCH (21:34)
[2022-04-05] MEDS: RASPBERRY SYRUP 5 ML UDP PO SCH ×5 (00:02→23:21)
[2022-04-05] MEDS: VANCOMYCIN HCL 125 MG/2.5ML SOLN PO SCH ×5 (00:02→23:21)
[2022-04-05] MEDS: CHLORPHENIRAMINE PO SCH ×5 (00:03→23:21)
[2022-04-05] MEDS: traMADol HCL 50 MG TABLET PO PRN (01:14)
[2022-04-05] MEDS: ONDANSETRON INJ 2 MG/ML 2 ML VIAL IV PRN (02:56)
[2022-04-05 05:53] LABS: Hemoglobin 12.9 g/dl (14.0-18.0); Mean Corpuscular Hemoglobin 31.5 pg (25.0-34.0); Mean Corpuscular Hgb Conc 33.9 g/dL (32.0-36.0); Mean Corpuscular Volume 92.9 fL (80.0-100.0); Mean Platelet Volume 9.1 fL (9.4-12.4); Platelet Count 390 K/uL (130-400); RDW Coefficient of Variation 11.9 % (11.5-14.5); RDW Standard Deviation 40.3 fL (36.4-46.3); Red Blood Count 4.09 M/uL (4.63-6.08); White Blood Count 18.82 K/ul (4.8-10.8)
[2022-04-05 06:15] LABS: Albumin Globulin Ratio 0.8 (0.9-2); Albumin Level 3.6 gm/dl (3.4-5.0); BUN Creatinine Ratio 17.2 (10-20); Bilirubin,Total 0.8 mg/dl (0.2-1.0); C Reactive Protein 1.41 mg/dl (0-0.5); Calcium 9.5 mg/dl (8.5-10.1); Creatinine Clr Calc Pharmacy 108.5 ml/min; Est GFR (African American) 100.2 ml/min; Est GFR (Non-African American) 86.5 ml/min; Globulin 4.3 gm/dl (2.5-4.0); Potassium 4.6 mmol/L (3.5-5.1); Total Protein 7.9 gm/dl (6.0-8.3)
[2022-04-05] MEDS: AMOXICILLIN/CLAVULANATE 875 MG TAB PO SCH ×2 (08:20→17:27)
[2022-04-05] MEDS: LOSARTAN POTASSIUM 50 MG TAB PO SCH (08:21)
[2022-04-05] MEDS: ASPIRIN 81 MG ECTAB PO SCH (08:21)
[2022-04-05] MEDS: POTASSIUM CHLORIDE CRTAB 20 MEQ TABCR PO SCH (08:22)
[2022-04-05] MEDS: SULFAMETHOXAZOLE/TRIMETHOPRIM DS 800/160MG TAB PO SCH ×2 (08:22→20:22)
[2022-04-05] MEDS: NYSTATIN POWDER 15GM BTL EXT SCH ×2 (08:22→20:23)
[2022-04-05] MEDS: INSULIN ASPART PER UNIT SC SCH ×4 (08:29→20:24)
[2022-04-05] MEDS: LANTUS PER UNIT CHARGE SQ SCH ×2 (08:30→20:24)
--- NOTE | 2022-04-05 08:49 | Urology Progress Note ---
Date of Service April 05, 2022 Assessment & Plan (1) Epididymoorchitis: (2) Cellulitis, scrotum: Plan Continues to improve, now on Augmentin and Bactrim Still no clear collection that necessitates incision and drainage. Continue antibiotics and supportive care Will closely follow Admission and Anticipated Discharge Date Admission Date: March 25, 2022 Subjective Feeling well overall, denies any fevers. Had a little bit of nausea with oral antibiotics. Feels like scrotal pain is improving. Still having some weeping from the wound Physical Exam Physical Exam: edema, erythema and tenderness of the scrotum continues to improve. no erythema or tenderness in bilateral groins. Eschar over the left dependent/anterior portion of the scrotum, on the inferior portion of the there is some sloughing and drainage of some serous, mildly purulent material diffusely. No palpable drainable abscess or fluctuance that I can appreciate no crepitus Results & Data ([facility]) Vital Signs (Past 12 Hours) Vital Signs Temp Pulse Resp BP BP Pulse Ox O2 Del Method 04/05/22 08:00 36.8 C 95 H 18 118/70 97 Room Air 04/04/22 23:24 36.9 C 81 16 167/77 H 97 Room Air PG Care Time/CCT Total # of Minutes Spent Total Time Spent with Patient: Total time spent is greater than 50% in coordination of care (as documented) at patient's floor/unit and/or counseling patient: Coding Level of Care Code 09452 Subseq Hosp Care Lvl 1 Diagnoses Epididymoorchitis N45.3 Cellulitis, scrotum N49.2
--- NOTE | 2022-04-05 13:32 | Hospitalist Progress Note ---
Date of Service April 05, 2022 Assessment & Plan (1) Cellulitis, scrotum: Plan: 66-year-old male with PMH HTN, dyslipidemia, DM II, h/o perianal abscess presented to ER with complaint of scrotal erythema, edema and tenderness x 2 days. Patient noticed non-tender lump to distal left scrotum on 03/19/22. PCP f/u on 03/22/22 and was prescribed Bactrim. Took for 2 days. Denies fever/chills, vomiting, known trauma, penile discharge, urinary symptoms. +mild nausea. In ER afebrile, initial P: 115 down to 91, R: 18, BP 162/132 down to 161/80, 97% on room air. WBC: 17, lactate: WNL. Ultrasound scrotum: There is diffuse scrotal wall thickening consistent with the reported history of cellulitis. Question mild hyperemia of the right epididymis and both testes. Correlate clinically for evidence of epididymoorchitis. In ER given Zosyn, vancomycin, 500 mL NSS Blood cultures obtained after initial antibiotics given Scrotal cellulitis, possible epididymoorchitis Sepsis on admission-resolved Met sepsis criteria on admission with tachycardia, leucocytosis. procal 0.6 WBC up trended again to 18.8 after initial downtrend. He continues to be afebrile. ESR and CRP elevated. Urine clx negative, blood clx negative, MRSA screen negative Plan: S/p empiric IV ABx initially, ID recommended levaquin 750 mg oral daily through 04/09 and continue oral vanc q6hr until 04/12. Qtc is 495; reached out to ID on 04/04 if there are any other alternatives. Recommended Bacrim DS and amox/Clav 875mg twice daily. Urology following- recommendations noted- CT noted but without contrast and unable to exclude abscess. Recommend to closely follow, continue antibiotics and supportive care. (2) Abnormal ultrasound: Plan: Scrotum US: A 3 mm indeterminant hypoechoic nodule is identified in the right testis. A small testicular neoplasm is not excluded. Nonemergent follow-up with urology is recommended, as is a precautionary 3-4 month follow-up scrotal ultrasound. Urology already following (3) Hyponatremia: Plan: resolved (4) Diabetes mellitus, type II: Plan: A1c: 7.9 on 03/01/2022 On Trulicity every sunday at home BG well controlled on current basal bolus regimen- will continue- adjust as indicated (5) HTN (hypertension): Plan: Gets cough with lisinopril and hence discontinued. started on losartan instead- BP still elevated- will increase losartan dose. hold HCTZ for now. Cough resolved Plan DVT ppx- sc lovenox Dispo- Recommend to closely follow for now. Admission and Anticipated Discharge Date Admission Date: March 25, 2022 Subjective Patient seen and examined at bedside. He feels that the pain is better overall. He has no difficulty urinating. He denies any fever or chills. He complains of episode of loose stool in the morning. Review of Systems Review of Systems: All systems reviewed & are unremarkable except as noted in Subjective Physical Exam Physical Exam: General: Morbidly obese, sitting comfortably in bed, not in distress, on room air HEENT: EOMI, PERRL, MMM Chest: Clear breath sounds bilaterally, no wheezes or crackles CVS: regular, normal heart sounds, no murmur Abdomen: Soft, non tender, not distended, normal bowel sounds Neuro: Awake, alert, oriented, conversing well, non focal Extremities: No edema : scrotal cellulitis with erythema, tenderness and swelling noted. Black eschar present on scrotum on left side. Sloughing and drainage of seropurulent on the inferior portion of the scrotum Results & Data Results & Data ([facility] [place]) Vital Signs (Past 12 Hours) Vital Signs Temp Pulse Resp BP Pulse Ox O2 Del Method 04/05/22 12:31 36.9 C 90 14 146/78 H 95 Room Air 04/05/22 08:00 36.8 C 95 H 18 118/70 97 Room Air Diagnostic Findings Laboratory Results WBC 18.82 K/ul (4.8-10.8) H 04/05/22 05:28 RBC 4.09 M/uL (4.63-6.08) L 04/05/22 05:28 Hgb 12.9 g/dl (14.0-18.0) L 04/05/22 05:28 Hct 38.0 % (40.1-51.0) L 04/05/22 05:28 MCV 92.9 fL (80.0-100.0) 04/05/22 05:28 MCH 31.5 pg (25.0-34.0) 04/05/22 05:28 MCHC 33.9 g/dL (32.0-36.0) 04/05/22 05:28 RDW Std Deviation 40.3 fL (36.4-46.3) 04/05/22 05:28 RDW Coeff of Robert 11.9 % (11.5-14.5) 04/05/22 05:28 Plt Count 390 K/uL (130-400) 04/05/22 05:28 MPV 9.1 fL (9.4-12.4) L 04/05/22 05:28 Immature Gran % (Auto) 1.0 % 03/26/22 05:06 Neut % (Auto) 83.2 % 03/26/22 05:06 Lymph % (Auto) 8.2 % 03/26/22 05:06 [place] % (Auto) 7.1 % 03/26/22 05:06 Eos % (Auto) 0.2 % 03/26/22 05:06 Baso % (Auto) 0.3 % 03/26/22 05:06 Neut # (Auto) 15.31 K/uL (1.4-6.5) H 03/26/22 05:06 Lymph # (Auto) 1.51 K/uL (1.2-3.4) 03/26/22 05:06 [place] # (Auto) 1.31 K/uL (0.24-0.82) H 03/26/22 05:06 Eos # (Auto) 0.03 K/uL (0-0.50) 03/26/22 05:06 Baso # (Auto) 0.06 K/uL (0-0.2) 03/26/22 05:06 Immature Gran # (Auto) 0.19 K/uL (0.00-0.02) H 03/26/22 05:06 ESR 97 mm/hr (0-20) H 04/05/22 05:28 Sodium 133 mmol/L (136-145) L 04/05/22 05:28 Potassium 4.6 mmol/L (3.5-5.1) 04/05/22 05:28 Chloride 101 mmol/L (98-107) 04/05/22 05:28 Carbon Dioxide 24 mmol/L (21-32) 04/05/22 05:28 Anion Gap 8 (3-11) 04/05/22 05:28 BUN 16 mg/dl (6-23) 04/05/22 05:28 Creatinine 0.93 mg/dl (0.6-1.4) 04/05/22 05:28 Est Cr Clr Drug Dosing 108.5 ml/min 04/05/22 05:28 Est GFR ( Amer) 100.2 ml/min 04/05/22 05:28 Est GFR (Non-Af Amer) 86.5 ml/min 04/05/22 05:28 BUN/Creatinine Ratio 17.2 (10-20) 04/05/22 05:28 Glucose 162 mg/dl (70-99(Fasting)) H 04/05/22 05:28 POC Glucose 161 mg/dl (70-99) H 04/05/22 12:02 Lactate 0.9 mmol/L (0.4-2.0) 03/25/22 08:29 Calcium 9.5 mg/dl (8.5-10.1) 04/05/22 05:28 Phosphorus 2.6 mg/dl (2.5-4.9) 03/27/22 07:17 Magnesium 1.9 mg/dl (1.7-2.4) 03/27/22 07:17 Total Bilirubin 0.8 mg/dl (0.2-1.0) 04/05/22 05:28 AST 22 U/L (13-39) 04/05/22 05:28 ALT 31 U/L (7-52) 04/05/22 05:28 Alkaline Phosphatase 56 U/L (34-104) 04/05/22 05:28 C-Reactive Protein 1.41 mg/dl (0-0.5) H 04/05/22 05:28 Total Protein 7.9 gm/dl (6.0-8.3) 04/05/22 05:28 Albumin 3.6 gm/dl (3.4-5.0) 04/05/22 05:28 Globulin 4.3 gm/dl (2.5-4.0) H 04/05/22 05:28 Albumin/Globulin Ratio 0.8 (0.9-2) L 04/05/22 05:28 Procalcitonin 0.60 ng/ml (0-0.5) H 03/27/22 07:17 Urine Color Yellow 03/27/22 03:00 Urine Appearance Clear (Clear) 03/27/22 03:00 Urine pH 5.5 (4.5-7.5) 03/27/22 03:00 Ur Specific [place] 1.023 (1.000-1.030) 03/27/22 03:00 Urine Protein 1+ (Negative) H 03/27/22 03:00 Urine Glucose (UA) Trace (Negative) H 03/27/22 03:00 Urine Ketones 1+ (Negative) H 03/27/22 03:00 Urine Blood Negative (Negative) 03/27/22 03:00 Urine Nitrite Negative (Negative) 03/27/22 03:00 Urine Bilirubin Negative (Negative) 03/27/22 03:00 Urine Urobilinogen Negative (Negative) 03/27/22 03:00 Ur Leukocyte Esterase Negative (Negative) 03/27/22 03:00 Urine WBC (Auto) 1-5 /hpf (0-5) 03/27/22 03:00 Urine RBC (Auto) 0-4 /hpf (0-4) 03/27/22 03:00 U Hyaline Cast (Auto) 0 /lpf (0-5) 03/27/22 03:00 U Epithel Cells (Auto) 5-10 /lpf (0-5) H 03/27/22 03:00 Urine Bacteria (Auto) 1+ (Negative) H 03/27/22 03:00 Urine Yeast Not Reportable 03/27/22 03:00 Nasal Screen MRSA (PCR) Negative (Negative) 03/27/22 03:00 Stl C. diff Tox B Gene Positive Cdiff Gene (Neg) H 03/28/22 10:44 Stl C.difficile Tox A&B Negative Cdiff Toxin (Negative) 03/28/22 10:44 SARS-CoV-2, RNA, NAAT NEGATIVE (NEGATIVE) 03/25/22 09:30 Impressions Scrotum Ultrasound 03/25/22 08:22 ULTRASOUND TESTES AND SCROTUM CLINICAL HISTORY: Scrotal cellulitis. COMPARISON STUDY: No priors. TECHNIQUE: Real-time, grayscale, and color Doppler sonography of the testes and scrotum is performed. Images are reviewed in the transverse and longitudinal planes. FINDINGS: The testes are normal in size and homogeneous in echotexture. The right testis measures 3.8 x 2.1 x 2.9 cm and the left testis measures 3.9 x 2.3 by cm. A 3 mm hypoechoic nodule is noted in the right testis. No flow was shown within this nodule. Question mild hyperemia of the testes. Normal Doppler waveforms are identified in both testes. The right epididymal head is heterogeneous and hyperemic. A 12 mm epididymal head cyst is noted on the right. Left epididymal head cysts measure up to 5 mm. There is diffuse scrotal wall thickening. No varicocele or hydrocele is seen. IMPRESSION: 1. There is diffuse scrotal wall thickening consistent with the reported history of cellulitis. Clinical correlation will be required. 2. A 3 mm indeterminant hypoechoic nodule is identified in the right testis. A small testicular neoplasm is not excluded. Nonemergent follow-up with urology is recommended, as is a precautionary 3-4 month follow-up scrotal ultrasound. 3. Question mild hyperemia of the right epididymis and both testes. Correlate clinically for evidence of epididymoorchitis. ACT 112: Negative or not required by law. Electronically signed by: Atilio Moreau M.D. 03/25/2022 9:[address] 04/03/22 07:28 CT pelvis wo con HISTORY: Scrotal swelling. scrotal abscess? please scan through scrotum TECHNIQUE: Multiaxial CT images of the pelvis are performed without the use of intravenous contrast. Sagittal coronal reformations were performed at the workstation by the radiologist. COMPARISON STUDY: Abdomen and pelvis CT 01/02/2018. FINDINGS: Small fat-containing left inguinal hernia. Mild bilateral inguinal lymphadenopathy which may be reactive. There is subcutaneous edema/fat stranding at the base of the penis. There is extensive diffuse scrotal thickening/edema most pronounced on the left. A loculated fluid collection/abscess with be difficult to exclude on this noncontrast study but is not clearly identified. Therefore, follow-up ultrasound recommended to exclude the possibility of underlying abscess. No subcutaneous gas identified in the scrotum. There is also mild bilateral external iliac lymphadenopathy. The visualized loops of bowel show no wall thickening or obstruction. Normal appendix. Colonic diverticulosis. No evidence for acute diverticulitis. The prostate gland is normal in size. The bladder is unremarkable. Tiny fat-containing umbilical hernia. No pelvic free fluid. Degenerative changes within the lumbar spine. No fractures identified within the pelvis. Trace bilateral hydroceles are noted. IMPRESSION: There is extensive diffuse scrotal thickening/edema most pronounced on the left. A loculated fluid collection/abscess with be difficult to exclude on this n oncontrast study but is not clearly identified. Therefore, follow-up ultrasound can be performed to exclude the possibility of underlying abscess. ACT 112: Negative or not required by law. Electronically signed by: Chino Fuentes M.D. 04/03/2022 10:26 AM
--- NOTE | 2022-04-05 13:50 | Hospitalist Progress Note ---
Date of Service April 05, 2022 Assessment & Plan (1) Cellulitis, scrotum: Plan: 66-year-old male with PMH HTN, dyslipidemia, DM II, h/o perianal abscess presented to ER with complaint of scrotal erythema, edema and tenderness x 2 days. Patient noticed non-tender lump to distal left scrotum on 03/19/22. PCP f/u on 03/22/22 and was prescribed Bactrim. Took for 2 days. Denies fever/chills, vomiting, known trauma, penile discharge, urinary symptoms. +mild nausea. In ER afebrile, initial P: 115 down to 91, R: 18, BP 162/132 down to 161/80, 97% on room air. WBC: 17, lactate: WNL. Ultrasound scrotum: There is diffuse scrotal wall thickening consistent with the reported history of cellulitis. Question mild hyperemia of the right epididymis and both testes. Correlate clinically for evidence of epididymoorchitis. In ER given Zosyn, vancomycin, 500 mL NSS Blood cultures obtained after initial antibiotics given Scrotal cellulitis, possible epididymoorchitis Sepsis on admission Met sepsis criteria on admission with tachycardia, leucocytosis. procal 0.6 WBC up trended to 18 after initial downtrend. ESR and CRP both elevated. Urine clx negative, blood clx negative, MRSA screen negative S/p empiric IV ABx -> Per ID, continue levaquin 750 mg oral daily through 04/09 and continue oral vanc q6hr until 04/12. Qtc is 495; reached out to ID on 04/04 if there are any other alternatives.Recommended Bacrim DS and amox/Clav 875mg twice daily. Urology following- recommendations noted. Continue to follow closely. If there is any spike of fever; switch to IV antibiotics and possible imaging. (2) Abnormal ultrasound: Plan: Scrotum US: A 3 mm indeterminant hypoechoic nodule is identified in the right testis. A small testicular neoplasm is not excluded. Nonemergent follow-up with urology is recommended, as is a precautionary 3-4 month follow-up scrotal ultrasound. Urology already following (3) Hyponatremia: Plan: Resolved (4) Diabetes mellitus, type II: Plan: A1c: 7.9 on 03/01/2022 On Trulicity every stacy at home BG well controlled on current basal bolus regimen- will continue- adjust as indicated (5) HTN (hypertension): Plan: Gets cough with lisinopril and hence discontinued. started on losartan instead- BP still elevated- will increase losartan dose. hold HCTZ for now. Cough resolved Plan DVT ppx- sc lovenox Dispo- Recommend to closely follow for now. Admission and Anticipated Discharge Date Admission Date: March 25, 2022 Subjective Patient seen and examined at bedside. He denies any fever or chills. He feels that the pain overall has improved compared to yesterday. He is able to urinate without any difficulty. He complains of loose bowel movement after the start of the antibiotic. Review of Systems Review of Systems: All systems reviewed & are unremarkable except as noted in Subjective Physical Exam Physical Exam: General: Morbidly obese, sitting comfortably in bed, not in distress, on room air HEENT: EOMI, PERRL, MMM Chest: Clear breath sounds bilaterally, no wheezes or crackles CVS: regular, normal heart sounds, no murmur Abdomen: Soft, non tender, not distended, normal bowel sounds Neuro: Awake, alert, oriented, conversing well, non focal Extremities: No edema : scrotal cellulitis with erythema, tenderness and swelling noted. Eschar present over left testes. Seropurulent fluid draining on the left side. Results & Data Results & Data ([facility]) Vital Signs (Past 12 Hours) Vital Signs Temp Pulse Resp BP Pulse Ox O2 Del Method 04/05/22 12:31 36.9 C 90 14 146/78 H 95 Room Air 04/05/22 08:00 36.8 C 95 H 18 118/70 97 Room Air Diagnostic Findings Laboratory Results WBC 18.82 K/ul (4.8-10.8) H 04/05/22 05:28 RBC 4.09 M/uL (4.63-6.08) L 04/05/22 05:28 Hgb 12.9 g/dl (14.0-18.0) L 04/05/22 05:28 Hct 38.0 % (40.1-51.0) L 04/05/22 05:28 MCV 92.9 fL (80.0-100.0) 04/05/22 05:28 MCH 31.5 pg (25.0-34.0) 04/05/22 05:28 MCHC 33.9 g/dL (32.0-36.0) 04/05/22 05:28 RDW Std Deviation 40.3 fL (36.4-46.3) 04/05/22 05:28 RDW Coeff of Robert 11.9 % (11.5-14.5) 04/05/22 05:28 Plt Count 390 K/uL (130-400) 04/05/22 05:28 MPV 9.1 fL (9.4-12.4) L 04/05/22 05:28 Immature Gran % (Auto) 1.0 % 03/26/22 05:06 Neut % (Auto) 83.2 % 03/26/22 05:06 Lymph % (Auto) 8.2 % 03/26/22 05:06 [place] % (Auto) 7.1 % 03/26/22 05:06 Eos % (Auto) 0.2 % 03/26/22 05:06 Baso % (Auto) 0.3 % 03/26/22 05:06 Neut # (Auto) 15.31 K/uL (1.4-6.5) H 03/26/22 05:06 Lymph # (Auto) 1.51 K/uL (1.2-3.4) 03/26/22 05:06 [place] # (Auto) 1.31 K/uL (0.24-0.82) H 03/26/22 05:06 Eos # (Auto) 0.03 K/uL (0-0.50) 03/26/22 05:06 Baso # (Auto) 0.06 K/uL (0-0.2) 03/26/22 05:06 Immature Gran # (Auto) 0.19 K/uL (0.00-0.02) H 03/26/22 05:06 ESR 97 mm/hr (0-20) H 04/05/22 05:28 Sodium 133 mmol/L (136-145) L 04/05/22 05:28 Potassium 4.6 mmol/L (3.5-5.1) 04/05/22 05:28 Chloride 101 mmol/L (98-107) 04/05/22 05:28 Carbon Dioxide 24 mmol/L (21-32) 04/05/22 05:28 Anion Gap 8 (3-11) 04/05/22 05:28 BUN 16 mg/dl (6-23) 04/05/22 05:28 Creatinine 0.93 mg/dl (0.6-1.4) 04/05/22 05:28 Est Cr Clr Drug Dosing 108.5 ml/min 04/05/22 05:28 Est GFR ( Amer) 100.2 ml/min 04/05/22 05:28 Est GFR (Non-Af Amer) 86.5 ml/min 04/05/22 05:28 BUN/Creatinine Ratio 17.2 (10-20) 04/05/22 05:28 Glucose 162 mg/dl (70-99(Fasting)) H 04/05/22 05:28 POC Glucose 161 mg/dl (70-99) H 04/05/22 12:02 Lactate 0.9 mmol/L (0.4-2.0) 03/25/22 08:29 Calcium 9.5 mg/dl (8.5-10.1) 04/05/22 05:28 Phosphorus 2.6 mg/dl (2.5-4.9) 03/27/22 07:17 Magnesium 1.9 mg/dl (1.7-2.4) 03/27/22 07:17 Total Bilirubin 0.8 mg/dl (0.2-1.0) 04/05/22 05:28 AST 22 U/L (13-39) 04/05/22 05:28 ALT 31 U/L (7-52) 04/05/22 05:28 Alkaline Phosphatase 56 U/L (34-104) 04/05/22 05:28 C-Reactive Protein 1.41 mg/dl (0-0.5) H 04/05/22 05:28 Total Protein 7.9 gm/dl (6.0-8.3) 04/05/22 05:28 Albumin 3.6 gm/dl (3.4-5.0) 04/05/22 05:28 Globulin 4.3 gm/dl (2.5-4.0) H 04/05/22 05:28 Albumin/Globulin Ratio 0.8 (0.9-2) L 04/05/22 05:28 Procalcitonin 0.60 ng/ml (0-0.5) H 03/27/22 07:17 Urine Color Yellow 03/27/22 03:00 Urine Appearance Clear (Clear) 03/27/22 03:00 Urine pH 5.5 (4.5-7.5) 03/27/22 03:00 Ur Specific [place] 1.023 (1.000-1.030) 03/27/22 03:00 Urine Protein 1+ (Negative) H 03/27/22 03:00 Urine Glucose (UA) Trace (Negative) H 03/27/22 03:00 Urine Ketones 1+ (Negative) H 03/27/22 03:00 Urine Blood Negative (Negative) 03/27/22 03:00 Urine Nitrite Negative (Negative) 03/27/22 03:00 Urine Bilirubin Negative (Negative) 03/27/22 03:00 Urine Urobilinogen Negative (Negative) 03/27/22 03:00 Ur Leukocyte Esterase Negative (Negative) 03/27/22 03:00 Urine WBC (Auto) 1-5 /hpf (0-5) 03/27/22 03:00 Urine RBC (Auto) 0-4 /hpf (0-4) 03/27/22 03:00 U Hyaline Cast (Auto) 0 /lpf (0-5) 03/27/22 03:00 U Epithel Cells (Auto) 5-10 /lpf (0-5) H 03/27/22 03:00 Urine Bacteria (Auto) 1+ (Negative) H 03/27/22 03:00 Urine Yeast Not Reportable 03/27/22 03:00 Nasal Screen MRSA (PCR) Negative (Negative) 03/27/22 03:00 Stl C. diff Tox B Gene Positive Cdiff Gene (Neg) H 03/28/22 10:44 Stl C.difficile Tox A&B Negative Cdiff Toxin (Negative) 03/28/22 10:44 SARS-CoV-2, RNA, NAAT NEGATIVE (NEGATIVE) 03/25/22 09:30 Impressions Scrotum Ultrasound 03/25/22 08:22 ULTRASOUND TESTES AND SCROTUM CLINICAL HISTORY: Scrotal cellulitis. COMPARISON STUDY: No priors. TECHNIQUE: Real-time, grayscale, and color Doppler sonography of the testes and scrotum is performed. Images are reviewed in the transverse and longitudinal planes. FINDINGS: The testes are normal in size and homogeneous in echotexture. The right testis measures 3.8 x 2.1 x 2.9 cm and the left testis measures 3.9 x 2.3 by cm. A 3 mm hypoechoic nodule is noted in the right testis. No flow was shown within this nodule. Question mild hyperemia of the testes. Normal Doppler waveforms are identified in both testes. The right epididymal head is heterogeneous and hyperemic. A 12 mm epididymal head cyst is noted on the right. Left epididymal head cysts measure up to 5 mm. There is diffuse scrotal wall thickening. No varicocele or hydrocele is seen. IMPRESSION: 1. There is diffuse scrotal wall thickening consistent with the reported history of cellulitis. Clinical correlation will be required. 2. A 3 mm indeterminant hypoechoic nodule is identified in the right testis. A small testicular neoplasm is not excluded. Nonemergent follow-up with urology is recommended, as is a precautionary 3-4 month follow-up scrotal ultrasound. 3. Question mild hyperemia of the right epididymis and both testes. Correlate clinically for evidence of epididymoorchitis. ACT 112: Negative or not required by law. Electronically signed by: Atilio Moreau M.D. 03/25/2022 9:[address] 04/03/22 07:28 CT pelvis wo con HISTORY: Scrotal swelling. scrotal abscess? please scan through scrotum TECHNIQUE: Multiaxial CT images of the pelvis are performed without the use of intravenous contrast. Sagittal coronal reformations were performed at the workstation by the radiologist. COMPARISON STUDY: Abdomen and pelvis CT 01/02/2018. FINDINGS: Small fat-containing left inguinal hernia. Mild bilateral inguinal lymphadenopathy which may be reactive. There is subcutaneous edema/fat stranding at the base of the penis. There is extensive diffuse scrotal thickening/edema most pronounced on the left. A loculated fluid collection/abscess with be difficult to exclude on this noncontrast study but is not clearly identified. Therefore, follow-up ultrasound recommended to exclude the possibility of underlying abscess. No subcutaneous gas identified in the scrotum. There is also mild bilateral external iliac lymphadenopathy. The visualized loops of bowel show no wall thickening or obstruction. Normal appendix. Colonic diverticulosis. No evidence for acute diverticulitis. The prostate gland is normal in size. The bladder is unremarkable. Tiny fat-containing umbilical hernia. No pelvic free fluid. Degenerative changes within the lumbar spine. No fractures identified within the pelvis. Trace bilateral hydroceles are noted. IMPRESSION: There is extensive diffuse scrotal thickening/edema most pronounced on the left. A loculated fluid collection/abscess with be difficult to exclude on this noncontrast study but is not clearly identified. Therefore, follow-up ultrasound can be performed to exclude the possibility of underlying abscess. ACT 112: Negative or not required by law. Electronically signed by: Chino Fuentes M.D. 04/03/2022 10:26 AM
[2022-04-05] MEDS: ENOXAPARIN INJ 40 MG/0.4 ML SYR SQ SCH (16:17)
[2022-04-05] MEDS: ACETAMINOPHEN 325 MG TAB PO PRN (17:25)
[2022-04-06] MEDS: VANCOMYCIN HCL 125 MG/2.5ML SOLN PO SCH ×3 (06:28→17:38)
[2022-04-06] MEDS: CHLORPHENIRAMINE PO SCH ×3 (06:28→17:38)
[2022-04-06] MEDS: RASPBERRY SYRUP 5 ML UDP PO SCH ×3 (06:29→17:38)
[2022-04-06 06:47] LABS: Basophils # (auto) 0.04 K/uL (0-0.2); Basophils % (auto) 0.5 %; Eosinophils # (auto) 0.34 K/uL (0-0.50); Hematocrit (blood only) 36.1 % (40.1-51.0); Hemoglobin 12.1 g/dl (14.0-18.0); Immature Granulocytes # (auto) 0.06 K/uL (0.00-0.02); Immature Granulocytes % (auto) 0.7 %; Lymphocytes # (auto) 0.87 K/uL (1.2-3.4); Lymphocytes % (auto) 10.2 %; Mean Corpuscular Hgb Conc 33.5 g/dL (32.0-36.0); Mean Corpuscular Volume 92.6 fL (80.0-100.0); Mean Platelet Volume 9.5 fL (9.4-12.4); Monocytes # (auto) 0.77 K/uL (0.24-0.82); Neutrophils # (auto) 6.45 K/uL (1.4-6.5); Neutrophils % (auto) 75.6 %; Platelet Count 381 K/uL (130-400); RDW Coefficient of Variation 12.3 % (11.5-14.5); RDW Standard Deviation 41.6 fL (36.4-46.3); White Blood Count 8.53 K/ul (4.8-10.8)
[2022-04-06 07:13] LABS: Albumin Globulin Ratio 0.8 (0.9-2); Albumin Level 3.4 gm/dl (3.4-5.0); Bilirubin,Total 0.6 mg/dl (0.2-1.0); Calcium 9.1 mg/dl (8.5-10.1); Creatinine Clr Calc Pharmacy 95.8 ml/min; Est GFR (African American) 86.5 ml/min; Est GFR (Non-African American) 74.7 ml/min; Globulin 4.1 gm/dl (2.5-4.0); Potassium 4.8 mmol/L (3.5-5.1); Total Protein 7.5 gm/dl (6.0-8.3)
[2022-04-06] MEDS: ACETAMINOPHEN 325 MG TAB PO PRN ×2 (07:26→12:54)
--- NOTE | 2022-04-06 08:09 | Urology Progress Note ---
Date of Service April 06, 2022 Assessment & Plan (1) Epididymoorchitis: (2) Cellulitis, scrotum: Plan Continues to improve, now on Augmentin and Bactrim. Remains afebrile. WBC increased to 18.82 yesterday, but back down to 8.53 today. Still no clear collection that necessitates incision and drainage. Continue antibiotics and supportive care. Will closely follow. Admission and Anticipated Discharge Date Admission Date: March 25, 2022 Subjective Subjectively doing well, no fevers or chills. Feels that scrotal pain is improving. Still some weeping from wound, but less overnight. No nausea or vomiting. Voiding without difficulty, no dysuria or hematuria. Review of Systems Constitutional: as per Subjective / HPI Gastrointestinal: as per Subjective / HPI Genitourinary: + as per Subjective / HPI Physical Exam Constitutional: + obese; no acute distress Respiratory: no respiratory distress and no labored breathing Psychiatric: Orientation: alert and oriented x 3 Genitourinary: Edema, erythema and tenderness of the scrotum continues to improve, less induration. Eschar present over the left dependent/anterior portion of the scrotum, on the inferior portion there is some sloughing and drainage of some serous, mildly purulent material diffusely. No crepitus. Results & Data ([facility]) Vital Signs (Past 12 Hours) Vital Signs Temp Pulse Resp BP Pulse Ox O2 Del Method 04/06/22 07:53 36.5 C 73 18 159/83 H 96 Room Air 04/05/22 23:12 36.5 C 76 18 146/75 H 96 Room Air PG Care Time/CCT Total # of Minutes Spent Total Time Spent with Patient: Total time spent is greater than 50% in coordination of care (as documented) at patient's floor/unit and/or counseling patient: Coding Level of Care Code 11109 Subseq Hosp Care Lvl 2 Diagnoses Epididymoorchitis N45.3 Cellulitis, scrotum N49.2
[2022-04-06] MEDS: INSULIN ASPART PER UNIT SC SCH ×4 (08:43→21:06)
[2022-04-06] MEDS: NYSTATIN POWDER 15GM BTL EXT SCH ×2 (08:44→20:30)
[2022-04-06] MEDS: LANTUS PER UNIT CHARGE SQ SCH ×2 (08:44→20:31)
[2022-04-06] MEDS: POTASSIUM CHLORIDE CRTAB 20 MEQ TABCR PO SCH (08:45)
[2022-04-06] MEDS: SULFAMETHOXAZOLE/TRIMETHOPRIM DS 800/160MG TAB PO SCH ×2 (08:45→20:29)
[2022-04-06] MEDS: LOSARTAN POTASSIUM 50 MG TAB PO SCH (08:45)
[2022-04-06] MEDS: AMOXICILLIN/CLAVULANATE 875 MG TAB PO SCH ×2 (08:46→17:37)
[2022-04-06] MEDS: ASPIRIN 81 MG ECTAB PO SCH (08:46)
--- NOTE | 2022-04-06 13:56 | Hospitalist Progress Note ---
Date of Service April 06, 2022 Assessment & Plan (1) Cellulitis, scrotum: Plan: 66-year-old male with PMH HTN, dyslipidemia, DM II, h/o perianal abscess presented to ER with complaint of scrotal erythema, edema and tenderness x 2 days. Patient noticed non-tender lump to distal left scrotum on 03/19/22. PCP f/u on 03/22/22 and was prescribed Bactrim. Took for 2 days. Denies fever/chills, vomiting, known trauma, penile discharge, urinary symptoms. +mild nausea. In ER afebrile, initial P: 115 down to 91, R: 18, BP 162/132 down to 161/80, 97% on room air. WBC: 17, lactate: WNL. Ultrasound scrotum: There is diffuse scrotal wall thickening consistent with the reported history of cellulitis. Question mild hyperemia of the right epididymis and both testes. Correlate clinically for evidence of epididymoorchitis. In ER given Zosyn, vancomycin, 500 mL NSS Blood cultures obtained after initial antibiotics given Scrotal cellulitis, possible epididymoorchitis Sepsis on admission Met sepsis criteria on admission with tachycardia, leucocytosis. procal 0.6 WBC elevated yesterday to 18 but down trended to 8.53 today. ESR and CRP both elevated. Urine clx negative, blood clx negative, MRSA screen negative S/p empiric IV ABx -> Per ID, continue levaquin 750 mg oral daily through 04/09 and continue oral vanc q6hr until 04/12. Qtc is 495; reached out to ID on 04/04 if there are any other alternatives.Recommended Bacrim DS and amox/Clav 875mg twice daily. Urology following- recommendations noted. Continue to follow closely. If there is any spike of fever; switch to IV antibiotics and possible imaging. (2) Abnormal ultrasound: Plan: Scrotum US: A 3 mm indeterminant hypoechoic nodule is identified in the right testis. A small testicular neoplasm is not excluded. Nonemergent follow-up with urology is recommended, as is a precautionary 3-4 month follow-up scrotal ultrasound. Urology already following (3) Hyponatremia: Plan: Resolved (4) Diabetes mellitus, type II: Plan: A1c: 7.9 on 03/01/2022 On Trulicity every sunday at home BG well controlled on current basal bolus regimen- will continue- adjust as indicated (5) HTN (hypertension): Plan: Gets cough with lisinopril and hence discontinued. started on losartan instead Cough resolved Plan DVT ppx- sc lovenox Dispo- Recommend to closely follow for now. Admission and Anticipated Discharge Date Admission Date: March 25, 2022 Subjective Is comfortably lying down on the bed. He complains of tightening in his scrotal region. He denies any fever or chills. Review of Systems Review of Systems: All systems reviewed & are unremarkable except as noted in Subjective Physical Exam Physical Exam: General: Morbidly obese, sitting comfortably in bed, not in distress, on room air HEENT: EOMI, PERRL, MMM Chest: Clear breath sounds bilaterally, no wheezes or crackles CVS: regular, normal heart sounds, no murmur Abdomen: Soft, non tender, not distended, normal bowel sounds Neuro: Awake, alert, oriented, conversing well, non focal Extremities: No edema : scrotal cellulitis with erythema, tenderness and swelling noted. Eschar present over left testes. Seropurulent fluid draining on the left side. Results & Data Results & Data ([facility]) Vital Signs (Past 12 Hours) Vital Signs Temp Pulse Resp BP Pulse Ox O2 Del Method 04/06/22 07:53 36.5 C 73 18 159/83 H 96 Room Air Diagnostic Findings Laboratory Results WBC 8.53 K/ul (4.8-10.8) 04/06/22 05:40 RBC 3.90 M/uL (4.63-6.08) L 04/06/22 05:40 Hgb 12.1 g/dl (14.0-18.0) L 04/06/22 05:40 Hct 36.1 % (40.1-51.0) L 04/06/22 05:40 MCV 92.6 fL (80.0-100.0) 04/06/22 05:40 MCH 31.0 pg (25.0-34.0) 04/06/22 05:40 MCHC 33.5 g/dL (32.0-36.0) 04/06/22 05:40 RDW Std Deviation 41.6 fL (36.4-46.3) 04/06/22 05:40 RDW Coeff of Robert 12.3 % (11.5-14.5) 04/06/22 05:40 Plt Count 381 K/uL (130-400) 04/06/22 05:40 MPV 9.5 fL (9.4-12.4) 04/06/22 05:40 Immature Gran % (Auto) 0.7 % 04/06/22 05:40 Neut % (Auto) 75.6 % 04/06/22 05:40 Lymph % (Auto) 10.2 % 04/06/22 05:40 [place] % (Auto) 9.0 % 04/06/22 05:40 Eos % (Auto) 4.0 % 04/06/22 05:40 Baso % (Auto) 0.5 % 04/06/22 05:40 Neut # (Auto) 6.45 K/uL (1.4-6.5) 04/06/22 05:40 Lymph # (Auto) 0.87 K/uL (1.2-3.4) L 04/06/22 05:40 [place] # (Auto) 0.77 K/uL (0.24-0.82) 04/06/22 05:40 Eos # (Auto) 0.34 K/uL (0-0.50) 04/06/22 05:40 Baso # (Auto) 0.04 K/uL (0-0.2) 04/06/22 05:40 Immature Gran # (Auto) 0.06 K/uL (0.00-0.02) H 04/06/22 05:40 ESR 97 mm/hr (0-20) H 04/05/22 05:28 Sodium 133 mmol/L (136-145) L 04/06/22 05:40 Potassium 4.8 mmol/L (3.5-5.1) 04/06/22 05:40 Chloride 101 mmol/L (98-107) 04/06/22 05:40 Carbon Dioxide 26 mmol/L (21-32) 04/06/22 05:40 Anion Gap 6 (3-11) 04/06/22 05:40 BUN 20 mg/dl (6-23) 04/06/22 05:40 Creatinine 1.05 mg/dl (0.6-1.4) 04/06/22 05:40 Est Cr Clr Drug Dosing 95.8 ml/min 04/06/22 05:40 Est GFR ( Amer) 86.5 ml/min 04/06/22 05:40 Est GFR (Non-Af Amer) 74.7 ml/min 04/06/22 05:40 BUN/Creatinine Ratio 19.0 (10-20) 04/06/22 05:40 Glucose 125 mg/dl (70-99(Fasting)) H 04/06/22 05:40 POC Glucose 177 mg/dl (70-99) H 04/06/22 11:34 Lactate 0.9 mmol/L (0.4-2.0) 03/25/22 08:29 Calcium 9.1 mg/dl (8.5-10.1) 04/06/22 05:40 Phosphorus 2.6 mg/dl (2.5-4.9) 03/27/22 07:17 Magnesium 1.9 mg/dl (1.7-2.4) 03/27/22 07:17 Total Bilirubin 0.6 mg/dl (0.2-1.0) 04/06/22 05:40 AST 32 U/L (13-39) 04/06/22 05:40 ALT 39 U/L (7-52) 04/06/22 05:40 Alkaline Phosphatase 54 U/L (34-104) 04/06/22 05:40 C-Reactive Protein 1.41 mg/dl (0-0.5) H 04/05/22 05:28 Total Protein 7.5 gm/dl (6.0-8.3) 04/06/22 05:40 Albumin 3.4 gm/dl (3.4-5.0) 04/06/22 05:40 Globulin 4.1 gm/dl (2.5-4.0) H 04/06/22 05:40 Albumin/Globulin Ratio 0.8 (0.9-2) L 04/06/22 05:40 Procalcitonin 0.60 ng/ml (0-0.5) H 03/27/22 07:17 Urine Color Yellow 03/27/22 03:00 Urine Appearance Clear (Clear) 03/27/22 03:00 Urine pH 5.5 (4.5-7.5) 03/27/22 03:00 Ur Specific [place] 1.023 (1.000-1.030) 03/27/22 03:00 Urine Protein 1+ (Negative) H 03/27/22 03:00 Urine Glucose (UA) Trace (Negative) H 03/27/22 03:00 Urine Ketones 1+ (Negative) H 03/27/22 03:00 Urine Blood Negative (Negative) 03/27/22 03:00 Urine Nitrite Negative (Negative) 03/27/22 03:00 Urine Bilirubin Negative (Negative) 03/27/22 03:00 Urine Urobilinogen Negative (Negative) 03/27/22 03:00 Ur Leukocyte Esterase Negative (Negative) 03/27/22 03:00 Urine WBC (Auto) 1-5 /hpf (0-5) 03/27/22 03:00 Urine RBC (Auto) 0-4 /hpf (0-4) 03/27/22 03:00 U Hyaline Cast (Auto) 0 /lpf (0-5) 03/27/22 03:00 U Epithel Cells (Auto) 5-10 /lpf (0-5) H 03/27/22 03:00 Urine Bacteria (Auto) 1+ (Negative) H 03/27/22 03:00 Urine Yeast Not Reportable 03/27/22 03:00 Nasal Screen MRSA (PCR) Negative (Negative) 03/27/22 03:00 Stl C. diff Tox B Gene Positive Cdiff Gene (Neg) H 03/28/22 10:44 Stl C.difficile Tox A&B Negative Cdiff Toxin (Negative) 03/28/22 10:44 SARS-CoV-2, RNA, NAAT NEGATIVE (NEGATIVE) 03/25/22 09:30 Impressions Scrotum Ultrasound 03/25/22 08:22 ULTRASOUND TESTES AND SCROTUM CLINICAL HISTORY: Scrotal cellulitis. COMPARISON STUDY: No priors. TECHNIQUE: Real-time, grayscale, and color Doppler sonography of the testes and scrotum is performed. Images are reviewed in the transverse and longitudinal planes. FINDINGS: The testes are normal in size and homogeneous in echotexture. The right testis measures 3.8 x 2.1 x 2.9 cm and the left testis measures 3.9 x 2.3 by cm. A 3 mm hypoechoic nodule is noted in the right testis. No flow was shown within this nodule. Question mild hyperemia of the testes. Normal Doppler waveforms are identified in both testes. The right epididymal head is heterogeneous and hyperemic. A 12 mm epididymal head cyst is noted on the right. Left epididymal head cysts measure up to 5 mm. There is diffuse scrotal wall thickening. No varicocele or hydrocele is seen. IMPRESSION: 1. There is diffuse scrotal wall thickening consistent with the reported history of cellulitis. Clinical correlation will be required. 2. A 3 mm indeterminant hypoechoic nodule is identified in the right testis. A small testicular neoplasm is not excluded. Nonemergent follow-up with urology is recommended, as is a precautionary 3-4 month follow-up scrotal ultrasound. 3. Question mild hyperemia of the right epididymis and both testes. Correlate clinically for evidence of epididymoorchitis. ACT 112: Negative or not required by law. Electronically signed by: Atilio Moreau M.D. 03/25/2022 9:[address] 04/03/22 07:28 CT pelvis wo con HISTORY: Scrotal swelling. scrotal abscess? please scan through scrotum TECHNIQUE: Multiaxial CT images of the pelvis are performed without the use of intravenous contrast. Sagittal coronal reformations were performed at the workstation by the radiologist. COMPARISON STUDY: Abdomen and pelvis CT 01/02/2018. FINDINGS: Small fat-containing left inguinal hernia. Mild bilateral inguinal lymphadenopathy which may be reactive. There is subcutaneous edema/fat stranding at the base of the penis. There is extensive diffuse scrotal thickening/edema most pronounced on the left. A loculated fluid collection/abscess with be difficult to exclude on this noncontrast study but is not clearly identified. Therefore, follow-up ultrasound recommended to exclude the possibility of underlying abscess. No subcutaneous gas identified in the scrotum. There is also mild bilateral external iliac lymphadenopathy. The visualized loops of bowel show no wall thickening or obstruction. Normal appendix. Colonic diverticulosis. No evidence for acute diverticulitis. The prostate gland is normal in size. The bladder is unremarkable. Tiny fat-containing umbilical hernia. No pelvic free fluid. Degenerative changes within the lumbar spine. No fractures identified within the pelvis. Trace bilateral hydroceles are noted. IMPRESSION: There is extensive diffuse scrotal thickening/edema most pronounced on the left. A loculated fluid collection/abscess with be difficult to exclude on this noncontrast study but is not clearly identified. Therefore, follow-up ultrasound can be performed to exclude the possibility of underlying abscess. ACT 112: Negative or not required by law. Electronically signed by: Chino Fuentes M.D. 04/03/2022 10:26 AM
[2022-04-06] MEDS: ENOXAPARIN INJ 40 MG/0.4 ML SYR SQ SCH (17:37)
[2022-04-06] MEDS: traMADol HCL 50 MG TABLET PO PRN (20:28)
[2022-04-07] MEDS: RASPBERRY SYRUP 5 ML UDP PO SCH ×5 (00:21→23:17)
[2022-04-07] MEDS: VANCOMYCIN HCL 125 MG/2.5ML SOLN PO SCH ×5 (00:22→23:17)
[2022-04-07] MEDS: CHLORPHENIRAMINE PO SCH ×7 (00:23→23:17)
[2022-04-07 06:16] LABS: Basophils # (auto) 0.06 K/uL (0-0.2); Basophils % (auto) 0.8 %; Eosinophils # (auto) 0.31 K/uL (0-0.50); Hematocrit (blood only) 39.5 % (40.1-51.0); Hemoglobin 13.1 g/dl (14.0-18.0); Immature Granulocytes # (auto) 0.05 K/uL (0.00-0.02); Immature Granulocytes % (auto) 0.6 %; Lymphocytes # (auto) 1.02 K/uL (1.2-3.4); Lymphocytes % (auto) 13.1 %; Mean Corpuscular Hgb Conc 33.2 g/dL (32.0-36.0); Mean Corpuscular Volume 93.4 fL (80.0-100.0); Mean Platelet Volume 9.2 fL (9.4-12.4); Monocytes # (auto) 0.73 K/uL (0.24-0.82); Monocytes % (auto) 9.3 %; Neutrophils # (auto) 5.64 K/uL (1.4-6.5); Neutrophils % (auto) 72.2 %; Platelet Count 430 K/uL (130-400); RDW Coefficient of Variation 12.4 % (11.5-14.5); RDW Standard Deviation 41.8 fL (36.4-46.3); Red Blood Count 4.23 M/uL (4.63-6.08); White Blood Count 7.81 K/ul (4.8-10.8)
[2022-04-07 06:42] LABS: Albumin Globulin Ratio 0.9 (0.9-2); Albumin Level 3.7 gm/dl (3.4-5.0); BUN Creatinine Ratio 17.6 (10-20); Bilirubin,Total 0.6 mg/dl (0.2-1.0); Calcium 9.5 mg/dl (8.5-10.1); Creatinine Clr Calc Pharmacy 93.1 ml/min; Est GFR (African American) 83.6 ml/min; Est GFR (Non-African American) 72.2 ml/min; Globulin 4.3 gm/dl (2.5-4.0); Potassium 4.7 mmol/L (3.5-5.1)
[2022-04-07] MEDS: LANTUS PER UNIT CHARGE SQ SCH ×2 (08:00→21:15)
[2022-04-07] MEDS: INSULIN ASPART PER UNIT SC SCH ×4 (08:00→21:14)
[2022-04-07] MEDS: SULFAMETHOXAZOLE/TRIMETHOPRIM DS 800/160MG TAB PO SCH (08:07)
[2022-04-07] MEDS: AMOXICILLIN/CLAVULANATE 875 MG TAB PO SCH (08:07)
[2022-04-07] MEDS: LOSARTAN POTASSIUM 50 MG TAB PO SCH (08:07)
[2022-04-07] MEDS: ASPIRIN 81 MG ECTAB PO SCH (08:07)
[2022-04-07] MEDS: POTASSIUM CHLORIDE CRTAB 20 MEQ TABCR PO SCH (08:07)
[2022-04-07] MEDS: NYSTATIN POWDER 15GM BTL EXT SCH ×2 (08:07→21:15)
--- NOTE | 2022-04-07 10:19 | Urology Progress Note ---
Date of Service April 07, 2022 Assessment & Plan (1) Cellulitis, scrotum: Plan Plan of care reviewed with Dr. Kingsley, urologist data reduction technician. Pt continues to slowly improve. Remains afebrile. WBC stable. Currently on PO Augmentin and Bactrim per ID. No definite collection that necessitates incision and drainage. From surgical standpoint he can be discharged when medically stable per hospitalists and ID. Patient will need close follow-up with ID and wound care management. Continue antibiotics and supportive care. Will arrange outpatient follow-up with our service. will sign off. Admission and Anticipated Discharge Date Admission Date: March 25, 2022 Subjective Subjectively continues to do well. Scrotal pain improving. Notes discomfort only when going to the bathroom/BM, but otherwise comfortable. Notes some tightening in scrotum. Continues to have some weeping from wound, but less. Voiding without difficulty. No fever or chills. No nausea or vomiting. Review of Systems Constitutional: as per Subjective / HPI Gastrointestinal: as per Subjective / HPI Genitourinary: + as per Subjective / HPI Physical Exam Constitutional: + obese; no acute distress Respiratory: no respiratory distress and no labored breathing Gastrointestinal (Abdomen): Inspection/Auscultation: abdomen not distended Neurologic: moves all extremities and awake Psychiatric: Orientation: alert and oriented x 3 Genitourinary: Edema, erythema and tenderness of the scrotum continues to improve. No tenderness in groin. Eschar present over the left dependent/anterior portion of the scrotum is unchanged, on the inferior portion there is some sloughing and drainage of some serous, mildly purulent material diffusely. No crepitus. Results & Data ([facility]) Vital Signs (Past 12 Hours) Vital Signs Temp Pulse Resp BP Pulse Ox O2 Del Method 04/07/22 07:30 36.8 C 75 20 110/76 97 Room Air 04/07/22 03:28 36.4 C L 74 18 149/87 H 95 Room Air 04/06/22 23:09 36.7 C 70 18 143/81 H 94 Room Air PG Care Time/CCT Total # of Minutes Spent Total Time Spent with Patient: Total time spent is greater than 50% in coordination of care (as documented) at patient's floor/unit and/or counseling patient: Coding Level of Care Code 07905 Subseq Hosp Care Lvl 2 Diagnoses Cellulitis, scrotum N49.2
--- NOTE | 2022-04-07 13:06 | Hospitalist Progress Note ---
Date of Service April 07, 2022 Assessment & Plan (1) Cellulitis, scrotum: Plan: 66-year-old male with PMH HTN, dyslipidemia, DM II, h/o perianal abscess presented to ER with complaint of scrotal erythema, edema and tenderness x 2 days. Patient noticed non-tender lump to distal left scrotum on 03/19/22. PCP f/u on 03/22/22 and was prescribed Bactrim. Took for 2 days. Denies fever/chills, vomiting, known trauma, penile discharge, urinary symptoms. +mild nausea. In ER afebrile, initial P: 115 down to 91, R: 18, BP 162/132 down to 161/80, 97% on room air. WBC: 17, lactate: WNL. Ultrasound scrotum: There is diffuse scrotal wall thickening consistent with the reported history of cellulitis. Question mild hyperemia of the right epididymis and both testes. Correlate clinically for evidence of epididymoorchitis. In ER given Zosyn, vancomycin, 500 mL NSS Blood cultures obtained after initial antibiotics given Scrotal cellulitis, possible epididymoorchitis Sepsis on admission Met sepsis criteria on admission with tachycardia, leucocytosis. procal 0.6 WBC downtrended. ESR and CRP both elevated. Urine clx negative, blood clx negative, MRSA screen negative Plan: Patient continues to have swelling, erythema and purulent discharge from the scrotum. He also has a black eschar in the scrotum. Patient feels that he is unable to manage the wound at home. We will switch his antibiotics to IV form with ceftriaxone and daptomycin. We will see clinical response with IV antibiotics. If patient continues to do well with the IV antibiotics; will switch him over to Augmentin and Bactrim at discharge. Urology following- recommendations noted. No surgical indication at this point. Recommended wound care and antibiotics. Signed off. (2) Abnormal ultrasound: (3) Hyponatremia: Plan: Resolved (4) Diabetes mellitus, type II: Plan: A1c: 7.9 on 03/01/2022 On Trulicity every sunday at home BG well controlled on current basal bolus regimen- will continue- adjust as indicated (5) HTN (hypertension): Plan: Gets cough with lisinopril and hence discontinued. started on losartan instead Cough resolved Plan DVT ppx- sc lovenox Dispo-he continues to have erythema, swelling over his scrotum. Switched over to IV antibiotics today. Needs to be closely followed for improvement. Likely discharge after the weekend. Admission and Anticipated Discharge Date Admission Date: March 25, 2022 Subjective Patient seen and examined at bedside. He continues to have drainage from his scrotal region. He complains of pain on movement. He is able to urinate without any difficulty. Review of Systems Review of Systems: All systems reviewed & are unremarkable except as noted in Subjective Physical Exam Physical Exam: General: Morbidly obese, sitting comfortably in bed, not in distress, on room air HEENT: EOMI, PERRL, MMM Chest: Clear breath sounds bilaterally, no wheezes or crackles CVS: regular, normal heart sounds, no murmur Abdomen: Soft, non tender, not distended, normal bowel sounds Neuro: Awake, alert, oriented, conversing well, non focal Extremities: No edema : scrotal cellulitis with erythema, tenderness and swelling noted. Black eschar present over his left scrotum. Seropurulent drainage present on the side of his scrotum. Results & Data Results & Data ([facility]) Vital Signs (Past 12 Hours) Vital Signs Temp Pulse Resp BP Pulse Ox O2 Del Method 04/07/22 07:30 36.8 C 75 20 110/76 97 Room Air 04/07/22 03:28 36.4 C L 74 18 149/87 H 95 Room Air Diagnostic Findings Laboratory Results WBC 7.81 K/ul (4.8-10.8) 04/07/22 05:36 RBC 4.23 M/uL (4.63-6.08) L 04/07/22 05:36 Hgb 13.1 g/dl (14.0-18.0) L 04/07/22 05:36 Hct 39.5 % (40.1-51.0) L 04/07/22 05:36 MCV 93.4 fL (80.0-100.0) 04/07/22 05:36 MCH 31.0 pg (25.0-34.0) 04/07/22 05:36 MCHC 33.2 g/dL (32.0-36.0) 04/07/22 05:36 RDW Std Deviation 41.8 fL (36.4-46.3) 04/07/22 05:36 RDW Coeff of [place] 12.4 % (11.5-14.5) 04/07/22 05:36 Plt Count 430 K/uL (130-400) H 04/07/22 05:36 MPV 9.2 fL (9.4-12.4) L 04/07/22 05:36 Immature Gran % (Auto) 0.6 % 04/07/22 05:36 Neut % (Auto) 72.2 % 04/07/22 05:36 Lymph % (Auto) 13.1 % 04/07/22 05:36 [place] % (Auto) 9.3 % 04/07/22 05:36 Eos % (Auto) 4.0 % 04/07/22 05:36 Baso % (Auto) 0.8 % 04/07/22 05:36 Neut # (Auto) 5.64 K/uL (1.4-6.5) 04/07/22 05:36 Lymph # (Auto) 1.02 K/uL (1.2-3.4) L 04/07/22 05:36 [place] # (Auto) 0.73 K/uL (0.24-0.82) 04/07/22 05:36 Eos # (Auto) 0.31 K/uL (0-0.50) 04/07/22 05:36 Baso # (Auto) 0.06 K/uL (0-0.2) 04/07/22 05:36 Immature Gran # (Auto) 0.05 K/uL (0.00-0.02) H 04/07/22 05:36 ESR 97 mm/hr (0-20) H 04/05/22 05:28 Sodium 133 mmol/L (136-145) L 04/07/22 05:36 Potassium 4.7 mmol/L (3.5-5.1) 04/07/22 05:36 Chloride 100 mmol/L (98-107) 04/07/22 05:36 Carbon Dioxide 27 mmol/L (21-32) 04/07/22 05:36 Anion Gap 6 (3-11) 04/07/22 05:36 BUN 19 mg/dl (6-23) 04/07/22 05:36 Creatinine 1.08 mg/dl (0.6-1.4) 04/07/22 05:36 Est Cr Clr Drug Dosing 93.1 ml/min 04/07/22 05:36 Est GFR ( Amer) 83.6 ml/min 04/07/22 05:36 Est GFR (Non-Af Amer) 72.2 ml/min 04/07/22 05:36 BUN/Creatinine Ratio 17.6 (10-20) 04/07/22 05:36 Glucose 130 mg/dl (70-99(Fasting)) H 04/07/22 05:36 POC Glucose 123 mg/dl (70-99) H 04/07/22 11:20 Lactate 0.9 mmol/L (0.4-2.0) 03/25/22 08:29 Calcium 9.5 mg/dl (8.5-10.1) 04/07/22 05:36 Phosphorus 2.6 mg/dl (2.5-4.9) 03/27/22 07:17 Magnesium 1.9 mg/dl (1.7-2.4) 03/27/22 07:17 Total Bilirubin 0.6 mg/dl (0.2-1.0) 04/07/22 05:36 AST 26 U/L (13-39) 04/07/22 05:36 ALT 42 U/L (7-52) 04/07/22 05:36 Alkaline Phosphatase 57 U/L (34-104) 04/07/22 05:36 C-Reactive Protein 1.41 mg/dl (0-0.5) H 04/05/22 05:28 Total Protein 8.0 gm/dl (6.0-8.3) 04/07/22 05:36 Albumin 3.7 gm/dl (3.4-5.0) 04/07/22 05:36 Globulin 4.3 gm/dl (2.5-4.0) H 04/07/22 05:36 Albumin/Globulin Ratio 0.9 (0.9-2) 04/07/22 05:36 Procalcitonin 0.60 ng/ml (0-0.5) H 03/27/22 07:17 Urine Color Yellow 03/27/22 03:00 Urine Appearance Clear (Clear) 03/27/22 03:00 Urine pH 5.5 (4.5-7.5) 03/27/22 03:00 Ur Specific [place] 1.023 (1.000-1.030) 03/27/22 03:00 Urine Protein 1+ (Negative) H 03/27/22 03:00 Urine Glucose (UA) Trace (Negative) H 03/27/22 03:00 Urine Ketones 1+ (Negative) H 03/27/22 03:00 Urine Blood Negative (Negative) 03/27/22 03:00 Urine Nitrite Negative (Negative) 03/27/22 03:00 Urine Bilirubin Negative (Negative) 03/27/22 03:00 Urine Urobilinogen Negative (Negative) 03/27/22 03:00 Ur Leukocyte Esterase Negative (Negative) 03/27/22 03:00 Urine WBC (Auto) 1-5 /hpf (0-5) 03/27/22 03:00 Urine RBC (Auto) 0-4 /hpf (0-4) 03/27/22 03:00 U Hyaline Cast (Auto) 0 /lpf (0-5) 03/27/22 03:00 U Epithel Cells (Auto) 5-10 /lpf (0-5) H 03/27/22 03:00 Urine Bacteria (Auto) 1+ (Negative) H 03/27/22 03:00 Urine Yeast Not Reportable 03/27/22 03:00 Nasal Screen MRSA (PCR) Negative (Negative) 03/27/22 03:00 Stl C. diff Tox B Gene Positive Cdiff Gene (Neg) H 03/28/22 10:44 Stl C.difficile Tox A&B Negative Cdiff Toxin (Negative) 03/28/22 10:44 SARS-CoV-2, RNA, NAAT NEGATIVE (NEGATIVE) 03/25/22 09:30 Impressions Scrotum Ultrasound 03/25/22 08:22 ULTRASOUND TESTES AND SCROTUM CLINICAL HISTORY: Scrotal cellulitis. COMPARISON STUDY: No priors. TECHNIQUE: Real-time, grayscale, and color Doppler sonography of the testes and scrotum is performed. Images are reviewed in the transverse and longitudinal planes. FINDINGS: The testes are normal in size and homogeneous in echotexture. The right testis measures 3.8 x 2.1 x 2.9 cm and the left testis measures 3.9 x 2.3 by cm. A 3 mm hypoechoic nodule is noted in the right testis. No flow was shown within this nodule. Question mild hyperemia of the testes. Normal Doppler waveforms are identified in both testes. The right epididymal head is heterogeneous and hyperemic. A 12 mm epididymal head cyst is noted on the right. Left epididymal head cysts measure up to 5 mm. There is diffuse scrotal wall thickening. No varicocele or hydrocele is seen. IMPRESSION: 1. There is diffuse scrotal wall thickening consistent with the reported history of cellulitis. Clinical correlation will be required. 2. A 3 mm indeterminant hypoechoic nodule is identified in the right testis. A small testicular neoplasm is not excluded. Nonemergent follow-up with urology is recommended, as is a precautionary 3-4 month follow-up scrotal ultrasound. 3. Question mild hyperemia of the right epididymis and both testes. Correlate clinically for evidence of epididymoorchitis. ACT 112: Negative or not required by law. Electronically signed by: Atilio Moreau M.D. 03/25/2022 9:[address] 04/03/22 07:28 CT pelvis wo con HISTORY: Scrotal swelling. scrotal abscess? please scan through scrotum TECHNIQUE: Multiaxial CT images of the pelvis are performed without the use of intravenous contrast. Sagittal coronal reformations were performed at the workstation by the radiologist. COMPARISON STUDY: Abdomen and pelvis CT 01/02/2018. FINDINGS: Small fat-containing left inguinal hernia. Mild bilateral inguinal lymphadenopathy which may be reactive. There is subcutaneous edema/fat stranding at the base of the penis. There is extensive diffuse scrotal thickening/edema most pronounced on the left. A loculated fluid collection/abscess with be difficult to exclude on this noncontrast study but is not clearly identified. Therefore, follow-up ultrasound recommended to exclude the possibility of underlying abscess. No subcutaneous gas identified in the scrotum. There is also mild bilateral external iliac lymphadenopathy. The visualized loops of bowel show no wall thickening or obstruction. Normal appendix. Colonic diverticulosis. No evidence for acute diverticulitis. The prostate gland is normal in size. The bladder is unremarkable. Tiny fat-containing umbilical hernia. No pelvic free fluid. Degenerative changes within the lumbar spine. No fractures identified within the pelvis. Trace bilateral hydroceles are noted. IMPRESSION: There is extensive diffuse scrotal thickening/edema most pronounced on the left. A loculated fluid collection/abscess with be difficult to exclude on this noncontrast study but is not clearly identified. Therefore, follow-up ultrasound can be performed to exclude the possibility of underlying abscess. ACT 112: Negative or not required by law. Electronically signed by: Chino Fuentes M.D. 04/03/2022 10:26 AM
[2022-04-07] MEDS: cefTRIAXone SODIUM 2,000 MG in DEXTROSE 5% 50 ML IV SCH (13:26)
[2022-04-07] MEDS: DAPTOmycin 575 MG in SYRINGE 0 ML IV SCH (13:26)
[2022-04-07] MEDS: ENOXAPARIN INJ 40 MG/0.4 ML SYR SQ SCH (17:16)
[2022-04-08] MEDS: CHLORPHENIRAMINE PO SCH ×3 (06:38→18:17)
[2022-04-08] MEDS: RASPBERRY SYRUP 5 ML UDP PO SCH ×3 (06:39→18:17)
[2022-04-08] MEDS: VANCOMYCIN HCL 125 MG/2.5ML SOLN PO SCH ×3 (06:39→18:22)
[2022-04-08 08:01] LABS: Basophils # (auto) 0.05 K/uL (0-0.2); Basophils % (auto) 0.8 %; Eosinophils # (auto) 0.24 K/uL (0-0.50); Eosinophils % (auto) 3.7 %; Hematocrit (blood only) 37.7 % (40.1-51.0); Hemoglobin 12.7 g/dl (14.0-18.0); Immature Granulocytes # (auto) 0.03 K/uL (0.00-0.02); Immature Granulocytes % (auto) 0.5 %; Lymphocytes # (auto) 0.95 K/uL (1.2-3.4); Lymphocytes % (auto) 14.7 %; Mean Corpuscular Hemoglobin 31.1 pg (25.0-34.0); Mean Corpuscular Hgb Conc 33.7 g/dL (32.0-36.0); Mean Corpuscular Volume 92.4 fL (80.0-100.0); Mean Platelet Volume 9.1 fL (9.4-12.4); Monocytes # (auto) 0.73 K/uL (0.24-0.82); Monocytes % (auto) 11.3 %; Neutrophils # (auto) 4.46 K/uL (1.4-6.5); Platelet Count 419 K/uL (130-400); RDW Coefficient of Variation 12.4 % (11.5-14.5); RDW Standard Deviation 41.9 fL (36.4-46.3); Red Blood Count 4.08 M/uL (4.63-6.08); White Blood Count 6.46 K/ul (4.8-10.8)
[2022-04-08 08:36] LABS: Albumin Globulin Ratio 0.9 (0.9-2); Albumin Level 3.7 gm/dl (3.4-5.0); BUN Creatinine Ratio 18.3 (10-20); Bilirubin,Total 0.8 mg/dl (0.2-1.0); Calcium 9.4 mg/dl (8.5-10.1); Creatinine Clr Calc Pharmacy 96.8 ml/min; Est GFR (African American) 87.5 ml/min; Est GFR (Non-African American) 75.5 ml/min; Globulin 4.1 gm/dl (2.5-4.0); Potassium 4.5 mmol/L (3.5-5.1); Total Protein 7.8 gm/dl (6.0-8.3)
[2022-04-08] MEDS: INSULIN ASPART PER UNIT SC SCH ×4 (09:23→21:12)
[2022-04-08] MEDS: ASPIRIN 81 MG ECTAB PO SCH (09:24)
[2022-04-08] MEDS: LOSARTAN POTASSIUM 50 MG TAB PO SCH (09:36)
[2022-04-08] MEDS: LANTUS PER UNIT CHARGE SQ SCH ×2 (09:37→21:12)
[2022-04-08] MEDS: POTASSIUM CHLORIDE CRTAB 20 MEQ TABCR PO SCH (09:39)
[2022-04-08] MEDS: NYSTATIN POWDER 15GM BTL EXT SCH ×2 (10:40→21:15)
[2022-04-08] MEDS: cefTRIAXone SODIUM 2,000 MG in DEXTROSE 5% 50 ML IV SCH (13:40)
--- NOTE | 2022-04-08 13:40 | Hospitalist Progress Note ---
Date of Service April 08, 2022 Assessment & Plan (1) Cellulitis, scrotum: Plan: 66-year-old male with PMH HTN, dyslipidemia, DM II, h/o perianal abscess presented to ER with complaint of scrotal erythema, edema and tenderness x 2 days. Patient noticed non-tender lump to distal left scrotum on 03/19/22. PCP f/u on 03/22/22 and was prescribed Bactrim. Took for 2 days. Denies fever/chills, vomiting, known trauma, penile discharge, urinary symptoms. +mild nausea. In ER afebrile, initial P: 115 down to 91, R: 18, BP 162/132 down to 161/80, 97% on room air. WBC: 17, lactate: WNL. Ultrasound scrotum: There is diffuse scrotal wall thickening consistent with the reported history of cellulitis. Question mild hyperemia of the right epididymis and both testes. Correlate clinically for evidence of epididymoorchitis. In ER given Zosyn, vancomycin, 500 mL NSS Blood cultures obtained after initial antibiotics given Scrotal cellulitis, possible epididymoorchitis Sepsis on admission Met sepsis criteria on admission with tachycardia, leucocytosis. procal 0.6 WBC downtrended. ESR and CRP both elevated. Urine clx negative, blood clx negative, MRSA screen negative Plan: Patient continues to have swelling, erythema and purulent discharge from the scrotum. He also has a black eschar in the scrotum. Patient feels that he is unable to manage the wound at home. Home health ordered. Continue on IV ceftriaxone and daptomycin. We will see clinical response with IV antibiotics. If patient continues to do well with the IV antibiotics; will switch him over to Augmentin and Bactrim at discharge. Urology following- recommendations noted. No surgical indication at this point. Recommended wound care and antibiotics. Signed off. (2) Abnormal ultrasound: (3) Hyponatremia: Plan: Na- 133 continue to monitor (4) Diabetes mellitus, type II: Plan: A1c: 7.9 on 03/01/2022 On Trulicity every sunday at home BG well controlled on current basal bolus regimen- will continue- adjust as indicated (5) HTN (hypertension): Plan: Gets cough with lisinopril and hence discontinued. Started on losartan 50mg, titrated upto 100mg. Plan DVT ppx- sc lovenox Dispo-he continues to have erythema, swelling over his scrotum. Switched over to IV antibiotics on 04/07 Needs to be closely followed for improvement. Likely discharge after the weekend. Admission and Anticipated Discharge Date Admission Date: March 25, 2022 Subjective Patient seen and examined at bedside. He states that pain has significantly improved compared to previous day. He feels that the soakage has also decreased compared to previous day. Is afebrile overnight. Review of Systems Review of Systems: All systems reviewed & are unremarkable except as noted in Subjective Physical Exam Physical Exam: General: Morbidly obese, sitting comfortably in bed, not in distress, on room air HEENT: EOMI, PERRL, MMM Chest: Clear breath sounds bilaterally, no wheezes or crackles CVS: regular, normal heart sounds, no murmur Abdomen: Soft, non tender, not distended, normal bowel sounds Neuro: Awake, alert, oriented, conversing well, non focal Extremities: No edema : scrotal cellulitis with erythema, tenderness and swelling noted. Black eschar present over his left scrotum. Seropurulent drainage slightly decreased from previous day. Results & Data Results & Data ([facility]) Vital Signs (Past 12 Hours) Vital Signs Temp Pulse Resp BP BP Pulse Ox O2 Del Method 04/08/22 07:38 36.7 C 71 16 155/89 H 96 Room Air 04/08/22 02:05 36.7 C 80 18 156/90 H 98 Room Air Diagnostic Findings Laboratory Results WBC 6.46 K/ul (4.8-10.8) 04/08/22 07:44 RBC 4.08 M/uL (4.63-6.08) L 04/08/22 07:44 Hgb 12.7 g/dl (14.0-18.0) L 04/08/22 07:44 Hct 37.7 % (40.1-51.0) L 04/08/22 07:44 MCV 92.4 fL (80.0-100.0) 04/08/22 07:44 MCH 31.1 pg (25.0-34.0) 04/08/22 07:44 MCHC 33.7 g/dL (32.0-36.0) 04/08/22 07:44 RDW Std Deviation 41.9 fL (36.4-46.3) 04/08/22 07:44 RDW Coeff of Robert 12.4 % (11.5-14.5) 04/08/22 07:44 Plt Count 419 K/uL (130-400) H 04/08/22 07:44 MPV 9.1 fL (9.4-12.4) L 04/08/22 07:44 Immature Gran % (Auto) 0.5 % 04/08/22 07:44 Neut % (Auto) 69.0 % 04/08/22 07:44 Lymph % (Auto) 14.7 % 04/08/22 07:44 [place] % (Auto) 11.3 % 04/08/22 07:44 Eos % (Auto) 3.7 % 04/08/22 07:44 Baso % (Auto) 0.8 % 04/08/22 07:44 Neut # (Auto) 4.46 K/uL (1.4-6.5) 04/08/22 07:44 Lymph # (Auto) 0.95 K/uL (1.2-3.4) L 04/08/22 07:44 [place] # (Auto) 0.73 K/uL (0.24-0.82) 04/08/22 07:44 Eos # (Auto) 0.24 K/uL (0-0.50) 04/08/22 07:44 Baso # (Auto) 0.05 K/uL (0-0.2) 04/08/22 07:44 Immature Gran # (Auto) 0.03 K/uL (0.00-0.02) H 04/08/22 07:44 ESR 97 mm/hr (0-20) H 04/05/22 05:28 Sodium 133 mmol/L (136-145) L 04/08/22 07:44 Potassium 4.5 mmol/L (3.5-5.1) 04/08/22 07:44 Chloride 101 mmol/L (98-107) 04/08/22 07:44 Carbon Dioxide 26 mmol/L (21-32) 04/08/22 07:44 Anion Gap 6 (3-11) 04/08/22 07:44 BUN 19 mg/dl (6-23) 04/08/22 07:44 Creatinine 1.04 mg/dl (0.6-1.4) 04/08/22 07:44 Est Cr Clr Drug Dosing 96.8 ml/min 04/08/22 07:44 Est GFR ( Amer) 87.5 ml/min 04/08/22 07:44 Est GFR (Non-Af Amer) 75.5 ml/min 04/08/22 07:44 BUN/Creatinine Ratio 18.3 (10-20) 04/08/22 07:44 Glucose 144 mg/dl (70-99(Fasting)) H 04/08/22 07:44 POC Glucose 131 mg/dl (70-99) H 04/08/22 12:12 Lactate 0.9 mmol/L (0.4-2.0) 03/25/22 08:29 Calcium 9.4 mg/dl (8.5-10.1) 04/08/22 07:44 Phosphorus 2.6 mg/dl (2.5-4.9) 03/27/22 07:17 Magnesium 1.9 mg/dl (1.7-2.4) 03/27/22 07:17 Total Bilirubin 0.8 mg/dl (0.2-1.0) 04/08/22 07:44 AST 21 U/L (13-39) 04/08/22 07:44 ALT 37 U/L (7-52) 04/08/22 07:44 Alkaline Phosphatase 58 U/L (34-104) 04/08/22 07:44 C-Reactive Protein 1.41 mg/dl (0-0.5) H 04/05/22 05:28 Total Protein 7.8 gm/dl (6.0-8.3) 04/08/22 07:44 Albumin 3.7 gm/dl (3.4-5.0) 04/08/22 07:44 Globulin 4.1 gm/dl (2.5-4.0) H 04/08/22 07:44 Albumin/Globulin Ratio 0.9 (0.9-2) 04/08/22 07:44 Procalcitonin 0.60 ng/ml (0-0.5) H 03/27/22 07:17 Urine Color Yellow 03/27/22 03:00 Urine Appearance Clear (Clear) 03/27/22 03:00 Urine pH 5.5 (4.5-7.5) 03/27/22 03:00 Ur Specific [place] 1.023 (1.000-1.030) 03/27/22 03:00 Urine Protein 1+ (Negative) H 03/27/22 03:00 Urine Glucose (UA) Trace (Negative) H 03/27/22 03:00 Urine Ketones 1+ (Negative) H 03/27/22 03:00 Urine Blood Negative (Negative) 03/27/22 03:00 Urine Nitrite Negative (Negative) 03/27/22 03:00 Urine Bilirubin Negative (Negative) 03/27/22 03:00 Urine Urobilinogen Negative (Negative) 03/27/22 03:00 Ur Leukocyte Esterase Negative (Negative) 03/27/22 03:00 Urine WBC (Auto) 1-5 /hpf (0-5) 03/27/22 03:00 Urine RBC (Auto) 0-4 /hpf (0-4) 03/27/22 03:00 U Hyaline Cast (Auto) 0 /lpf (0-5) 03/27/22 03:00 U Epithel Cells (Auto) 5-10 /lpf (0-5) H 03/27/22 03:00 Urine Bacteria (Auto) 1+ (Negative) H 03/27/22 03:00 Urine Yeast Not Reportable 03/27/22 03:00 Nasal Screen MRSA (PCR) Negative (Negative) 03/27/22 03:00 Stl C. diff Tox B Gene Positive Cdiff Gene (Neg) H 03/28/22 10:44 Stl C.difficile Tox A&B Negative Cdiff Toxin (Negative) 03/28/22 10:44 SARS-CoV-2, RNA, NAAT NEGATIVE (NEGATIVE) 03/25/22 09:30 Impressions Scrotum Ultrasound 03/25/22 08:22 ULTRASOUND TESTES AND SCROTUM CLINICAL HISTORY: Scrotal cellulitis. COMPARISON STUDY: No priors. TECHNIQUE: Real-time, grayscale, and color Doppler sonography of the testes and scrotum is performed. Images are reviewed in the transverse and longitudinal ella yolette. FINDINGS: The testes are normal in size and homogeneous in echotexture. The right testis measures 3.8 x 2.1 x 2.9 cm and the left testis measures 3.9 x 2.3 by cm. A 3 mm hypoechoic nodule is noted in the right testis. No flow was shown within this nodule. Question mild hyperemia of the testes. Normal Doppler waveforms are identified in both testes. The right epididymal head is heterogeneous and hyperemic. A 12 mm epididymal head cyst is noted on the right. Left epididymal head cysts measure up to 5 mm. There is diffuse scrotal wall thickening. No varicocele or hydrocele is seen. IMPRESSION: 1. There is diffuse scrotal wall thickening consistent with the reported history of cellulitis. Clinical correlation will be required. 2. A 3 mm indeterminant hypoechoic nodule is identified in the right testis. A small testicular neoplasm is not excluded. Nonemergent follow-up with urology is recommended, as is a precautionary 3-4 month follow-up scrotal ultrasound. 3. Question mild hyperemia of the right epididymis and both testes. Correlate clinically for evidence of epididymoorchitis. ACT 112: Negative or not required by law. Electronically signed by: Atilio Moreau M.D. 03/25/2022 9:[address] 04/03/22 07:28 CT pelvis wo con HISTORY: Scrotal swelling. scrotal abscess? please scan through scrotum TECHNIQUE: Multiaxial CT images of the pelvis are performed without the use of intravenous contrast. Sagittal coronal reformations were performed at the workstation by the radiologist. COMPARISON STUDY: Abdomen and pelvis CT 01/02/2018. FINDINGS: Small fat-containing left inguinal hernia. Mild bilateral inguinal lymphadenopathy which may be reactive. There is subcutaneous edema/fat stranding at the base of the penis. There is extensive diffuse scrotal thickening/edema most pronounced on the left. A loculated fluid collection/abscess with be difficult to exclude on this noncontrast study but is not clearly identified. Therefore, follow-up ultrasound recommended to exclude the possibility of underlying abscess. No subcutaneous gas identified in the scrotum. There is also mild bilateral external iliac lymphadenopathy. The visualized loops of bowel show no wall thickening or obstruction. Normal appendix. Colonic diverticulosis. No evidence for acute diverticulitis. The prostate gland is normal in size. The bladder is unremarkable. Tiny fat-containing umbilical hernia. No pelvic free fluid. Degenerative changes within the lumbar spine. No fractures identified within the pelvis. Trace bilateral hydroceles are noted. IMPRESSION: There is extensive diffuse scrotal thickening/edema most pronounced on the left. A loculated fluid collection/abscess with be difficult to exclude on this noncontrast study but is not clearly identified. Therefore, follow-up ultrasound can be performed to exclude the possibility of underlying abscess. ACT 112: Negative or not required by law. Electronically signed by: Chino Fuentes M.D. 04/03/2022 10:26 AM
[2022-04-08] MEDS: DAPTOmycin 575 MG in SYRINGE 0 ML IV SCH (13:41)
[2022-04-08] MEDS: ENOXAPARIN INJ 40 MG/0.4 ML SYR SQ SCH (18:15)
[2022-04-08] MEDS: ACETAMINOPHEN 325 MG TAB PO PRN (21:17)
[2022-04-09] MEDS: CHLORPHENIRAMINE PO SCH ×4 (00:12→17:47)
[2022-04-09] MEDS: RASPBERRY SYRUP 5 ML UDP PO SCH ×4 (00:12→17:47)
[2022-04-09] MEDS: VANCOMYCIN HCL 125 MG/2.5ML SOLN PO SCH ×4 (00:12→17:48)
[2022-04-09] MEDS: LOSARTAN POTASSIUM 50 MG TAB PO SCH (08:14)
[2022-04-09] MEDS: ASPIRIN 81 MG ECTAB PO SCH (08:14)
[2022-04-09] MEDS: POTASSIUM CHLORIDE CRTAB 20 MEQ TABCR PO SCH (08:15)
[2022-04-09] MEDS: NYSTATIN POWDER 15GM BTL EXT SCH ×2 (08:15→20:58)
[2022-04-09 08:35] LABS: Basophils # (auto) 0.06 K/uL (0-0.2); Basophils % (auto) 0.9 %; Eosinophils # (auto) 0.33 K/uL (0-0.50); Eosinophils % (auto) 4.8 %; Hematocrit (blood only) 38.5 % (40.1-51.0); Immature Granulocytes # (auto) 0.04 K/uL (0.00-0.02); Immature Granulocytes % (auto) 0.6 %; Lymphocytes # (auto) 1.49 K/uL (1.2-3.4); Lymphocytes % (auto) 21.9 %; Mean Corpuscular Hgb Conc 33.8 g/dL (32.0-36.0); Mean Corpuscular Volume 91.9 fL (80.0-100.0); Mean Platelet Volume 9.1 fL (9.4-12.4); Monocytes # (auto) 0.63 K/uL (0.24-0.82); Monocytes % (auto) 9.3 %; Neutrophils # (auto) 4.26 K/uL (1.4-6.5); Neutrophils % (auto) 62.5 %; Platelet Count 438 K/uL (130-400); RDW Coefficient of Variation 12.5 % (11.5-14.5); RDW Standard Deviation 41.5 fL (36.4-46.3); Red Blood Count 4.19 M/uL (4.63-6.08); White Blood Count 6.81 K/ul (4.8-10.8)
[2022-04-09] MEDS: LANTUS PER UNIT CHARGE SQ SCH ×2 (09:06→20:56)
[2022-04-09] MEDS: INSULIN ASPART PER UNIT SC SCH ×4 (09:07→20:56)
--- NOTE | 2022-04-09 12:55 | Hospitalist Progress Note ---
Date of Service April 09, 2022 Assessment & Plan (1) Cellulitis, scrotum: Plan: 66-year-old male with PMH HTN, dyslipidemia, DM II, h/o perianal abscess presented to ER with complaint of scrotal erythema, edema and tenderness x 2 days. Patient noticed non-tender lump to distal left scrotum on 03/19/22. PCP f/u on 03/22/22 and was prescribed Bactrim. Took for 2 days. Denies fever/chills, vomiting, known trauma, penile discharge, urinary symptoms. +mild nausea. In ER afebrile, initial P: 115 down to 91, R: 18, BP 162/132 down to 161/80, 97% on room air. WBC: 17, lactate: WNL. Ultrasound scrotum: There is diffuse scrotal wall thickening consistent with the reported history of cellulitis. Question mild hyperemia of the right epididymis and both testes. Correlate clinically for evidence of epididymoorchitis. In ER given Zosyn, vancomycin, 500 mL NSS Blood cultures obtained after initial antibiotics given Scrotal cellulitis, possible epididymoorchitis Sepsis on admission Met sepsis criteria on admission with tachycardia, leucocytosis. procal 0.6 WBC downtrended. ESR and CRP both elevated. Urine clx negative, blood clx negative, MRSA screen negative Plan: Patient continues to have swelling, erythema and purulent discharge from the scrotum. He also has a black eschar in the scrotum. Patient feels that he is unable to manage the wound at home. Home health ordered. Continue on IV ceftriaxone and daptomycin. We will see clinical response with IV antibiotics. If patient continues to do well with the IV antibiotics; will switch him over to Augmentin and Bactrim at discharge. Urology following- recommendations noted. No surgical indication at this point. Recommended wound care and antibiotics. Signed off. -Obtain ESR and CRP tomorrow (2) Abnormal ultrasound: (3) Hyponatremia: Plan: Na- 133 continue to monitor (4) Diabetes mellitus, type II: Plan: A1c: 7.9 on 03/01/2022 On Trulicity every sunday at home BG well controlled on current basal bolus regimen- will continue- adjust as indicated (5) HTN (hypertension): Plan: Gets cough with lisinopril and hence discontinued. Started on losartan 50mg, titrated upto 100mg. Nifedipine added as patient continues to be hypertensive. Plan DVT ppx- sc lovenox Dispo-he continues to have erythema, swelling over his scrotum. Switched over to IV antibiotics on 04/07 Needs to be closely followed for improvement. Likely discharge after the weekend. Admission and Anticipated Discharge Date Admission Date: March 25, 2022 Subjective Patient reports significant improvement in pain and mobility with IV antibiotics. He says he is able to urinate standing up which she had not been able to do before. Afebrile overnight. Review of Systems Review of Systems: All systems reviewed & are unremarkable except as noted in Subjective Physical Exam Physical Exam: General: Morbidly obese, sitting comfortably in bed, not in distress, on room air HEENT: EOMI, PERRL, MMM Chest: Clear breath sounds bilaterally, no wheezes or crackles CVS: regular, normal heart sounds, no murmur Abdomen: Soft, non tender, not distended, normal bowel sounds Neuro: Awake, alert, oriented, conversing well, non focal Extremities: No edema : scrotal cellulitis with erythema, tenderness and swelling noted. Black eschar present over his left scrotum. Seropurulent drainage slightly decreased from previous day. Overall erythema and swelling have decreased Results & Data Results & Data ([facility]) Vital Signs (Past 12 Hours) Vital Signs Temp Pulse Resp BP Pulse Ox O2 Del Method 04/09/22 08:09 36.9 C 85 16 171/95 H 95 Room Air Diagnostic Findings Laboratory Results WBC 6.81 K/ul (4.8-10.8) 04/09/22 08:05 RBC 4.19 M/uL (4.63-6.08) L 04/09/22 08:05 Hgb 13.0 g/dl (14.0-18.0) L 04/09/22 08:05 Hct 38.5 % (40.1-51.0) L 04/09/22 08:05 MCV 91.9 fL (80.0-100.0) 04/09/22 08:05 MCH 31.0 pg (25.0-34.0) 04/09/22 08:05 MCHC 33.8 g/dL (32.0-36.0) 04/09/22 08:05 RDW Std Deviation 41.5 fL (36.4-46.3) 04/09/22 08:05 RDW Coeff of Robert 12.5 % (11.5-14.5) 04/09/22 08:05 Plt Count 438 K/uL (130-400) H 04/09/22 08:05 MPV 9.1 fL (9.4-12.4) L 04/09/22 08:05 Immature Gran % (Auto) 0.6 % 04/09/22 08:05 Neut % (Auto) 62.5 % 04/09/22 08:05 Lymph % (Auto) 21.9 % 04/09/22 08:05 [place] % (Auto) 9.3 % 04/09/22 08:05 Eos % (Auto) 4.8 % 04/09/22 08:05 Baso % (Auto) 0.9 % 04/09/22 08:05 Neut # (Auto) 4.26 K/uL (1.4-6.5) 04/09/22 08:05 Lymph # (Auto) 1.49 K/uL (1.2-3.4) 04/09/22 08:05 [place] # (Auto) 0.63 K/uL (0.24-0.82) 04/09/22 08:05 Eos # (Auto) 0.33 K/uL (0-0.50) 04/09/22 08:05 Baso # (Auto) 0.06 K/uL (0-0.2) 04/09/22 08:05 Immature Gran # (Auto) 0.04 K/uL (0.00-0.02) H 04/09/22 08:05 ESR 97 mm/hr (0-20) H 04/05/22 05:28 Sodium 133 mmol/L (136-145) L 04/08/22 07:44 Potassium 4.5 mmol/L (3.5-5.1) 04/08/22 07:44 Chloride 101 mmol/L (98-107) 04/08/22 07:44 Carbon Dioxide 26 mmol/L (21-32) 04/08/22 07:44 Anion Gap 6 (3-11) 04/08/22 07:44 BUN 19 mg/dl (6-23) 04/08/22 07:44 Creatinine 1.04 mg/dl (0.6-1.4) 04/08/22 07:44 Est Cr Clr Drug Dosing 96.8 ml/min 04/08/22 07:44 Est GFR ( Amer) 87.5 ml/min 04/08/22 07:44 Est GFR (Non-Af Amer) 75.5 ml/min 04/08/22 07:44 BUN/Creatinine Ratio 18.3 (10-20) 04/08/22 07:44 Glucose 144 mg/dl (70-99(Fasting)) H 04/08/22 07:44 POC Glucose 140 mg/dl (70-99) H 04/09/22 12:27 Lactate 0.9 mmol/L (0.4-2.0) 03/25/22 08:29 Calcium 9.4 mg/dl (8.5-10.1) 04/08/22 07:44 Phosphorus 2.6 mg/dl (2.5-4.9) 03/27/22 07:17 Magnesium 1.9 mg/dl (1.7-2.4) 03/27/22 07:17 Total Bilirubin 0.8 mg/dl (0.2-1.0) 04/08/22 07:44 AST 21 U/L (13-39) 04/08/22 07:44 ALT 37 U/L (7-52) 04/08/22 07:44 Alkaline Phosphatase 58 U/L (34-104) 04/08/22 07:44 C-Reactive Protein 1.41 mg/dl (0-0.5) H 04/05/22 05:28 Total Protein 7.8 gm/dl (6.0-8.3) 04/08/22 07:44 Albumin 3.7 gm/dl (3.4-5.0) 04/08/22 07:44 Globulin 4.1 gm/dl (2.5-4.0) H 04/08/22 07:44 Albumin/Globulin Ratio 0.9 (0.9-2) 04/08/22 07:44 Procalcitonin 0.60 ng/ml (0-0.5) H 03/27/22 07:17 Urine Color Yellow 03/27/22 03:00 Urine Appearance Clear (Clear) 03/27/22 03:00 Urine pH 5.5 (4.5-7.5) 03/27/22 03:00 Ur Specific [place] 1.023 (1.000-1.030) 03/27/22 03:00 Urine Protein 1+ (Negative) H 03/27/22 03:00 Urine Glucose (UA) Trace (Negative) H 03/27/22 03:00 Urine Ketones 1+ (Negative) H 03/27/22 03:00 Urine Blood Negative (Negative) 03/27/22 03:00 Urine Nitrite Negative (Negative) 03/27/22 03:00 Urine Bilirubin Negative (Negative) 03/27/22 03:00 Urine Urobilinogen Negative (Negative) 03/27/22 03:00 Ur Leukocyte Esterase Negative (Negative) 03/27/22 03:00 Urine WBC (Auto) 1-5 /hpf (0-5) 03/27/22 03:00 Urine RBC (Auto) 0-4 /hpf (0-4) 03/27/22 03:00 U Hyaline Cast (Auto) 0 /lpf (0-5) 03/27/22 03:00 U Epithel Cells (Auto) 5-10 /lpf (0-5) H 03/27/22 03:00 Urine Bacteria (Auto) 1+ (Negative) H 03/27/22 03:00 Urine Yeast Not Reportable 03/27/22 03:00 Nasal Screen MRSA (PCR) Negative (Negative) 03/27/22 03:00 Stl C. diff Tox B Gene Positive Cdiff Gene (Neg) H 03/28/22 10:44 Stl C.difficile Tox A&B Negative Cdiff Toxin (Negative) 03/28/22 10:44 SARS-CoV-2, RNA, NAAT NEGATIVE (NEGATIVE) 03/25/22 09:30 Impressions Scrotum Ultrasound 03/25/22 08:22 ULTRASOUND TESTES AND SCROTUM CLINICAL HISTORY: Scrotal cellulitis. COMPARISON STUDY: No priors. TECHNIQUE: Real-time, grayscale, and color Doppler sonography of the testes and scrotum is performed. Images are reviewed in the transverse and longitudinal planes. FINDINGS: The testes are normal in size and homogeneous in echotexture. The right testis measures 3.8 x 2.1 x 2.9 cm and the left testis measures 3.9 x 2.3 by cm. A 3 mm hypoechoic nodule is noted in the right testis. No flow was shown within this nodule. Question mild hyperemia of the testes. Normal Doppler waveforms are identified in both testes. The right epididymal head is heterogeneous and hyperemic. A 12 mm epididymal head cyst is noted on the right. Left epididymal head cysts measure up to 5 mm. There is diffuse scrotal wall thickening. No varicocele or hydrocele is seen. IMPRESSION: 1. There is diffuse scrotal wall thickening consistent with the reported history of cellulitis. Clinical correlation will be required. 2. A 3 mm indeterminant hypoechoic nodule is identified in the right testis. A small testicular neoplasm is not excluded. Nonemergent follow-up with urology is recommended, as is a precautionary 3-4 month follow-up scrotal ultrasound. 3. Question mild hyperemia of the right epididymis and both testes. Correlate clinically for evidence of epididymoorchitis. ACT 112: Negative or not required by law. Electronically signed by: Atilio Moreau M.D. 03/25/2022 9:[address] 04/03/22 07:28 CT pelvis wo con HISTORY: Scrotal swelling. scrotal abscess? please scan through scrotum TECHNIQUE: Multiaxial CT images of the pelvis are performed without the use of intravenous contrast. Sagittal coronal reformations were performed at the workstation by the radiologist. COMPARISON STUDY: Abdomen and pelvis CT 01/02/2018. FINDINGS: Small fat-containing left inguinal hernia. Mild bilateral inguinal lymphadenopathy which may be reactive. There is subcutaneous edema/fat stranding at the base of the penis. There is extensive diffuse scrotal thickening/edema most pronounced on the left. A loculated fluid collection/abscess with be difficult to exclude on this noncontrast study but is not clearly identified. Therefore, follow-up ultrasound recommended to exclude the possibility of underlying abscess. No subcutaneous gas identified in the scrotum. There is also mild bilateral external iliac lymphadenopathy. The visualized loops of bowel show no wall thickening or obstruction. Normal appendix. Colonic diverticulosis. No evidence for acute diverticulitis. The prostate gland is normal in size. The bladder is unremarkable. Tiny fat-containing umbilical hernia. No pelvic free fluid. Degenerative changes within the lumbar spine. No fractures identified within the pelvis. Trace bilateral hydroceles are noted. IMPRESSION: There is extensive diffuse scrotal thickening/edema most pronounced on the left. A loculated fluid collection/abscess with be difficult to exclude on this noncontrast study but is not clearly identified. Therefore, follow-up ultrasound can be performed to exclude the possibility of underlying abscess. ACT 112: Negative or not required by law. Electronically signed by: Chino Fuentes M.D. 04/03/2022 10:26 AM
[2022-04-09] MEDS: cefTRIAXone SODIUM 2,000 MG in DEXTROSE 5% 50 ML IV SCH (13:08)
[2022-04-09] MEDS: DAPTOmycin 575 MG in SYRINGE 0 ML IV SCH (13:09)
[2022-04-09] MEDS: NIFEdipine EXTENDED REL 30 MG TABCR PO SCH (14:01)
[2022-04-09] MEDS: ENOXAPARIN INJ 40 MG/0.4 ML SYR SQ SCH (17:47)
[2022-04-09] MEDS: ACETAMINOPHEN 325 MG TAB PO PRN (17:52)
[2022-04-10] MEDS: CHLORPHENIRAMINE PO SCH ×5 (00:51→23:19)
[2022-04-10] MEDS: VANCOMYCIN HCL 125 MG/2.5ML SOLN PO SCH ×5 (00:52→23:20)
[2022-04-10] MEDS: RASPBERRY SYRUP 5 ML UDP PO SCH ×5 (00:52→23:20)
[2022-04-10 06:33] LABS: Hematocrit (blood only) 35.7 % (40.1-51.0); Hemoglobin 12.4 g/dl (14.0-18.0); Mean Corpuscular Hgb Conc 34.7 g/dL (32.0-36.0); Mean Platelet Volume 9.4 fL (9.4-12.4); Platelet Count 428 K/uL (130-400); RDW Coefficient of Variation 12.6 % (11.5-14.5); RDW Standard Deviation 41.5 fL (36.4-46.3); Red Blood Count 3.88 M/uL (4.63-6.08); White Blood Count 7.38 K/ul (4.8-10.8)
[2022-04-10 07:02] LABS: BUN Creatinine Ratio 19.8 (10-20); C Reactive Protein 0.52 mg/dl (0-0.5); Calcium 9.3 mg/dl (8.5-10.1); Creatinine Clr Calc Pharmacy 110.7 ml/min; Est GFR (African American) 102.9 ml/min; Est GFR (Non-African American) 88.8 ml/min; Potassium 4.3 mmol/L (3.5-5.1)
[2022-04-10] MEDS: NIFEdipine EXTENDED REL 30 MG TABCR PO SCH (07:58)
[2022-04-10] MEDS: ASPIRIN 81 MG ECTAB PO SCH (07:58)
[2022-04-10] MEDS: LOSARTAN POTASSIUM 50 MG TAB PO SCH (07:58)
[2022-04-10] MEDS: NYSTATIN POWDER 15GM BTL EXT SCH ×2 (07:59→21:07)
[2022-04-10] MEDS: POTASSIUM CHLORIDE CRTAB 20 MEQ TABCR PO SCH (08:02)
[2022-04-10] MEDS: INSULIN ASPART PER UNIT SC SCH ×4 (08:35→21:04)
[2022-04-10] MEDS: LANTUS PER UNIT CHARGE SQ SCH ×2 (08:36→21:07)
[2022-04-10] MEDS: traMADol HCL 50 MG TABLET PO PRN (12:53)
[2022-04-10] MEDS: cefTRIAXone SODIUM 2,000 MG in DEXTROSE 5% 50 ML IV SCH (13:01)
[2022-04-10] MEDS: DAPTOmycin 575 MG in SYRINGE 0 ML IV SCH (13:01)
--- NOTE | 2022-04-10 14:30 | Hospitalist Progress Note ---
Date of Service April 10, 2022 Assessment & Plan (1) Cellulitis, scrotum: Plan: 66-year-old male with PMH HTN, dyslipidemia, DM II, h/o perianal abscess presented to ER with complaint of scrotal erythema, edema and tenderness x 2 days. Patient noticed non-tender lump to distal left scrotum on 03/19/22. PCP f/u on 03/22/22 and was prescribed Bactrim. Took for 2 days. Denies fever/chills, vomiting, known trauma, penile discharge, urinary symptoms. +mild nausea. In ER afebrile, initial P: 115 down to 91, R: 18, BP 162/132 down to 161/80, 97% on room air. WBC: 17, lactate: WNL. Ultrasound scrotum: There is diffuse scrotal wall thickening consistent with the reported history of cellulitis. Question mild hyperemia of the right epididymis and both testes. Correlate clinically for evidence of epididymoorchitis. In ER given Zosyn, vancomycin, 500 mL NSS Blood cultures obtained after initial antibiotics given Scrotal cellulitis, possible epididymoorchitis Sepsis on admission Met sepsis criteria on admission with tachycardia, leucocytosis. procal 0.6 WBC downtrended. ESR and CRP both down trended compared to 5 days prior. CK within normal limits. Urine clx negative, blood clx negative, MRSA screen negative Plan: Patient continues to have swelling, erythema from the scrotum. He also has a black eschar in the scrotum. Patient feels that he is unable to manage the wound at home. [facility] home health accepted. Continue on IV ceftriaxone and daptomycin. We will see clinical response with IV antibiotics. If patient continues to do well with the IV antibiotics; will switch him over to Augmentin and Bactrim at discharge. Urology following- recommendations noted. No surgical indication at this point. Recommended wound care and antibiotics. Signed off. (2) Abnormal ultrasound: (3) Hyponatremia: Plan: Na- 135 continue to monitor (4) Diabetes mellitus, type II: Plan: A1c: 7.9 on 03/01/2022 On Trulicity every sunday at home BG well controlled on current basal bolus regimen- will continue- adjust as indicated (5) HTN (hypertension): Plan: Gets cough with lisinopril and hence discontinued. Started on losartan 50mg, titrated upto 100mg. Nifedipine added as patient continues to be hypertensive. Plan DVT ppx- sc lovenox Dispo-he continues to have erythema, swelling over his scrotum. Switched over to IV antibiotics on 04/07 Needs to be closely followed for improvement. Likely discharge tomorrow am Admission and Anticipated Discharge Date Admission Date: March 25, 2022 Subjective Patient seen and examined at the bedside. He continues to complain of pain in his scrotal region. He is able to urinate without any difficulty. No fever or chills overnight. Review of Systems Review of Systems: All systems reviewed & are unremarkable except as noted in Subjective Physical Exam Physical Exam: General: Morbidly obese, sitting comfortably in bed, not in distress, on room air HEENT: EOMI, PERRL, MMM Chest: Clear breath sounds bilaterally, no wheezes or crackles CVS: regular, normal heart sounds, no murmur Abdomen: Soft, non tender, not distended, normal bowel sounds Neuro: Awake, alert, oriented, conversing well, non focal Extremities: No edema : scrotal cellulitis with erythema, tenderness and swelling noted. Black eschar present over his left scrotum. Seropurulent drainage slightly decreased from previous day. Overall erythema and swelling have decreased Results & Data Results & Data ([facility]) Vital Signs (Past 12 Hours) Vital Signs Temp Pulse Resp BP Pulse Ox O2 Del Method 04/10/22 07:27 36.6 C 70 16 152/81 H 98 Room Air
[2022-04-10] MEDS: ENOXAPARIN INJ 40 MG/0.4 ML SYR SQ SCH (16:09)
[2022-04-11] MEDS: RASPBERRY SYRUP 5 ML UDP PO SCH ×2 (05:42→13:17)
[2022-04-11] MEDS: CHLORPHENIRAMINE PO SCH ×2 (05:42→12:25)
[2022-04-11] MEDS: VANCOMYCIN HCL 125 MG/2.5ML SOLN PO SCH ×2 (05:42→13:17)
[2022-04-11 07:49] LABS: Hematocrit (blood only) 41.1 % (40.1-51.0); Mean Corpuscular Hgb Conc 34.1 g/dL (32.0-36.0); Mean Corpuscular Volume 90.9 fL (80.0-100.0); Mean Platelet Volume 9.1 fL (9.4-12.4); Platelet Count 529 K/uL (130-400); RDW Coefficient of Variation 12.6 % (11.5-14.5); RDW Standard Deviation 41.1 fL (36.4-46.3); Red Blood Count 4.52 M/uL (4.63-6.08); White Blood Count 9.94 K/ul (4.8-10.8)
[2022-04-11] MEDS: NIFEdipine EXTENDED REL 30 MG TABCR PO SCH ×2 (07:52→12:24)
[2022-04-11] MEDS: LOSARTAN POTASSIUM 50 MG TAB PO SCH ×2 (07:52→12:25)
[2022-04-11] MEDS: NYSTATIN POWDER 15GM BTL EXT SCH (07:53)
[2022-04-11] MEDS: ASPIRIN 81 MG ECTAB PO SCH (07:53)
[2022-04-11 08:19] LABS: BUN Creatinine Ratio 18.5 (10-20); Calcium 9.7 mg/dl (8.5-10.1); Creatinine Clr Calc Pharmacy 124.3 ml/min; Est GFR (African American) 108.9 ml/min; Est GFR (Non-African American) 93.9 ml/min; Potassium 4.4 mmol/L (3.5-5.1)
[2022-04-11] MEDS: INSULIN ASPART PER UNIT SC SCH ×2 (08:57→12:26)
[2022-04-11] MEDS: LANTUS PER UNIT CHARGE SQ SCH (08:58)
[2022-04-11] MEDS: POTASSIUM CHLORIDE CRTAB 20 MEQ TABCR PO SCH (08:59)
--- NOTE | 2022-04-11 15:17 | Discharge Summary ---
Date of Service April 11, 2022 Admission HPI Per Admitting Provider Patient is a 66-year-old male with PMH HTN, dyslipidemia, DM II, h/o perianal abscess presented to ER with complaint of scrotal erythema. Patient reports he noticed 03/19/22 had lump bottom of left side scrotum that was not tender. He followed up with PCP on 03/22/22 and was prescribed Bactrim. Patient took Bactrim for 2 days. He felt increased edema and erythema and area very tender. He stopped taking Bactrim. Denies penile discharge or bleeding, trauma. 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 Patient reports had a little bit of nausea, denies vomiting. Denies fever/chills, diaphoresis, V/D/C, [place], dizziness, syncope, vision changes, neck pain, CP, SOB, orthopnea, palpitations, cough, sore throat, choking, otalgia, rhinorrhea, abdominal pain, paresthesias, weakness, extremity weakness, extremity edema, rashes, urinary symptoms. Admission Exam Per Admitting Provider General: no acute distress, obese Head: normocephalic, atraumatic Eyes: conjunctiva non-injected, anicteric ENT: normal inspection external ears, nose, mucous membranes moist Neck: supple, trachea midline Lungs: clear, no respiratory distress, no wheezing/rhonchi/rales CV: RRR, no murmur, no pretibial edema Abd: protuberant, normal BS, soft, non-tender Gential: exam per Dr Bruce Ext: no cyanosis, no calf tenderness Neuro: A&O x 3, no focal deficits noted, normal affect Skin: warm, dry Principal Diagnosis Scrotal cellulitis, possible epididymoorchitis Sepsis on admission Hyponatremia Type 2 DM HTN Discharge Exam General: Morbidly obese, sitting comfortably in bed, not in distress, on room air HEENT: EOMI, PERRL, MMM Chest: Clear breath sounds bilaterally, no wheezes or crackles CVS: regular, normal heart sounds, no murmur Abdomen: Soft, non tender, not distended, normal bowel sounds Neuro: Awake, alert, oriented, conversing well, non focal Extremities: No edema : scrotal cellulitis with erythema, tenderness and swelling noted. Black eschar present over his left scrotum. Seropurulent drainage slightly decreased from previous day. Overall erythema and swelling have decreased Discharge Data Allergies Allergy/AdvReac Type Severity Reaction Status Date / Time grass pollen Allergy Sneezing Verified 03/25/22 15:22 lisinopril AdvReac Intermediate Cough Verified 03/26/22 09:39 Consultations 03/25/22 09:56 ED Decision to Admit Stat 03/27/22 07:37 Consult Urology Routine 03/28/22 07:29 Consult Infectious Diseases Routine Ordered Studies 03/25/22 08:22 US scrotum/testicle Stat 04/03/22 07:28 CT pelvis wo con Routine Hospital Course (1) Cellulitis, scrotum: 66-year-old male with PMH HTN, dyslipidemia, DM II, h/o perianal abscess presented to ER with complaint of scrotal erythema, edema and tenderness x 2 days. Patient noticed non-tender lump to distal left scrotum on 03/19/22. PCP f/u on 03/22/22 and was prescribed Bactrim. Took for 2 days. Denies fever/chills, vomiting, known trauma, penile discharge, urinary symptoms. +mild nausea. In ER afebrile, initial P: 115 down to 91, R: 18, BP 162/132 down to 161/80, 97% on room air. WBC: 17, lactate: WNL. Ultrasound scrotum: There is diffuse scrotal wall thickening consistent with the reported history of cellulitis. Question mild hyperemia of the right epididymis and both testes. Correlate clinically for evidence of epididymoorchitis. In ER given Zosyn, vancomycin, 500 mL NSS Blood cultures obtained after initial antibiotics given Scrotal cellulitis, possible epididymoorchitis Sepsis on admission Met sepsis criteria on admission with tachycardia, leucocytosis. procal 0.6 WBC downtrended. ESR and CRP both down trended compared to 5 days prior. CK within normal limits. Urine clx negative, blood clx negative, MRSA screen negative Plan: Patient continues to have swelling, erythema from the scrotum. He also has a black eschar in the scrotum. Patient feels that he is unable to manage the wound at home. [facility] home health accepted. Continue on IV ceftriaxone and daptomycin. We will see clinical response with IV antibiotics. If patient continues to do well with the IV antibiotics; will switch him over to Augmentin and Bactrim at discharge. Urology following- recommendations noted. No surgical indication at this point. Recommended wound care and antibiotics. Signed off. (2) Abnormal ultrasound: (3) Hyponatremia: Na- 135 continue to monitor (4) Diabetes mellitus, type II: A1c: 7.9 on 03/01/2022 On Trulicity every sunday at home BG well controlled on current basal bolus regimen- will continue- adjust as indicated (5) HTN (hypertension): Gets cough with lisinopril and hence discontinued. Started on losartan 50mg, titrated upto 100mg. Nifedipine added as patient continues to be hypertensive. Plan Patient is a 66-year-old male with PMH HTN, dyslipidemia, DM II, h/o perianal abscess presented to ER with complaint of scrotal erythema, edema and tenderness x 2 days. Patient noticed non-tender lump to distal left scrotum on 03/19/22. PCP f/u on 03/22/22 and was prescribed Bactrim. Took for 2 days. Denies fever/chills, vomiting, known trauma, penile discharge, urinary symptoms. +mild nausea. In ER he was afebrile, initial P: 115 down to 91, R: 18, BP 162/132 down to 161/80, 97% on room air. WBC: 17, lactate: WNL. Ultrasound scrotum was There is diffuse scrotal wall thickening consistent with the reported history of cellulitis. Question mild hyperemia of the right epididymis and both testes. Urology was consulted. Patient was started on broad-spectrum antibiotics including vancomycin and Zosyn. Patient needed aggressive wound care and continued monitoring during his hospital stay. He had persistent seropurulent discharge from left side of the scrotum. Infectious disease was consulted; recommended patient to be on Levaquin. However, patient's QTC was prolonged. He was placed on Bactrim and Augmentin. Despite course of antibiotic, his ESR was elevated to 97. Patient was switched over to daptomycin and vancomycin. Patient swelling and several purulent discharge decreased over the course of the treatment after change of antibiotics. ESR and CRP down trended. Patient was discharged home with home health nurse coming to see him a day after the discharge. He also has a primary care follow-up on 04/13. He will also have outpatient urology follow-up. His antihypertensives were changed to losartan and amlodipine as he was getting significant cough from lisinopril and he was hyponatremic likely secondary to hydrochlorothiazide. Total Time Total Time Spent Total Time Spent (In Minutes): 35 Total Time Includes: Examination of the Patient, Discharge Planning, Medication Reconciliation, Communication With Other Providers and Other Discharge Plan Discharge Items Patient Disposition: Home - Home Health Services Reason For Visit: CELLULITIS Discharge Diagnosis: 1) Scrotal Cellulitis 2) Sepsis on admission 3) Type 2 DM 4) Hyponatremia 5) Hypertension Activity: Resume your previous activity Non-emergency contact: Primary Care Provider Call non-emergency contact if: you have any medication questions and your symptoms worsen Follow-up/Referrals: Jose Musa MD [Physician] - 04/20/22 3:40 pm Félix Chowdary MD [Primary Care Provider] - 04/13/22 11:10 am (Date & Time 04/13/2022 11:10 AM Provider Brandi Tripathi [facility] ) Diet: Carb Consistent or DM2 Addtl Attending Provider Instructions: You were admitted in the hospital with scrotal cellulitis. Please continue to keep the genital area clean and dry. please go to your follow-up with your primary care doctor day after tomorrow. You will have home health nurse come tomorrow to the house. Please follow-up with urology. Urology office will call you to set up appointment. You are also found to have high blood pressure. You were started on losartan 100 mg once daily and amlodipine 5 mg once daily. The prescription are sent to your pharmacy. Please stop taking lisinoprilhydrochlorothiazide. Please stop taking Bactrim. Pending Studies at Discharge: No Stand-Alone Forms: [facility] [employer], Smoking Cessation Medications and DC Order Prescriptions: New losartan 100 mg tablet 100 mg PO QAM Qty: 30 0RF amlodipine 5 mg tablet 5 mg PO DAILY Qty: 30 0RF acetaminophen 325 mg Tablet 650 mg PO Q4H PRN (Reason: pain) Qty: 30 0RF Continued chlorpheniramine maleate [ChlorTabs] 4 mg Tablet 4 mg PO DAILY metformin 1,000 mg tablet 1,000 mg PO BID aspirin 81 mg Tablet 81 mg PO DAILY Rx Instructions: Patient states has been taking 1.5 mg weekly but on sunday will increase. fluticasone propionate 50 mcg/actuation [place],Suspension 2 spray INTRANASAL DAILY PRN (Reason: Congestion) Trulicity 3 mg/0.5 mL pen injector 3 mg SUBCUT WK Rx Instructions: Takes on sundays Discontinued lisinopril-hydrochlorothiazide 20-12.5 mg tablet 1 tab PO DAILY sulfamethoxazole-trimethoprim 800-160 mg tablet 1 tab PO BID Rx Instructions: Rx on 03/22/22 ibuprofen 200 mg Tablet 400 mg PO Q6H PRN (Reason: Pain) Discharge Orders: Discharge Order (Routine); Ordered 04/11/22 Ordered By: Ortega Ellison Admission Data Admit Date/Time: 03/25/22 10:32 Attending Provider: Ortega Ellison Admit Provider: Konstantin Bruce Primary Care Provider: Félix Chowdary Other Providers: Konstantin Bruce ; Inocencio Kingsley ; Raudel Medellin ; Seble Urena ; Wilmar Mayer I. ; Xiang Fernandez II ; Cary Liu ; Frankie Paulino ; Ramy Boogie ; [facility],Home Healthcare Other Interventions: Discharge Summary Assessment (RN) Last Done: 04/11/22 13:19
== END 2022-04-11 14:00 | disposition home health service (06) | DRG 872 ==
LOC: ED 07:48 → SUATTDRO 10:32 → EDINP 10:32 → 2N 03-26 18:47 → 3W 04-08 02:11

== ENCOUNTER 2023-02-03 12:14 | Inpatient (IN) ==
--- NOTE | 2023-02-03 12:59 | Emergency Department Note ---
History of Present Illness General Chief complaint: TIA Symptoms Stated complaint: NUMB LIPS, ARM TINGLING, VISION PROBLEMS Time Seen by Provider: 02/03/23 12:29 Source: patient, RN notes reviewed and old records reviewed Mode of arrival: ambulatory Limitations: no limitations History of Present Illness This patient 67-year-old male who comes in with several different complaints saying everything just feels out of place he says his vision feels off at times he actually saw an eye doctor this week who told him that his central vision on the left eye was abnormal and it sounds like it was from diabetic retinopathy and not a stroke but he is not sure. He says his left arm fell asleep 2 days ago and still continues to feel like it is asleep he also has problems with his balance at times he had no fall no headache at present he did have one yesterday. No fever chills no cough no chest pain or heart racing no new medications. he has had no falls no blood or melena stool no focal numbness or weakness besides the left arm feeling numb but not weak. No history of similar complaints. His blood sugars been running okay. he does not drink or smoke or use drugs Home Medications Medication Instructions Recorded Confirmed Type aspirin 81 mg tablet 81 mg PO DAILY 03/25/22 10/02/22 History chlorpheniramine maleate 4 mg 4 mg PO DAILY 03/25/22 10/02/22 History tablet (ChlorTabs) dulaglutide 3 mg/0.5 mL 3 mg subcut WK 03/25/22 10/02/22 History subcutaneous pen injector (Trulicity) metformin 1,000 mg tablet 1,000 mg PO BID 03/25/22 10/02/22 History acetaminophen 325 mg tablet 650 mg PO Q4H PRN pain #30 tabs 04/11/22 10/02/22 Rx amlodipine 5 mg tablet 5 mg PO DAILY #30 tabs 04/11/22 10/02/22 Rx losartan 100 mg tablet 100 mg PO QAM #30 tabs 04/11/22 10/02/22 Rx tramadol 50 mg tablet 50 mg PO Q8H PRN pain #20 tabs 06/13/22 10/02/22 Rx Allergies Allergy/AdvReac Type Severity Reaction Status Date / Time grass pollen Allergy Sneezing Verified 10/02/22 08:36 lisinopril AdvReac Intermediate Cough Verified 10/02/22 08:36 Past Med/Surg History Medical History Abnormal ultrasound Diabetes mellitus, type II Dyslipidemia Epididymoorchitis HTN (hypertension) Hypokalemia Hyponatremia Surgical History History of incision and drainage Family History Other Breast cancer Coronary heart disease Diabetes Hypertension Social History Smoking Status: Never smoker Tobacco Type: Smokeless Tobacco (Dip or Chew) Second Hand Exposure: No; Do You Dip or Chew Tobacco: Yes; Hx Alcohol Use: No Hx Substance Use: No Preferred Language: Uzbek Communication Ability: Effective [employer] Required: No Beliefs That Will Affect Care: None marital status: Current Living Situation: Spouse Feels Safe at Home: Yes Assistive Devices: Glasses Review of Systems A total of 10 systems reviewed and were otherwise negative Physical Exam Vital Signs Vital Signs - 24 hr 02/03/23 12:17 02/03/23 12:38 02/03/23 12:38 Temperature 37.2 C Temperature Source Skin Pulse Rate 104 H Respiratory Rate 20 Respiratory Effort / Characteristics Non-Labored Spontaneous Respiratory Depth Normal Respiratory Pattern Regular Blood Pressure 184/103 H Blood Pressure Mean 130 Pulse Oximetry 98 97 97 Oxygen Delivery Method Room Air Room Air Room Air Oxygen Flow Rate 0 Sepsis Recent Fever Within 48 Hours No Sepsis New/Unexplained Change in Mental Status N/A Sepsis Action Taken by Nursing No Action Required 02/03/23 12:46 02/03/23 12:44 02/03/23 13:00 Temperature Temperature Source Pulse Rate 96 H 100 H Respiratory Rate 14 Respiratory Effort / Characteristics Respiratory Depth Respiratory Pattern Blood Pressure 153/77 H Blood Pressure Mean 116 Pulse Oximetry Oxygen Delivery Method Oxygen Flow Rate Sepsis Recent Fever Within 48 Hours Sepsis New/Unexplained Change in Mental Status Sepsis Action Taken by Nursing 02/03/23 13:00 02/03/23 13:30 02/03/23 14:00 Temperature Temperature Source Pulse Rate 85 84 Respiratory Rate 23 23 22 Respiratory Effort / Characteristics Respiratory Depth Respiratory Pattern Blood Pressure Blood Pressure Mean Pulse Oximetry Oxygen Delivery Method Oxygen Flow Rate Sepsis Recent Fever Within 48 Hours Sepsis New/Unexplained Change in Mental Status Sepsis Action Taken by Nursing General: Well developed well nourished older male who appears talkative and in no acute distress, breathing comfortably on room air. Normal speech. Alert and orient x3. No facial asymmetry or droop HEENT: Normal cephalic atraumatic. Pupils are equal round and reactive to light. Extraocular movements are intact. Oropharynx is pink with moist mucous membranes. No swelling of the mouth lips or tongue. Neck: Supple with a midline trachea. No meningeal signs or stiffness, no JVD or bruits. No Stridor. Chest: Clear to auscultation bilaterally. No wheezes or rhonchi. No increased work of breathing. Heart: Regular rate and rhythm without murmurs or gallops. Abdomen: Soft nontender, nondistended without rebound guarding or rigidity. Extremities: No cyanosis clubbing or edema. No calf tenderness or assymetry Spine/Back. Non tender to palpation. No CVA tenderness Skin: Good turgor without rashes. Neurologic exam: Cranial nerves two through 12 are intact. Motor is intact and symmetrical throughout. When I touch the left arm compared to the right he says it feels like it is numb and it is diffuse and starts about the mid bicep area and downward. No pronator drift or tremor. Course Administered Medications Discontinued Medications Aspirin (Aspirin 81 Mg Chew) 324 mg PO NOW STA Stop: 02/03/23 14:13 Last Admin: 02/03/23 14:27 Dose: 324 mg Documented By: LIZY Ioversol (Optiray 320 125ml) 120 ml IV ONCE ONE Stop: 02/03/23 13:16 Last Admin: 02/03/23 13:16 Dose: 120 ml Documented By: MURTAZA Medical Decision Making Differential Diagnosis Stroke, intracranial process, vascular disease, musculoskeletal, disc disease, diabetic complication, infection, electrolyte or metabolic abnormality, anemia, cardiac disease, arrhythmia Medical Records Attestation: I reviewed the patient's medical records. Home Medications Current Medication List: was personally reviewed by me Laboratory Data Attestation: I reviewed the patient's lab results. 02/03/23 12:42 02/03/23 12:42 Lab Results 02/03/23 02/03/23 02/03/23 Range/Units 12:42 12:42 12:42 WBC 10.64 (4.8-10.8) K/ul RBC 4.37 L (4.70-6.10) M/uL Hgb 14.0 (14.0-18.0) g/dl POC Hgb (14.0-18.0) g/dl Hct 38.8 L (42.0-52.0) % POC Hct (42-52) % MCV 88.8 (80.0-100.0) fL MCH 32.0 (25.0-34.0) pg MCHC 36.1 H (32.0-36.0) g/dL RDW Std Deviation 39.7 (36.4-46.3) fL RDW Coeff of Robert 12.3 (11.5-14.5) % Plt Count 279 (130-400) K/uL MPV 9.6 (9.4-12.4) fL PT 10.6 (9.0-12.0) Seconds INR 1.0 (0.9-1.1) APTT 26.1 (21.0-31.0) Seconds PTT Ratio 0.9 POC Sodium (135-144) mmol/L Sodium 134 L (136-145) mmol/L POC Potassium (3.3-5.0) mmol/L Potassium 4.2 (3.5-5.1) mmol/L POC Chloride (101-112) mmol/L Chloride 102 (98-107) mmol/L Carbon Dioxide 25 (21-32) mmol/L POC Total CO2 (24-31) mmol/L Anion Gap 7 (3-11) POC Anion Gap (16-25) mmol/L POC BUN (7-18) mg/dl BUN 15 (6-23) mg/dl Creatinine 0.70 (0.6-1.4) mg/dl POC Creatinine (0.6-1.3) mg/dl Est Cr Clr Drug Dosing 143.6 ml/min Est GFR ( Amer) 114.8 ml/min Est GFR (Non-Af Amer) 99.0 ml/min BUN/Creatinine Ratio 21.4 H (10-20) Glucose 217 H (70-99(Fasting)) mg/dl POC Glucose (other) (70-99) mg/dl Calcium 9.4 (8.6-10.3) mg/dl POC Ioniz Calcium Rodolfo (1.12-1.32) mmol/l Magnesium 1.9 (1.7-2.4) mg/dl Total Bilirubin 1.3 H (0.2-1.0) mg/dl AST 15 (13-39) U/L ALT 18 (7-52) U/L Alkaline Phosphatase 87 (34-104) U/L Troponin I High Sens 3.8 (0-20) pg/ml Total Protein 7.9 (6.0-8.3) gm/dl Albumin 4.2 (3.4-5.0) gm/dl Globulin 3.7 (2.5-4.0) gm/dl Albumin/Globulin Ratio 1.1 (0.9-2) 02/03/23 Range/Units 12:54 WBC (4.8-10.8) K/ul RBC (4.70-6.10) M/uL Hgb (14.0-18.0) g/dl POC Hgb 13.9 L (14.0-18.0) g/dl Hct (42.0-52.0) % POC Hct 41 L (42-52) % MCV (80.0-100.0) fL MCH (25.0-34.0) pg MCHC (32.0-36.0) g/dL RDW Std Deviation (36.4-46.3) fL RDW Coeff of Robert (11.5-14.5) % Plt Count (130-400) K/uL MPV (9.4-12.4) fL PT (9.0-12.0) Seconds INR (0.9-1.1) APTT (21.0-31.0) Seconds PTT Ratio POC Sodium 138 (135-144) mmol/L Sodium (136-145) mmol/L POC Potassium 4.3 (3.3-5.0) mmol/L Potassium (3.5-5.1) mmol/L POC Chloride 101 (101-112) mmol/L Chloride (98-107) mmol/L Carbon Dioxide (21-32) mmol/L POC Total CO2 23 L (24-31) mmol/L Anion Gap (3-11) POC Anion Gap 19.0 (16-25) mmol/L POC BUN 14 (7-18) mg/dl BUN (6-23) mg/dl Creatinine (0.6-1.4) mg/dl POC Creatinine 0.6 (0.6-1.3) mg/dl Est Cr Clr Drug Dosing ml/min Est GFR ( Amer) ml/min Est GFR (Non-Af Amer) ml/min BUN/Creatinine Ratio (10-20) Glucose (70-99(Fasting)) mg/dl POC Glucose (other) 218 H (70-99) mg/dl Calcium (8.6-10.3) mg/dl POC Ioniz Calcium Rodolfo 1.19 (1.12-1.32) mmol/l Magnesium (1.7-2.4) mg/dl Total Bilirubin (0.2-1.0) mg/dl AST (13-39) U/L ALT (7-52) U/L Alkaline Phosphatase (34-104) U/L Troponin I High Sens (0-20) pg/ml Total Protein (6.0-8.3) gm/dl Albumin (3.4-5.0) gm/dl Globulin (2.5-4.0) gm/dl Albumin/Globulin Ratio (0.9-2) Imaging Data Attestation: I personally reviewed and interpreted this imaging study as follows: My Impression: Head CTthere is a hyperdense area in the right ROLLER INSPECTOR distribution likely consistent with a subacute stroke. No hemorrhage or mass effect Chest x-rayno focal infiltrate failure or pneumothorax. The right diaphragm does appear to be mildly elevated Radiologist's Impression: Chest X-Ray 02/03/23 12:23 XR chest 1V portable HISTORY: Stroke symptoms. Neurologic deficit. COMPARISON: None. FINDINGS: No pneumothorax. No pleural effusions. There is mild elevation of the right hemidiaphragm. The lungs are clear. The heart is top normal in size. No acute fractures identified. IMPRESSION: Mild elevation of the right hemidiaphragm which may be chronic. Otherwise, no acute process within the chest. ACT 112: Negative or not required by law. Electronically signed by: Chino Fuentes M.D. 02/03/2023 1:[address] 02/03/23 12:[address] DOSE: HISTORY: Neuro deficit, acute, stroke suspected TECHNIQUE: Multiaxial CT images of the head were performed without the use of intravenous contrast. Automated exposure control was utilized for this study. A dose lowering technique was utilized adhering to the principles of ALARA. Comparison: None. Findings: The paranasal sinuses and mastoid air cells are clear. Small arachnoid cyst within the right middle cranial fossa. Focal hypodensity within the right posterior temporal lobe and extending into the right occipital lobe. This measures approximately 8 x 3 cm and is consistent with an acute to subacute right ROLLER INSPECTOR territory infarct. No evidence for hemorrhagic transformation at this time. There is mass effect on the right lateral ventricle. No hydrocephalus. No significant midline shift identified. Impression: 1. Acute to subacute right ROLLER INSPECTOR territory infarct. 2. No intracranial hemorrhage at this time. ACT 112: Negative or not required by law. Electronically signed by: Chino Fuentes M.D. 02/03/2023 1:39 PM Head CTA 02/03/23 12:47 HEAD & NECK CTA HISTORY: neuro deficit, acute stroke suspected TECHNIQUE: Multiaxial CT images of the head were performed following the intravenous administration of contrast to evaluate the major cerebral vessels. Multiaxial CT images of the neck were also performed following the intravenous administration of contrast to evaluate the major cervical vessels. Maximum intensity projection images were also obtained. A dose lowering technique was utilized adhering to the principles of ALARA. COMPARISON: Head CT 02/03/2023. FINDINGS: Redemonstration of the right ROLLER INSPECTOR territory infarct involving the right posterior temporal lobe and right occipital lobe. There is a focal abrupt vascular cut off at the proximal right ROLLER INSPECTOR on image 100 consistent with a site of occlusion. This corresponds to the right ROLLER INSPECTOR territory infarct. The visualized intracranial internal carotid arteries, distal vertebral arteries, and basilar artery are widely patent. The left A1 segment is absent. This is likely developmental. There is mild to moderate narrowing at the left MCA bifurcation of up to 50%. Otherwise, the bilateral ACAs, right MCA, and left ROLLER INSPECTOR show no significant stenosis, occlusion, or aneurysm. The aortic arch and proximal great vessels are widely patent. There is no significant stenosis, occlusion, or dissection identified within the bilateral common carotid, internal carotid, or vertebral arteries. IMPRESSION: 1. There is abrupt occlusion within the proximal right ROLLER INSPECTOR corresponding to the acute right ROLLER INSPECTOR territory infarct. 2. Mild to moderate narrowing at the left MCA bifurcation of up to 50%. 3. No significant stenosis, occlusion, or dissection identified within the carotid or vertebral arteries. ACT 112: Negative or not required by law. Electronically signed by: Chino Fuentes M.D. 02/03/2023 1:45 PM Neck CTA 02/03/23 12:47 HEAD & NECK CTA HISTORY: neuro deficit, acute stroke suspected TECHNIQUE: Multiaxial CT images of the head were performed following the intravenous administration of contrast to evaluate the major cerebral vessels. Multiaxial CT images of the neck were also performed following the intravenous administration of contrast to evaluate the major cervical vessels. Maximum intensity projection images were also obtained. A dose lowering technique was utilized adhering to the principles of ALARA. COMPARISON: Head CT 02/03/2023. FINDINGS: Redemonstration of the right ROLLER INSPECTOR territory infarct involving the right posterior temporal lobe and right occipital lobe. There is a focal abrupt vascular cut off at the proximal right ROLLER INSPECTOR on image 100 consistent with a site of occlusion. This corresponds to the right ROLLER INSPECTOR territory infarct. The visualized intracranial internal carotid arteries, distal vertebral arteries, and basilar artery are widely patent. The left A1 segment is absent. This is likely developmental. There is mild to moderate narrowing at the left MCA bifurcation of up to 50%. Otherwise, the bilateral ACAs, right MCA, and left ROLLER INSPECTOR show no significant stenosis, occlusion, or aneurysm. The aortic arch and proximal great vessels are widely patent. There is no significant stenosis, occlusion, or dissection identified within the bilateral common carotid, internal carotid, or vertebral arteries. IMPRESSION: 1. There is abrupt occlusion within the proximal right ROLLER INSPECTOR corresponding to the acute right ROLLER INSPECTOR territory infarct. 2. Mild to moderate narrowing at the left MCA bifurcation of up to 50%. 3. No significant stenosis, occlusion, or dissection identified within the carotid or vertebral arteries. ACT 112: Negative or not required by law. Electronically signed by: Chino Fuentes M.D. 02/03/2023 1:45 PM ECG Data Attestation: I personally reviewed and interpreted this ECG as follows: Indication: + weakness Rate (beats per minute): 91 Rhythm: + normal sinus ECG Intervals/blocks: + Right Bundle branch block, + Short DC and + Normal QT ECG [place]: + Normal ECG ST segments: + Normal ST segments ECG Findings: no PACs or no PVCs Comparison ECG Date: from (03/24/22) Change: no significant change MDM Narrative This patient comes in as described above. He has tingling/numbness in his left arm for 2 days he is also had some visual issues and feels off and off balance he looks well otherwise. With symptoms going on greater than 48 hours he is outside the acute window for thrombolytics or interventions. I did however do the extensive stroke work-up on him he was placed on a playground monitor in room B12A. EKG was obtained and shows no acute ischemic changes no change compared to old. I did CAT scan of the head as well as CT angiography of the head and neck. He was reassessed frequently. His labs look unremarkable and reassuring however the CAT scan of his head shows an area of infarct in the ROLLER INSPECTOR territory which explains his symptoms. Unfortunately symptoms have been going on for at least 48 hours. He appears comfortable at present and in no distress. I did give him aspirin 324 mg chewable. I discussed the case in consultation with Dr. Tari Olivier, the [facility] hospitalist. She saw the patient in ER and will admit him for further work-up and further stroke work-up. Continuous cardiac monitoring: An order was placed in EMR for continuous cardiac monitoring: Upon my evaluation patient noted to be normal sinus rhythm rate of 90 Impression & Plan Acute CVA (cerebrovascular accident), Stroke-like symptoms, Tingling of left upper extremity, Diabetes, Visual changes, Lab test negative for COVID-19 virus Discharge Plan Visit Data Chief Complaint: TIA Symptoms Stated Complaint: NUMB LIPS, ARM TINGLING, VISION PROBLEMS ED Provider: Claeb Hood Discharge Problem: Acute CVA (cerebrovascular accident), Stroke-like symptoms, Tingling of left upper extremity, Diabetes, Visual changes, Lab test negative for COVID-19 virus Forms Stand Alone Forms: My [facility] [employer] Prescriptions Prescriptions: No Action tramadol 50 mg tablet 50 mg PO Q8H PRN (Reason: pain) Qty: 20 0RF chlorpheniramine maleate [ChlorTabs] 4 mg Tablet 4 mg PO DAILY metformin 1,000 mg tablet 1,000 mg PO BID aspirin 81 mg Tablet 81 mg PO DAILY Rx Instructions: Patient states has been taking 1.5 mg weekly but on sunday will increase. Trulicity 3 mg/0.5 mL pen injector 3 mg SUBCUT WK Rx Instructions: Takes on sundays losartan 100 mg tablet 100 mg PO QAM Qty: 30 0RF amlodipine 5 mg tablet 5 mg PO DAILY Qty: 30 0RF acetaminophen 325 mg Tablet 650 mg PO Q4H PRN (Reason: pain) Qty: 30 0RF Referrals Referrals: Félix Chowdary MD [Primary Care Provider] -
[2023-02-03 13:01] LABS: Hematocrit (blood only) 38.8 % (42.0-52.0); Mean Corpuscular Hgb Conc 36.1 g/dL (32.0-36.0); Mean Corpuscular Volume 88.8 fL (80.0-100.0); Mean Platelet Volume 9.6 fL (9.4-12.4); Platelet Count 279 K/uL (130-400); RDW Coefficient of Variation 12.3 % (11.5-14.5); RDW Standard Deviation 39.7 fL (36.4-46.3); Red Blood Count 4.37 M/uL (4.70-6.10); White Blood Count 10.64 K/ul (4.8-10.8)
[2023-02-03 13:15] LABS: Albumin Globulin Ratio 1.1 (0.9-2); Albumin Level 4.2 gm/dl (3.4-5.0); BUN Creatinine Ratio 21.4 (10-20); Bilirubin,Total 1.3 mg/dl (0.2-1.0); Calcium 9.4 mg/dl (8.6-10.3); Creatinine Clr Calc Pharmacy 143.6 ml/min; Est GFR (African American) 114.8 ml/min; Globulin 3.7 gm/dl (2.5-4.0); Magnesium 1.9 mg/dl (1.7-2.4); Potassium 4.2 mmol/L (3.5-5.1); Total Protein 7.9 gm/dl (6.0-8.3)
[2023-02-03] MEDS ORDERED: OPTIRAY 320 125ml IV ONE (13:15)
[2023-02-03 13:16] LABS: iSTAT Creatinine 0.6 mg/dl (0.6-1.3); iSTAT Hemoglobin 13.9 g/dl (14.0-18.0); iSTAT Ionized Calcium 1.19 mmol/l (1.12-1.32); iSTAT Potassium 4.3 mmol/L (3.3-5.0)
--- NOTE | 2023-02-03 13:20 | XRay Report ---
XR chest 1V portable HISTORY: Stroke symptoms. Neurologic deficit. COMPARISON: None. FINDINGS: No pneumothorax. No pleural effusions. There is mild elevation of the right hemidiaphragm. The lungs are clear. The heart is top normal in size. No acute fractures identified. IMPRESSION: Mild elevation of the right hemidiaphragm which may be chronic. Otherwise, no acute process within th e chest. ACT 112: Negative or not required by law. Electronically signed by: Chino Fuentes M.D. 02/03/2023 1:19 PM
[2023-02-03 13:21] LABS: Troponin I High Sensitivity 3.8 pg/ml (0-20)
[2023-02-03 13:26] LABS: Partial Thromboplastin Ratio 0.9; Partial Thromboplastin Time 26.1 Seconds (21.0-31.0); Prothrombin Time 10.6 Seconds (9.0-12.0)
--- NOTE | 2023-02-03 13:41 | CT Scan Report ---
HEAD CT NONCONTRAST CT DOSE: HISTORY: Neuro deficit, acute, stroke suspected TECHNIQUE: Multiaxial CT images of the head were performed without the use of intravenous contrast. A utomated exposure control was utilized for this study. A dose lowering technique was utilized adheri ng to the principles of ALARA. Comparison: None. Findings: The paranasal sinuses and mastoid air cells are clear. Small arachnoid cyst within the right middle cranial fossa. Focal hypodensity within the right brushing operator ior temporal lobe and extending into the right occipital lobe. This measures approximately 8 x 3 cm a nd is consistent with an acute to subacute right BROWNING PROCESSOR territory infarct. No evidence for hemorrhagic t ransformation at this time. There is mass effect on the right lateral ventricle. No hydrocephalus. No significant midline shift identified. Impression: 1. Acute to subacute right BROWNING PROCESSOR territory infarct. 2. No intracranial hemorrhage at this time. ACT 112: Negative or not required by law. Electronically signed by: Chino Fuentes M.D. 02/03/2023 1:39 PM
--- NOTE | 2023-02-03 13:47 | CT Scan Report ---
HEAD & NECK CTA HISTORY: neuro deficit, acute stroke suspected TECHNIQUE: Multiaxial CT images of the head were performed following the intravenous administration o f contrast to evaluate the major cerebral vessels. Multiaxial CT images of the neck were also perform ed following the intravenous administration of contrast to evaluate the major cervical vessels. Maxim um intensity projection images were also obtained. A dose lowering technique was utilized adhering to the principles of ALARA. COMPARISON: Head CT 02/03/2023. FINDINGS: Redemonstration of the right TEXTILE DYER territory infarct involving the right posterior temporal lobe and ri ght occipital lobe. There is a focal abrupt vascular cut off at the proximal right TEXTILE DYER on image 100 c onsistent with a site of occlusion. This corresponds to the right TEXTILE DYER territory infarct. The visualiz ed intracranial internal carotid arteries, distal vertebral arteries, and basilar artery are widely p atent. The left A1 segment is absent. This is likely developmental. There is mild to moderate narrowi ng at the left MCA bifurcation of up to 50%. Otherwise, the bilateral ACAs, right MCA, and left TEXTILE DYER s how no significant stenosis, occlusion, or aneurysm. The aortic arch and proximal great vessels are widely patent. There is no significant stenosis, occ lusion, or dissection identified within the bilateral common carotid, internal carotid, or vertebral arteries. IMPRESSION: 1. There is abrupt occlusion within the proximal right TEXTILE DYER corresponding to the acute right TEXTILE DYER curly tory infarct. 2. Mild to moderate narrowing at the left MCA bifurcation of up to 50%. 3. No significant stenosis, occlusion, or dissection identified within the carotid or vertebral arter ies. ACT 112: Negative or not required by law. Electronically signed by: Chino Fuentes M.D. 02/03/2023 1:45 PM
--- NOTE | 2023-02-03 13:47 | CT Scan Report ---
HEAD & NECK CTA HISTORY: neuro deficit, acute stroke suspected TECHNIQUE: Multiaxial CT images of the head were performed following the intravenous administration o f contrast to evaluate the major cerebral vessels. Multiaxial CT images of the neck were also perform ed following the intravenous administration of contrast to evaluate the major cervical vessels. Maxim um intensity projection images were also obtained. A dose lowering technique was utilized adhering to the principles of ALARA. COMPARISON: Head CT 02/03/2023. FINDINGS: Redemonstration of the right COATING OPERATOR territory infarct involving the right posterior temporal lobe and ri ght occipital lobe. There is a focal abrupt vascular cut off at the proximal right COATING OPERATOR on image 100 c onsistent with a site of occlusion. This corresponds to the right COATING OPERATOR territory infarct. The visualiz ed intracranial internal carotid arteries, distal vertebral arteries, and basilar artery are widely p atent. The left A1 segment is absent. This is likely developmental. There is mild to moderate narrowi ng at the left MCA bifurcation of up to 50%. Otherwise, the bilateral ACAs, right MCA, and left COATING OPERATOR s how no significant stenosis, occlusion, or aneurysm. The aortic arch and proximal great vessels are widely patent. There is no significant stenosis, occ lusion, or dissection identified within the bilateral common carotid, internal carotid, or vertebral arteries. IMPRESSION: 1. There is abrupt occlusion within the proximal right COATING OPERATOR corresponding to the acute right COATING OPERATOR curly tory infarct. 2. Mild to moderate narrowing at the left MCA bifurcation of up to 50%. 3. No significant stenosis, occlusion, or dissection identified within the carotid or vertebral arter ies. ACT 112: Negative or not required by law. Electronically signed by: Chino Fuentes M.D. 02/03/2023 1:45 PM
[2023-02-03] MEDS ORDERED: ASPIRIN 81 MG CHEW PO STA (14:12)
[2023-02-03] MEDS ORDERED: PHARMACIST DISCHARGE MED REC CONSULT PRN (14:31)
--- NOTE | 2023-02-03 15:12 | History & Physical Report ---
Date of Service February 03, 2023 Assessment & Plan (1) Tingling of left upper extremity: (2) Diabetes: (3) Acute CVA (cerebrovascular accident): (4) Visual changes: (5) Cellulitis, scrotum: (6) Dyslipidemia: (7) HTN (hypertension): (8) Tobacco use disorder: Plan 66yoM with PMHx of DMII with retinopathy, HTN, dyslipidemia not currently on statin, chronic tobacco use, h/o perianal/scrotal abscess admitted with a R DIGITAL SOLUTIONS ARCHITECT stroke. R DIGITAL SOLUTIONS ARCHITECT stroke Pt states that he started with L eye vision loss on January 21. Has been having headaches, feels like his balance is "off" and started having Left sided hand numbness to the left elbow 2 days ago. Saw an eyeglass cutter last week and states he was told his vision loss was related to his diabetic retinopathy. However, he states the eye disturbance was so bad that he stopped driving as he was concerned that his vision and a blind spot. He presented to the ED today due to the persistence of his symptoms. Head CT, head and neck CTA showed abrupt occlusion of the right DIGITAL SOLUTIONS ARCHITECT with mass effect noted on the right lateral ventricle. Received aspirin 342mg in the ED, continue with daily 81mg, atorvastatin 40mg ordered. Pt states he was previously on it, but never got it refilled. MRI brain, Echo pending, lipid panel and hgba1c pending, PT/OT. Passed dysphagia screen. Neurology consult- phone discussion, advise thrombolytics/thrombectomy not an option at this time, BP control with permissive HTN systolic 140-160, no dual antiplatelet out of concern for hemorrhagic conversion with mass effect. Appreciate recs DMII with retinopathy Acute vision changes likely related to his stroke Hold home metformin and trulicity AM hgba1c ISS HTN Holding home amlodipine and losartan for permissive HTN in setting of acute stroke, goal systolic 140-160 HLD Started on atorvastatin 40mg. Pt states he was previously on it, but never got it refilled. Chronic Tobacco Use Pt chews tobacco, states 1 can a week for the past 30-40 years Does not want to stop at this time H/O perianal/scrotal abscess Currently stable, previously followed with Urology. On tramadol for pain CODE STATUS: Full code Diet: DMII/HH DVT prophylaxis: SCDs, holding anticoagulants out of concern for hemorrhagic conversion in the setting of mass effect Dispo: PCU/tele History of Present Illness Primary Care Provider: Félix Chowdary MD 66yoM with PMHx of DMII with retinopathy, HTN, dyslipidemia not currently on statin, chronic tobacco use, h/o perianal/scrotal abscess admitted with a R DIGITAL SOLUTIONS ARCHITECT stroke. States that two Sund ago, on January 21 he woke up with vision loss in the left eye. He also had been having headaches which he states resolved with gait instability. Two days ago he however noted left hand numbness and tingling up to his left elbow. States that he is not currently on a statin as he never got it refilled. He notes that he has been taking his blood pressure medications as prescribed. He states he chews tobacco, about 1 can a week and has done that since he was a teenager. States he takes his Trulicity every Sunday and his metformin daily. Per [facility] chart review his last hgba1c was about 6 months ago and was 7.8. Pt denies any chest pain, SOB, slurred speech or difficulty swallowing. Allergies Allergy/AdvReac Type Severity Reaction Status Date / Time grass pollen Allergy Sneezing Verified 10/02/22 08:36 lisinopril AdvReac Intermediate Cough Verified 10/02/22 08:36 Home Medications Medication Instructions Recorded Confirmed Type aspirin 81 mg tablet 81 mg PO DAILY 03/25/22 10/02/22 History chlorpheniramine maleate 4 mg 4 mg PO DAILY 03/25/22 10/02/22 History tablet (ChlorTabs) dulaglutide 3 mg/0.5 mL 3 mg subcut WK 03/25/22 10/02/22 History subcutaneous pen injector (Trulicity) metformin 1,000 mg tablet 1,000 mg PO BID 03/25/22 10/02/22 History acetaminophen 325 mg tablet 650 mg PO Q4H PRN pain #30 tabs 04/11/22 10/02/22 Rx amlodipine 5 mg tablet 5 mg PO DAILY #30 tabs 04/11/22 10/02/22 Rx losartan 100 mg tablet 100 mg PO QAM #30 tabs 04/11/22 10/02/22 Rx tramadol 50 mg tablet 50 mg PO Q8H PRN pain #20 tabs 06/13/22 10/02/22 Rx Past Med/Surg History Medical History Abnormal ultrasound Diabetes mellitus, type II Dyslipidemia Epididymoorchitis HTN (hypertension) Hypokalemia Hyponatremia Surgical History History of incision and drainage Family History Other Breast cancer Coronary heart disease Diabetes Hypertension Social History Smoking Status: Never smoker Tobacco Type: Smokeless Tobacco (Dip or Chew) Second Hand Exposure: No; Do You Dip or Chew Tobacco: Yes; Hx Alcohol Use: No Hx Substance Use: No Preferred Language: Czech Communication Ability: Effective Smoking Pipe Liner Required: No Beliefs That Will Affect Care: None marital status: Current Living Situation: Spouse Feels Safe at Home: Yes Assistive Devices: Glasses Review of Systems Review of Systems: All systems reviewed & are unremarkable except as noted in HPI & below Physical Exam Physical Exam: General: Alert, oriented. No acute distress Skin: No noted rashes or bruises Psych: Appropriate mood and affect Neuro: Visual loss in left eye with right eye covered, EOMI, slight weakness in LUE HEENT: NC/AT, EOMI, oropharynx moist. Chest: Nontender to palpation. CV: RRR Resp: Breath sounds clear bilaterally, no increased effort of breathing. No crackles/rhonchi/rales. Abdomen: BS+. Soft, nontender, nondistended. No guarding. No organomegaly appreciated. Extremities: Moves all extremities appropriately bilaterally. Results & Data Results & Data Vital Signs (Past 12 Hours) Vital Signs Temp Pulse Resp BP Pulse Ox O2 Del Method O2 Flow Rate 02/03/23 14:00 84 22 02/03/23 13:30 23 02/03/23 13:00 85 23 02/03/23 13:00 153/77 H 02/03/23 12:44 100 H 14 02/03/23 12:46 96 H 02/03/23 12:38 97 Room Air 02/03/23 12:38 97 Room Air 0 02/03/23 12:17 37.2 C 104 H 20 184/103 H 98 Room Air Diagnostic Findings Chest X-Ray 02/03/23 12:23 XR chest 1V portable HISTORY: Stroke symptoms. Neurologic deficit. COMPARISON: None. FINDINGS: No pneumothorax. No pleural effusions. There is mild elevation of the right hemidiaphragm. The lungs are clear. The heart is top normal in size. No acute fractures identified. IMPRESSION: Mild elevation of the right hemidiaphragm which may be chronic. Otherwise, no acute process within the chest. ACT 112: Negative or not required by law. Electronically signed by: Chino Fuentes M.D. 02/03/2023 1:[address] 02/03/23 12:[address] DOSE: HISTORY: Neuro deficit, acute, stroke suspected TECHNIQUE: Multiaxial CT images of the head were performed without the use of intravenous contrast. Automated exposure control was utilized for this study. A dose lowering technique was utilized adhering to the principles of ALARA. Comparison: None. Findings: The paranasal sinuses and mastoid air cells are clear. Small arachnoid cyst within the right middle cranial fossa. Focal hypodensity within the right posterior temporal lobe and extending into the right occipital lobe. This measures approximately 8 x 3 cm and is consistent with an acute to subacute right DIGITAL SOLUTIONS ARCHITECT territory infarct. No evidence for hemorrhagic transformation at this time. There is mass effect on the right lateral ventricle. No hydrocephalus. No significant midline shift identified. Impression: 1. Acute to subacute right DIGITAL SOLUTIONS ARCHITECT territory infarct. 2. No intracranial hemorrhage at this time. ACT 112: Negative or not required by law. Electronically signed by: Chino Fuentes M.D. 02/03/2023 1:39 PM Head CTA 02/03/23 12:47 HEAD & NECK CTA HISTORY: neuro deficit, acute stroke suspected TECHNIQUE: Multiaxial CT images of the head were performed following the intravenous administration of contrast to evaluate the major cerebral vessels. Multiaxial CT images of the neck were also performed following the intravenous administration of contrast to evaluate the major cervical vessels. Maximum intensity projection images were also obtained. A dose lowering technique was utilized adhering to the principles of ALARA. COMPARISON: Head CT 02/03/2023. FINDINGS: Redemonstration of the right DIGITAL SOLUTIONS ARCHITECT territory infarct involving the right posterior temporal lobe and right occipital lobe. There is a focal abrupt vascular cut off at the proximal right DIGITAL SOLUTIONS ARCHITECT on image 100 consistent with a site of occlusion. This corresponds to the right DIGITAL SOLUTIONS ARCHITECT territory infarct. The visualized intracranial internal carotid arteries, distal vertebral arteries, and basilar artery are widely patent. The left A1 segment is absent. This is likely developmental. There is mild to moderate narrowing at the left MCA bifurcation of up to 50%. Otherwise, the bilateral ACAs, right MCA, and left DIGITAL SOLUTIONS ARCHITECT show no significant stenosis, occlusion, or aneurysm. The aortic arch and proximal great vessels are widely patent. There is no significant stenosis, occlusion, or dissection identified within the bilateral common carotid, internal carotid, or vertebral arteries. IMPRESSION: 1. There is abrupt occlusion within the proximal right DIGITAL SOLUTIONS ARCHITECT corresponding to the acute right DIGITAL SOLUTIONS ARCHITECT territory infarct. 2. Mild to moderate narrowing at the left MCA bifurcation of up to 50%. 3. No significant stenosis, occlusion, or dissection identified within the carotid or vertebral arteries. ACT 112: Negative or not required by law. Electronically signed by: Chino Fuentes M.D. 02/03/2023 1:45 PM Neck CTA 02/03/23 12:47 HEAD & NECK CTA HISTORY: neuro deficit, acute stroke suspected TECHNIQUE: Multiaxial CT images of the head were performed following the intravenous administration of contrast to evaluate the major cerebral vessels. Multiaxial CT images of the neck were also performed following the intravenous administration of contrast to evaluate the major cervical vessels. Maximum intensity projection images were also obtained. A dose lowering technique was utilized adhering to the principles of ALARA. COMPARISON: Head CT 02/03/2023. FINDINGS: Redemonstration of the right DIGITAL SOLUTIONS ARCHITECT territory infarct involving the right posterior temporal lobe and right occipital lobe. There is a focal abrupt vascular cut off at the proximal right DIGITAL SOLUTIONS ARCHITECT on image 100 consistent with a site of occlusion. This corresponds to the right DIGITAL SOLUTIONS ARCHITECT territory infarct. The visualized intracranial internal carotid arteries, distal vertebral arteries, and basilar artery are widely patent. The left A1 segment is absent. This is likely developmental. There is mild to moderate narrowing at the left MCA bifurcation of up to 50%. Otherwise, the bilateral ACAs, right MCA, and left DIGITAL SOLUTIONS ARCHITECT show no significant stenosis, occlusion, or aneurysm. The aortic arch and proximal great vessels are widely patent. There is no significant stenosis, occlusion, or dissection identified within the bilateral common carotid, internal carotid, or vertebral arteries. IMPRESSION: 1. There is abrupt occlusion within the proximal right DIGITAL SOLUTIONS ARCHITECT corresponding to the acute right DIGITAL SOLUTIONS ARCHITECT territory infarct. 2. Mild to moderate narrowing at the left MCA bifurcation of up to 50%. 3. No significant stenosis, occlusion, or dissection identified within the carotid or vertebral arteries. ACT 112: Negative or not required by law. Electronically signed by: Chino Fuentes M.D. 02/03/2023 1:45 PM (2) Diabetes Diabetes mellitus complication status: with other specified complication Diabetes mellitus skilled nursing insulin use: unspecified skilled nursing insulin use status Diabetes mellitus type: type 2 Qualified Code(s): E11.69 - Type 2 diabetes mellitus with other specified complication
[2023-02-03] MEDS ORDERED: DEXTROSE 50% 50 ML SYRINGE IV PRN (18:36)
[2023-02-03] MEDS ORDERED: GLUCAGON FOR INJ 1 MG VIAL SQ PRN (18:36)
[2023-02-03] MEDS ORDERED: CARBOHYDRATES FOR HYPOGLYCEMIA PO PRN (18:36)
[2023-02-03] MEDS ORDERED: GLUCOSE 40% GEL 15 GM TUBE PO PRN (18:36)
[2023-02-03] MEDS ORDERED: GLUCOSE 10 TAB/TUBE PO PRN (18:36)
[2023-02-03] MEDS: INSULIN ASPART PER UNIT CHARGE SC SCH ×2 (19:51→19:52)
[2023-02-03] MEDS: ATORVASTATIN 40 MG TAB PO SCH (19:52)
[2023-02-03] MEDS: LANTUS PER UNIT CHARGE SQ SCH (20:02)
[2023-02-04] MEDS ORDERED: MoRPHine SULFATE 4 MG/ML 1 ML CARP\\VIAL IV PRN (00:10)
[2023-02-04] MEDS: oxyCODONE HCL IR 5 MG TAB (IMMEDIATE RELEASE) PO PRN ×3 (00:20→20:49)
[2023-02-04 06:14] LABS: Basophils # (auto) 0.04 K/uL (0-0.2); Basophils % (auto) 0.4 %; Eosinophils # (auto) 0.27 K/uL (0-0.50); Eosinophils % (auto) 2.6 %; Hematocrit (blood only) 37.8 % (42.0-52.0); Hemoglobin 13.3 g/dl (14.0-18.0); Immature Granulocytes # (auto) 0.05 K/uL (0.01-0.20); Immature Granulocytes % (auto) 0.5 %; Lymphocytes # (auto) 1.68 K/uL (1.2-3.4); Lymphocytes % (auto) 16.1 %; Mean Corpuscular Hemoglobin 31.2 pg (25.0-34.0); Mean Corpuscular Hgb Conc 35.2 g/dL (32.0-36.0); Mean Corpuscular Volume 88.7 fL (80.0-100.0); Mean Platelet Volume 9.7 fL (9.4-12.4); Monocytes # (auto) 0.58 K/uL (0.11-0.59); Monocytes % (auto) 5.6 %; Neutrophils # (auto) 7.79 K/uL (1.40-6.50); Neutrophils % (auto) 74.8 %; Platelet Count 283 K/uL (130-400); RDW Coefficient of Variation 12.3 % (11.5-14.5); RDW Standard Deviation 39.8 fL (36.4-46.3); Red Blood Count 4.26 M/uL (4.70-6.10); White Blood Count 10.41 K/ul (4.8-10.8)
[2023-02-04 06:29] LABS: BUN Creatinine Ratio 21.4 (10-20); Chol HDL Ratio 4.3 (0-5); Creatinine Clr Calc Pharmacy 142.8 ml/min; Est GFR (African American) 114.8 ml/min
[2023-02-04 07:14] LABS: Estimated Average Glucose 232 mg/dl; Hemoglobin A1C 9.7 % (4.5-5.6)
[2023-02-04] MEDS: ATORVASTATIN 40 MG TAB PO SCH (08:50)
[2023-02-04] MEDS: LORATADINE 10 MG TAB PO SCH (08:50)
[2023-02-04] MEDS: INSULIN ASPART PER UNIT CHARGE SC SCH ×4 (08:54→20:48)
[2023-02-04] MEDS: LANTUS PER UNIT CHARGE SQ SCH ×2 (08:54→20:49)
[2023-02-04] MEDS ORDERED: ASPIRIN 81 MG ECTAB PO SCH (09:00)
--- NOTE | 2023-02-04 09:43 | Neurology Consultation ---
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 He also has some mild associated numbness of the left upper limb and along the posterior lip implicating some involvement of the right thalamus as well which is also within the HVAC REFRIGERATION TECHNICIAN territory. He does not have any upper motor neuron or corticospinal signs or symptoms. He does not have any signs or symptoms suggestive of brainstem or cerebellar stroke. Stroke risk factors for this patient include chewing tobacco use, poorly controlled diabetes mellitus, hypertension, and dyslipidemia. Follow-up with results of brain MRI. If no evidence of hemorrhagic transformation or significant cytotoxic edema, would recommend dual antiplatelet therapy for 3 weeks consisting of aspirin 81 mg/day and clopidogrel 75 mg/day. Would then transition to clopidogrel 75 mg/day monotherapy. Would recommend 30-day mobile cardiac outpatient telemetry. Fortunately, he does not have any motor deficits and his sensory loss to the left upper limb and left lower lip are mild, I expect this particular symptom to improve. Unfortunately, however, he will not be able to drive following a stroke of this type due to his dense homonymous hemianopsia. He should follow-up with his chief i dispatcher or repairer maintenance building for further monitoring of his visual frausto. He will need improved control of his diabetes mellitus going forward, as well as ongoing monitoring of his hypertension. I agree with the addition of atorvastatin 40 mg/day, goal LDL 70 or less. Continue to allow for permissive hypertension, systolic blood pressure 140 to 160 mmHg. However, given that the majority of his stroke is likely 2 weeks old, it should be safe to resume his antihypertensive medication. Long-term blood pressure goal of less than 130/80. No further neurologic recommendations. History of Present Illness Reason for Consultation: stroke Requesting Physician: Tari Olivier MD Attending Physician: Michael Carcamo MD History of Present Illness The patient is a 67-year-old male who presented to the emergency department yesterday with a chief complaint of vision loss to the left visual field that he noted upon awakening 2 weeks ago. This symptom has been persistent. He also complains of associated intermittent headache and 2 days prior to presentation, he noticed mild numbness affecting the left upper limb, elbow to the hand. He denies associated weakness or motor or sensory symptoms affecting the left lower limb. He also complains of associated numbness affecting the left lower lip, both the left and right side, no numbness inside the mouth or along the tongue. He denies experiencing any double vision, change in speech, or vertigo. He has been hypertensive. A CT of the head revealed an acute to subacute right HVAC REFRIGERATION TECHNICIAN territory infarct within the right posterior temporal lobe and extending into the right occipital lobe. No hemorrhagic transformation. A CTA of the head and neck revealed an abrupt occlusion within the proximal right HVAC REFRIGERATION TECHNICIAN and mild to moderate narrowing of the left MCA bifurcation up to 50%. I did independently review these images and was able to appreciate these findings including the relatively large right HVAC REFRIGERATION TECHNICIAN infarct without evidence of hemorrhagic transformation or significant mass effect. A brain MRI is pending at this time. A CBC was unremarkable. He does have a modest elevation in ESR, 46. There is mild hyponatremia, sodium 133. Glucose is elevated, 181. Hemoglobin A1c 9.7. A lipid panel was reviewed as well, triglycerides 72, cholesterol 132, LDL 87, VLDL 14, HDL 31. An electrocardiogram reveals a normal sinus rhythm and right bundle branch block. An echocardiogram completed this morning was technically difficult, EF 60 to 65%, mild LVH, no regional wall motion abnormalities. No interatrial shunt with injection of contrast. Left atrial size normal. Allergies Allergy/AdvReac Type Severity Reaction Status Date / Time grass pollen Allergy Sneezing Verified 02/03/23 16:35 lisinopril AdvReac Intermediate Cough Verified 02/03/23 16:35 Home Medications Medication Instructions Recorded Confirmed Type dulaglutide 3 mg/0.5 mL 3 mg subcut WK 03/25/22 02/03/23 History subcutaneous pen injector (Trulicity) metformin 1,000 mg tablet 1,000 mg PO BID 03/25/22 02/03/23 History acetaminophen 325 mg tablet 650 mg PO Q4H PRN pain #30 tabs 04/11/22 02/03/23 Rx amlodipine 5 mg tablet 5 mg PO DAILY #30 tabs 04/11/22 02/03/23 Rx losartan 100 mg tablet 100 mg PO QAM #30 tabs 04/11/22 02/03/23 Rx aspirin 81 mg tablet,delayed 81 mg PO DAILY 02/03/23 02/03/23 History release loratadine 10 mg tablet 10 mg PO QAM 02/03/23 02/03/23 History Patient History Medical History Abnormal ultrasound Diabetes mellitus, type II Dyslipidemia Epididymoorchitis HTN (hypertension) Hypokalemia Hyponatremia Surgical History History of incision and drainage Family History Other Breast cancer Coronary heart disease Diabetes Hypertension Social History Smoking Status: Never smoker Tobacco Type: Smokeless Tobacco (Dip or Chew) Second Hand Exposure: No; Do You Dip or Chew Tobacco: Yes; Tobacco Cessation Education Requested by Patient: No Hx Alcohol Use: No Hx Substance Use: No Preferred Language: Tamazight Communication Ability: Effective Restaurant Area Manager Required: No Beliefs That Will Affect Care: None marital status: Current Living Situation: Spouse Other Information That Helps Us Care for You: No Feels Safe at Home: Yes Assistive Devices: Glasses Review of Systems Constitutional: no fever and no chills Eyes: as per Subjective / HPI and + blind spots; no diplopia and no eye pain Ear, Nose, Mouth, Throat: no hearing loss Respiratory: no cough and no dyspnea Cardiovascular: no chest pain and no palpitations Gastrointestinal: no nausea and no vomiting Genitourinary: no urinary incontinence Musculoskeletal: no neck pain and no myalgia Integumentary: no rash and no lesions Neurologic: as per Subjective / HPI and + loss of sensation; no gait abnormality and no localized weakness Psychiatric: no depression and no anxiety Hematologic / Lymphatic: no easy bleeding and no easy bruising Exam (Neuro) Constitutional: well developed and well nourished; no acute distress Eyes: PERRL and EOM intact bilaterally; + abnormal visual field confrontation and no papilledema Cardiovascular: Vessels: no carotid bruit Neurologic: Oriented to:: Person, Place and Time Memory: Short Term Intact and Remote Intact Attention: Span Intact and Concentration Intact Speech Fluency: negative Dysarthria or Dysfluency Speech Aphasia: negative Aphasia Fund of Knowledge: Current Events, Past History and Vocabulary Cranial Nerves: Normal III, IV, , V, VII, VIII, IX, X, XI and XII; Abnorm II (Left visual field deficit noted with confrontation testing) Motor Strength: Normal Lower Extremities and Normal Upper Extremities Motor Tone: Normal Lower Extremities and Normal Upper Extremities Muscle Bulk/Involuntary Movements: No Involuntary Movements; negative Muscle Atrophy Sensation: Light Touch Intact, Pain/Temperature Intact, Vibration Intact and Proprioception Intact Coordination: Normal; negative Limited Balance, Dysdiadochokinesia, Finger-Nose Abnormal or Heel-Huffman Abnormal Deep Tendon Reflexes: Rt Triceps: 1+, Lt Triceps: 1+, Rt Biceps: 1+, Lt Biceps: 1+, Rt Brachioradialis: 1+, Lt Brachioradialis: 1+, Rt Patellar: 1+, Lt Patellar: 1+, Rt Ankle: 1+ and Lt Ankle: 1+ Special Tests: negative Babinski Present Gait: Normal Station and Gait Results & Data Vital Signs (Past 12 Hours) Vital Signs Temp Pulse Pulse Resp BP Pulse Ox O2 Del Method 02/04/23 07:49 36.8 C 82 18 159/85 H 95 Room Air 02/04/23 08:00 72 02/04/23 04:00 36.8 C 81 16 144/81 H 92 Room Air 02/03/23 23:00 69 02/04/23 00:00 36.7 C 78 16 138/80 94 Room Air Coding Level of Care Code 50235 INT INP/OBS CARE 3/75MIN Diagnoses Acute ischemic right HVAC REFRIGERATION TECHNICIAN stroke I63.531 Homonymous 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
--- NOTE | 2023-02-04 11:51 | Hospitalist Progress Note ---
Date of Service February 04, 2023 Assessment & Plan (1) Acute ischemic right 911 TELECOMMUNICATOR stroke: (2) Homonymous hemianopsia due to recent cerebral infarction: (3) Diabetes: (4) Dyslipidemia: (5) HTN (hypertension): (6) Tobacco use disorder: Plan 66yoM with PMHx of DMII with retinopathy, HTN, dyslipidemia not currently on statin, chronic tobacco use, h/o perianal/scrotal abscess admitted with a R [employer] [address] stroke. CT head 1. Acute to subacute right 911 TELECOMMUNICATOR territory infarct. 2. No intracranial hemorrhage at this time. CTA head and neck 1. There is abrupt occlusion within the proximal right 911 TELECOMMUNICATOR corresponding to the acute right 911 TELECOMMUNICATOR territory infarct. 2. Mild to moderate narrowing at the left MCA bifurcation of up to 50%. 3. No significant stenosis, occlusion, or dissection identified within the carotid or vertebral arteries. Right 911 TELECOMMUNICATOR stroke with left homonymous hemianopia Symptoms ongoing for 2 weeks- out of therapeutic window for any intervention. Saw an outreach associate last week and states his vision loss was attributed to his diabetic retinopathy. However, he states the eye disturbance was so bad that he stopped driving as he was concerned that his vision and a blind spot. He presented to the ED 02/03 due to the persistence of his symptoms. Head CT, head and neck CTA showed abrupt occlusion of the right 911 TELECOMMUNICATOR with mass effect noted on the right lateral ventricle. Echocardiogram and telemetry unremarkable MRI brain pending Seen by neuro- recommendations noted- if no evidence of hemorrhagic transformation or significant cytotoxic edema, dual antiplatelet therapy for 3 weeks with aspirin 81 mg/day and clopidogrel 75 mg/day, then transition to clopidogrel 75 mg/day monotherapy. Continue aspirin/lipitor for now- Follow up with MRI brain for further management Needs better control of his HTN and DM. Goal SBP <130/80, Goal LDL <70 Needs holter/zio patch as OP for 30 days No more driving. He will need follow up with his eye doctor for further monitoring of his visual frausto OP follow up with neurology Uncontrolled DMII with retinopathy- A1c 9.7 Hold home metformin and trulicity Continue lantus, SSI Will need better control of his DM Consult para educator HTN- resume home meds. No further need for permissive HTN. Needs better control of HTN Chronic Tobacco Use Pt chews tobacco, states 1 can a week for the past 30-40 years recommended quitting given his stroke. DVT prophylaxis: SCDs Dispo: Pending MRI brain, PT OT eval Admission and Anticipated Discharge Date Admission Date: February 03, 2023 Subjective Patient was seen and examined at bedside. His left eye vision issues has been there for 2 weeks and about his. His left hand and perioral numbness has been there for a week but improving. No other neurological symptoms. No dysphagia, dysarthria, weakness, diplopia. He stopped driving 2 weeks ago because of his vision issue. Review of Systems Review of Systems: All systems reviewed & are unremarkable except as noted in Subjective Physical Exam Physical Exam: General: Lying comfortably in bed, not in distress, on room air HEENT: EOMI, THADDEUS, MMM Chest: Clear breath sounds bilaterally, no wheezes or crackles CVS: Regular rate and rhythm, normal heart sounds, no murmur Abdomen: Soft, non tender, not distended, normal bowel sounds Neuro: Awake, alert, oriented, conversing well. Left homonymous hemianopia on confrontation testing. Strength 5/5. Sensation grossly intact Extremities: No cyanosis, clubbing or edema Results & Data Results & Data Vital Signs (Past 12 Hours) Vital Signs Temp Pulse Pulse Resp BP Pulse Ox O2 Del Method 02/04/23 07:49 36.8 C 82 18 159/85 H 95 Room Air 02/04/23 08:00 72 02/04/23 04:00 36.8 C 81 16 144/81 H 92 Room Air 02/04/23 00:00 36.7 C 78 16 138/80 94 Room Air Laboratory Results Short CBC 02/03/23 02/04/23 Range/Units 12:42 05:44 WBC 10.64 10.41 (4.8-10.8) K/ul Hgb 14.0 13.3 L (14.0-18.0) g/dl Hct 38.8 L 37.8 L (42.0-52.0) % Plt Count 279 283 (130-400) K/uL BMP 02/03/23 02/04/23 12:42 05:44 Sodium 134 L 133 L Potassium 4.2 4.0 Chloride 102 100 Carbon Dioxide 25 26 BUN 15 15 Creatinine 0.70 0.70 Glucose 217 H 175 H Calcium 9.4 9.0 Liver Function 02/03/23 Range/Units 12:42 Total Bilirubin 1.3 H (0.2-1.0) mg/dl AST 15 (13-39) U/L ALT 18 (7-52) U/L Alkaline Phosphatase 87 (34-104) U/L Albumin 4.2 (3.4-5.0) gm/dl Medications Administered Current Inpatient Medications Acetaminophen (Acetaminophen 325 Mg Tab) 650 mg PO Q6H PRN PRN Reason: Fever/Pain Stop: 03/06/23 00:09 Aspirin (Aspirin 81 Mg Ectab) 81 mg PO [facility] Stop: 03/06/23 08:59 Last Admin: 02/04/23 09:29 Dose: 81 mg Atorvastatin Calcium (Atorvastatin 40 Mg Tab) 40 mg PO [facility] Stop: 03/05/23 18:35 Last Admin: 02/04/23 08:50 Dose: 40 mg Dextrose (Dextrose 50% 50 Ml Syringe) 25 - 50 ml IV UD PRN; Protocol PRN Reason: Hypoglycemia Protocol Stop: 03/05/23 18:35 Glucagon (Glucagon For Inj 1 Mg Vial) 1 mg SQ UD PRN; Protocol PRN Reason: Hypoglycemia Protocol Stop: 03/05/23 18:35 Glucose (Glucose 10 Tab/Tube) 4 - 8 tab PO UD PRN; Protocol PRN Reason: Hypoglycemia Treatment Stop: 03/05/23 18:35 Glucose (Glucose 40% Gel 15 Gm Tube) 15 - 30 gm PO UD PRN; Protocol PRN Reason: Hypoglycemia Protocol Stop: 03/05/23 18:35 Promethazine HCl 12.5 mg/ (Sodium Chloride) 50.5 mls @ 202 mls/hr IV Q6H PRN PRN Reason: Nausea And Vomiting Stop: 03/06/23 00:09 Insulin Aspart (Insulin Aspart Per Unit Charge) 0 units SC ACHS [facility] Stop: 03/05/23 18:35 Last Admin: 02/04/23 08:54 Dose: 8 units Insulin Glargine (Lantus Per Unit Charge) 12 units SQ BID [facility] Stop: 03/05/23 20:59 Last Admin: 02/04/23 08:54 Dose: 12 units Loratadine (Loratadine 10 Mg Tab) 10 mg PO [facility] Stop: 03/06/23 08:59 Last Admin: 02/04/23 08:50 Dose: 10 mg Meclizine HCl (Meclizine 12.5 Mg Tab) 12.5 mg PO TID PRN PRN Reason: dizziness Stop: 03/06/23 11:20 Miscellaneous (Carbohydrates For Hypoglycemia ) 15 - 30 gm PO UD PRN PRN Reason: Hypoglycemia Protocol Stop: 03/05/23 18:35 Miscellaneous Information (Pharmacist Discharge Med Rec Consult) 1 each N/A UD PRN PRN Reason: Consult Stop: 03/05/23 14:30 Morphine Sulfate (Morphine Sulfate 4 Mg/Ml 1 Ml Carp\Vial) 4 mg IV Q4H PRN PRN Reason: Pain Stop: 02/18/23 00:09 Oxycodone HCl (Oxycodone Hcl Ir 5 Mg Tab (Immediate Release)) 5 - 10 mg PO QID PRN PRN Reason: Pain Stop: 02/18/23 00:09 Last Admin: 02/04/23 07:38 Dose: 10 mg (3) Diabetes Diabetes mellitus complication status: with other specified complication Diabetes mellitus termite exterminator helper insulin use: unspecified prison insulin use status Diabetes mellitus type: type 2 Qualified Code(s): E11.69 - Type 2 diabetes mellitus with other specified complication
[2023-02-04] MEDS: MECLIZINE 12.5 MG TAB PO PRN (12:17)
[2023-02-04] MEDS: LOSARTAN POTASSIUM 50 MG TAB PO SCH (12:22)
[2023-02-04] MEDS: PROMETHAZINE HCL 12.5 MG in SODIUM CHLORIDE 0.9% 50 ML IV PRN (13:26)
[2023-02-04] MEDS: ACETAMINOPHEN 325 MG TAB PO PRN (15:39)
[2023-02-04] MEDS ORDERED: GADOBUTROL 65ML VIAL IV ONE (17:16)
--- NOTE | 2023-02-04 17:38 | Magnetic Resonance Report ---
MRI OF THE BRAIN COMBO CLINICAL HISTORY: Stroke. COMPARISON STUDY: CT of the brain dated 02/03/2023. TECHNIQUE: MRI of the brain was performed utilizing various T1 and T2-weighted sequences in the axial , sagittal, and coronal planes. Contrast-enhanced sequences were acquired following the administratio n of 13 cc of Gadavist. FINDINGS: Brain parenchyma: There is restricted diffusion throughout the right posterior cerebral artery territ ory consistent with a large subacute ASSEMBLER PRODUCTION LINE infarct. No additional foci of restricted diffusion are iden tified. Serpiginous T1 hyperintensity along the posterior aspect of the infarct could represent kevin ar necrosis versus trace petechial hemorrhage. There is edema around the infarct, as well as nonspeci fic patchy enhancement. No enhancing mass lesion is identified on the postcontrast images. There is m ild subcortical and periventricular microangiopathic disease. No extra-axial fluid collection is seen . A 3.4 cm arachnoid cyst is noted in the right anterior temporal fossa. The cerebellar tonsils are n ormal in configuration. Ventricles, sulci, and cisterns: Normal in configuration. Pituitary and sella: Unremarkable. Intracranial vasculature: Normal flow voids are maintained at the skull base. Orbits: The bony orbits are grossly intact. Orbital contents are normal in appearance. Sinuses and mastoids: There is trace left mastoid effusion. The right mastoid air cells and paranasal sinuses are clear. Calvarium: Unremarkable. Cervical cord: Partially visualized cervical spinal cord is normal in morphology and signal intensity . IMPRESSION: 1. There is a large subacute/evolving right ASSEMBLER PRODUCTION LINE territory infarct. 2. There is a small amount of serpiginous T1 signal hyperintensity along the infarcted cortex. This l ikely represents laminar necrosis. A small amount of petechial hemorrhage is not excluded. 3. There is edema around the infarcted territory with nonspecific patchy enhancement. This is likely related to subacute stroke. A follow-up MRI in 4-6 weeks is recommended for reassessment. 4 No additional foci of acute ischemia are identified. No midline shift is seen. 5. Additional findings as above. ACT 112: Negative or not required by law. Electronically signed by: Atilio Moreau M.D. 02/04/2023 5:36 PM
--- NOTE | 2023-02-04 20:31 | Communication Note ---
Date of Service: February 04, 2023 8:20 PM Notified by RN of MRI result. 1. There is a large subacute/evolving right LETTUCE CUTTER territory infarct. 2. There is a small amount of serpiginous T1 signal hyperintensity along the infarcted cortex. This likely represents laminar necrosis. A small amount of petechial hemorrhage is not excluded. 3. There is edema around the infarcted territory with nonspecific patchy enhancement. This is likely related to subacute stroke. A follow-up MRI in 4-6 weeks is recommended for reassessment. 4 No additional foci of acute ischemia are identified. No midline shift is seen. Patient with usual headache symptoms as per RN. AP Ischemic stroke with possible hemorrhagic conversion on CT Hold aspirin for now. Repeat CT head after 12 hours. Will relay to AM provider.
[2023-02-05] MEDS: ACETAMINOPHEN 325 MG TAB PO PRN ×2 (00:23→08:59)
[2023-02-05] MEDS: PROMETHAZINE HCL 12.5 MG in SODIUM CHLORIDE 0.9% 50 ML IV PRN (01:13)
[2023-02-05] MEDS: MECLIZINE 12.5 MG TAB PO PRN ×2 (05:11→08:58)
[2023-02-05 05:25] LABS: Basophils # (auto) 0.05 K/uL (0-0.2); Basophils % (auto) 0.5 %; Eosinophils # (auto) 0.09 K/uL (0-0.50); Eosinophils % (auto) 0.9 %; Hematocrit (blood only) 37.6 % (42.0-52.0); Hemoglobin 13.3 g/dl (14.0-18.0); Immature Granulocytes # (auto) 0.03 K/uL (0.01-0.20); Immature Granulocytes % (auto) 0.3 %; Lymphocytes # (auto) 1.86 K/uL (1.2-3.4); Lymphocytes % (auto) 18.2 %; Mean Corpuscular Hemoglobin 31.7 pg (25.0-34.0); Mean Corpuscular Hgb Conc 35.4 g/dL (32.0-36.0); Mean Corpuscular Volume 89.7 fL (80.0-100.0); Mean Platelet Volume 9.7 fL (9.4-12.4); Monocytes # (auto) 0.64 K/uL (0.11-0.59); Monocytes % (auto) 6.3 %; Neutrophils # (auto) 7.53 K/uL (1.40-6.50); Neutrophils % (auto) 73.8 %; Platelet Count 279 K/uL (130-400); RDW Coefficient of Variation 12.3 % (11.5-14.5); RDW Standard Deviation 39.9 fL (36.4-46.3); Red Blood Count 4.19 M/uL (4.70-6.10)
[2023-02-05] MEDS ORDERED: METOCLOPRAMIDE HCL INJ 5 MG/ML 2 ML VIAL IV ONE (05:26)
[2023-02-05 05:38] LABS: Calcium 9.4 mg/dl (8.6-10.3); Creatinine Clr Calc Pharmacy 136.9 ml/min; Est GFR (African American) 112.8 ml/min; Est GFR (Non-African American) 97.3 ml/min; Potassium 3.6 mmol/L (3.5-5.1)
--- NOTE | 2023-02-05 07:21 | CT Scan Report ---
HEAD CT NONCONTRAST CT DOSE: 800.63 mGy.cm HISTORY: Follow-up intracranial hemorrhage. TECHNIQUE: Multiaxial CT images of the head were performed without the use of intravenous contrast. A utomated exposure control was utilized for this study. A dose lowering technique was utilized adheri ng to the principles of ALARA. Comparison: Head CT 02/03/2023. Findings: The paranasal sinuses and mastoid air cells are clear. There is again noted an evolving lar ge right TOY ELECTRIC TRAIN REPAIRER territory infarct. This is similar to the prior study. Subtle tiny foci of increased den sity along the posterior aspect of the infarct best seen on image 11 could represent petechial hemorr kel/laminar necrosis described on the prior brain MRI. This remains unchanged. No mass or midline sh ift identified. No additional acute infarcts. Small arachnoid cyst within the right middle cranial fo ssa again noted. Impression: No significant change in the evolving large right TOY ELECTRIC TRAIN REPAIRER territory infarct. Subtle tiny foci of increase d density along the posterior aspect of the infarct could represent the petechial hemorrhage/laminar necrosis described on the prior brain MRI. This remains unchanged. ACT 112: Negative or not required by law. Electronically signed by: Chino Fuentes M.D. 02/05/2023 7:18 AM
[2023-02-05] MEDS: ATORVASTATIN 40 MG TAB PO SCH (08:58)
[2023-02-05] MEDS: LOSARTAN POTASSIUM 50 MG TAB PO SCH (08:58)
[2023-02-05] MEDS: LORATADINE 10 MG TAB PO SCH (08:58)
[2023-02-05] MEDS ORDERED: amLODIPine BESYLATE 5 MG TAB PO SCH (09:00)
[2023-02-05] MEDS: LANTUS PER UNIT CHARGE SQ SCH (09:03)
[2023-02-05] MEDS: INSULIN ASPART PER UNIT CHARGE SC SCH ×2 (09:03→12:35)
--- NOTE | 2023-02-05 09:14 | Neurology Progress Note ---
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 Clinically he is doing well except for the vision deficits to the left. He has no weakness or dysesthesias currently. Stroke risk factors for this patient include chewing tobacco use, poorly controlled diabetes mellitus, hypertension, and dyslipidemia. CT and MRI show stable stroke with some tiny petechial hemorrhage/laminar necrosis and no gerardo hemorrhage. Recommendations: 1. control blood pressure as you are doing, aiming for a mean arterial pressure of approximately 95-100. 2. patient cannot drive until cleared by Ophthalmology. he should follow up with Ophthalmology after discharge. 3. Continue atorvastatin 40 mg daily. 4. initiate clopidogrel 75 mg daily. I would not continue aspirin at this time ( no dual antiplatelet therapy) due to the size of the stroke and petechial hemorrhage 5. Increase activity as able. I have no further neurologic recommendations to make at this time otherwise overall, I spent a total of 50 minutes with this case including review of records, review of CT and MRI films, direct evaluation the patient at bedside, reports generation, and discussion case with the patient an RN at bedside as well as Dr. Carcamo, including differential diagnosis and treatment options. Admission and Anticipated Discharge Date Admission Date: February 03, 2023 Subjective patient feels well today except for little bit of nausea. He has not vomited. He has no headache, weakness, or numbness of the limbs. He feels that his vision may be slightly better as he looks off to the left. He knows he still has a PICC deficit to that side however. Patient tells me that he had a vision problem for about 2 weeks prior to coming to the emergency room. MRI of the brain February 04 showed a large subacute, involving right MORTGAGE LOAN UNDERWRITER territory infarct. There is a very small amount of laminar necrosis / petechial hemorrhage only. There is some edema in a patchy nonspecific area. There are no other areas of old ischemia. CT angiography revealed 50% stenosis of the left middle cerebral artery with neck vessels being unremarkable. A repeat CT scan of the head this morning showed petechial hemorrhage /laminar necrosis of the small nature also. The stroke was stable. CBC and Chem profile were largely unremarkable. Blood pressure is 165/80 he is afebrile. Results & Data Vital Signs (Past 12 Hours) Vital Signs Temp Pulse Pulse Resp BP Pulse Ox O2 Del Method 02/05/23 07:49 36.6 C 80 18 165/89 H 96 Room Air 02/05/23 06:00 65 02/05/23 03:32 36.8 C 74 20 160/78 H 93 Room Air 02/04/23 23:00 81 02/04/23 23:12 36.8 C 85 20 158/71 H 93 Room Air Exam (Neuro) Physical Exam: He is awake and alert. Speech is without obvious a facial or dysarthria. He is pleasant and cooperative and follows commands well. There is no sign of encephalopathy. Extraocular muscles are intact without nystagmus. He has a rather dense left homonymous hemianopsia to near midline. The right vision is normal. Pupils are 4 mm bilaterally reactive to light. There is no facial droop and tongue is midline. Coordination is normal in the arms without tremor or ataxia. Strength is essentially 5/5 in all major muscle groups in arms and legs both proximally distally with good tone and no atrophy. Facility is good hands bilaterally. PG Care Time/CCT Total # of Minutes Spent Total Time Spent with Patient: Total time spent is greater than 50% in coordination of care (as documented) at patient's floor/unit and/or counseling patient: Coding Level of Care Code 35927 SUB INP/OBS CARE 3/50MIN Diagnoses Acute ischemic right MORTGAGE LOAN UNDERWRITER stroke I63.531 Homonymous 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
[2023-02-05] MEDS ORDERED: CLOPIDOGREL BISULFATE 75 MG TAB PO SCH (09:30)
[2023-02-05] MEDS ORDERED: oxyCODONE HCL IR 5 MG TAB (IMMEDIATE RELEASE) PO PRN (09:58)
--- NOTE | 2023-02-05 10:14 | Pharmacy Report ---
- Date of Service February 05, 2023 - Pharmacy CVA/TIA Medication Review Medications to Prevent Stroke handout has been added to the patients discharge packet. Antiplatelet(s) * clopidogrel 75 mg PO daily Cholesterol * High intensity statin: atorvastatin 40 mg daily DVT Prophylaxis * SCD knee Therapeutic Anticoagulation * No history of Afib/Aflutter noted Type 2 Diabetes * Patient has T2DM and patient is prescribed dulaglutide
[2023-02-05] MEDS ORDERED: STROKE PATIENT DISCHARGE STA (12:26)
--- NOTE | 2023-02-05 13:27 | Discharge Summary ---
Date of Service February 05, 2023 Admission HPI Per Admitting Provider 66yoM with PMHx of DMII with retinopathy, HTN, dyslipidemia not currently on statin, chronic tobacco use, h/o perianal/scrotal abscess admitted with a R [employer] stroke. States that two Sundays ago, on January 21 he woke up with vision loss in the left eye. He also had been having headaches which he states resolved with gait instability. Two days ago he however noted left hand numbness and tingling up to his left elbow. States that he is not currently on a statin as he never got it refilled. He notes that he has been taking his blood pressure medications as prescribed. He states he chews tobacco, about 1 can a week and has done that since he was a teenager. States he takes his Trulicity every Sunday and his metformin daily. Per [facility] chart review his last hgba1c was about 6 months ago and was 7.8. Pt denies any chest pain, SOB, slurred speech or difficulty swallowing. Admission Exam Per Admitting Provider General: Alert, oriented. No acute distress Skin: No noted rashes or bruises Psych: Appropriate mood and affect Neuro: Visual loss in left eye with right eye covered, EOMI, slight weakness in LUE HEENT: NC/AT, EOMI, oropharynx moist. Chest: Nontender to palpation. CV: RRR Resp: Breath sounds clear bilaterally, no increased effort of breathing. No crackles/rhonchi/rales. Abdomen: BS+. Soft, nontender, nondistended. No guarding. No organomegaly appreciated. Extremities: Moves all extremities appropriately bilaterally. Principal Diagnosis Subacute right [employer] stroke with left homonymous hemianopia Discharge Exam General: Lying comfortably in bed, not in distress, on room air HEENT: EOMI, THADDEUS, MMM Chest: Clear breath sounds bilaterally, no wheezes or crackles CVS: Regular rate and rhythm, normal heart sounds, no murmur Abdomen: Soft, non tender, not distended, normal bowel sounds Neuro: Awake, alert, oriented, conversing well. Left homonymous hemianopia on confrontation testing. Strength 5/5. Sensation grossly intact Extremities: No cyanosis, clubbing or edema Discharge Data Allergies Allergy/AdvReac Type Severity Reaction Status Date / Time grass pollen Allergy Sneezing Verified 02/03/23 16:35 lisinopril AdvReac Intermediate Cough Verified 02/03/23 16:35 Consultations 02/03/23 14:16 ED Decision to Admit Stat 02/03/23 14:31 Consult Neurology Routine Ordered Studies 02/03/23 12:23 CT head/brain wo con Stat 02/03/23 12:47 CT angio head w con Stat CT angio neck with con Stat 02/04/23 09:06 MRI Brain [MR brain wo/w con] Urgent 02/05/23 05:00 CT head/brain wo con Urgent Laboratory Results WBC 10.20 K/ul (4.8-10.8) 02/05/23 04:38 RBC 4.19 M/uL (4.70-6.10) L 02/05/23 04:38 Hgb 13.3 g/dl (14.0-18.0) L 02/05/23 04:38 POC Hgb 13.9 g/dl (14.0-18.0) L 02/03/23 12:54 Hct 37.6 % (42.0-52.0) L 02/05/23 04:38 POC Hct 41 % (42-52) L 02/03/23 12:54 MCV 89.7 fL (80.0-100.0) 02/05/23 04:38 MCH 31.7 pg (25.0-34.0) 02/05/23 04:38 MCHC 35.4 g/dL (32.0-36.0) 02/05/23 04:38 RDW Std Deviation 39.9 fL (36.4-46.3) 02/05/23 04:38 RDW Coeff of Robert 12.3 % (11.5-14.5) 02/05/23 04:38 Plt Count 279 K/uL (130-400) 02/05/23 04:38 MPV 9.7 fL (9.4-12.4) 02/05/23 04:38 Immature Gran % (Auto) 0.3 % 02/05/23 04:38 Neut % (Auto) 73.8 % 02/05/23 04:38 Lymph % (Auto) 18.2 % 02/05/23 04:38 Cooke % (Auto) 6.3 % 02/05/23 04:38 Eos % (Auto) 0.9 % 02/05/23 04:38 Baso % (Auto) 0.5 % 02/05/23 04:38 Neut # (Auto) 7.53 K/uL (1.40-6.50) H 02/05/23 04:38 Lymph # (Auto) 1.86 K/uL (1.2-3.4) 02/05/23 04:38 Cooke # (Auto) 0.64 K/uL (0.11-0.59) H 02/05/23 04:38 Eos # (Auto) 0.09 K/uL (0-0.50) 02/05/23 04:38 Baso # (Auto) 0.05 K/uL (0-0.2) 02/05/23 04:38 Immature Gran # (Auto) 0.03 K/uL (0.01-0.20) 02/05/23 04:38 ESR 46 mm/hr (0-20) H 02/04/23 05:44 PT 10.6 Seconds (9.0-12.0) 02/03/23 12:42 INR 1.0 (0.9-1.1) 02/03/23 12:42 APTT 26.1 Seconds (21.0-31.0) 02/03/23 12:42 PTT Ratio 0.9 02/03/23 12:42 POC Sodium 138 mmol/L (135-144) 02/03/23 12:54 Sodium 133 mmol/L (136-145) L 02/05/23 04:38 POC Potassium 4.3 mmol/L (3.3-5.0) 02/03/23 12:54 Potassium 3.6 mmol/L (3.5-5.1) 02/05/23 04:38 POC Chloride 101 mmol/L (101-112) 02/03/23 12:54 Chloride 98 mmol/L (98-107) 02/05/23 04:38 Carbon Dioxide 26 mmol/L (21-32) 02/05/23 04:38 POC Total CO2 23 mmol/L (24-31) L 02/03/23 12:54 Anion Gap 9 (3-11) 02/05/23 04:38 POC Anion Gap 19.0 mmol/L (16-25) 02/03/23 12:54 POC BUN 14 mg/dl (7-18) 02/03/23 12:54 BUN 19 mg/dl (6-23) 02/05/23 04:38 Creatinine 0.73 mg/dl (0.6-1.4) 02/05/23 04:38 POC Creatinine 0.6 mg/dl (0.6-1.3) 02/03/23 12:54 Est Cr Clr Drug Dosing 136.9 ml/min 02/05/23 04:38 Est GFR ( Amer) 112.8 ml/min 02/05/23 04:38 Est GFR (Non-Af Amer) 97.3 ml/min 02/05/23 04:38 BUN/Creatinine Ratio 26.0 (10-20) H 02/05/23 04:38 Glucose 181 mg/dl (70-99(Fasting)) H 02/05/23 04:38 POC Glucose 263 mg/dl (70-99) H 02/05/23 11:43 POC Glucose (other) 218 mg/dl (70-99) H 02/03/23 12:54 Estimat Average Glucose 232 mg/dl 02/04/23 05:44 Hemoglobin A1c 9.7 % (4.5-5.6) H 02/04/23 05:44 Calcium 9.4 mg/dl (8.6-10.3) 02/05/23 04:38 POC Ioniz Calcium Rodolfo 1.19 mmol/l (1.12-1.32) 02/03/23 12:54 Magnesium 1.9 mg/dl (1.7-2.4) 02/03/23 12:42 Total Bilirubin 1.3 mg/dl (0.2-1.0) H 02/03/23 12:42 AST 15 U/L (13-39) 02/03/23 12:42 ALT 18 U/L (7-52) 02/03/23 12:42 Alkaline Phosphatase 87 U/L (34-104) 02/03/23 12:42 Troponin I High Sens 3.8 pg/ml (0-20) 02/03/23 12:42 Total Protein 7.9 gm/dl (6.0-8.3) 02/03/23 12:42 Albumin 4.2 gm/dl (3.4-5.0) 02/03/23 12:42 Globulin 3.7 gm/dl (2.5-4.0) 02/03/23 12:42 Albumin/Globulin Ratio 1.1 (0.9-2) 02/03/23 12:42 Triglycerides 72 mg/dl (0-150) 02/04/23 05:44 Cholesterol 132 mg/dl (0-200) 02/04/23 05:44 LDL Cholesterol, Calc 87 mg/dl 02/04/23 05:44 VLDL Cholesterol, Calc 14 mg/dl (0-30) 02/04/23 05:44 HDL Cholesterol 31 mg/dl 02/04/23 05:44 Cholesterol/HDL Ratio 4.3 (0-5) 02/04/23 05:44 SARS-CoV-2, RNA, NAAT NEGATIVE (NEGATIVE) 02/03/23 16:25 Impressions Chest X-Ray 02/03/23 12:23 XR chest 1V portable HISTORY: Stroke symptoms. Neurologic deficit. COMPARISON: None. FINDINGS: No pneumothorax. No pleural effusions. There is mild elevation of the right hemidiaphragm. The lungs are clear. The heart is top normal in size. No acute fractures identified. IMPRESSION: Mild elevation of the right hemidiaphragm which may be chronic. Otherwise, no acute process within the chest. ACT 112: Negative or not required by law. Electronically signed by: Chino Fuentes M.D. 02/03/2023 1:19 PM Head CTA 02/03/23 12:47 HEAD & NECK CTA HISTORY: neuro deficit, acute stroke suspected TECHNIQUE: Multiaxial CT images of the head were performed following the intravenous administration of contrast to evaluate the major cerebral vessels. Multiaxial CT images of the neck were also performed following the intravenous administration of contrast to evaluate the major cervical vessels. Maximum intensity projection images were also obtained. A dose lowering technique was utilized adhering to the principles of ALARA. COMPARISON: Head CT 02/03/2023. FINDINGS: Redemonstration of the right [employer] territory infarct involving the right posterior temporal lobe and right occipital lobe. There is a focal abrupt vascular cut off at the proximal right [employer] on image 100 consistent with a site of occlusion. This corresponds to the right [employer] territory infarct. The visualized intracranial internal carotid arteries, distal vertebral arteries, and basilar artery are widely patent. The left A1 segment is absent. This is likely developmental. There is mild to moderate narrowing at the left MCA bifurcation of up to 50%. Otherwise, the bilateral ACAs, right MCA, and left [employer]ER show no significant stenosis, occlusion, or aneurysm. The aortic arch and proximal great vessels are widely patent. There is no sign ificant stenosis, occlusion, or dissection identified within the bilateral common carotid, internal carotid, or vertebral arteries. IMPRESSION: 1. There is abrupt occlusion within the proximal right [employer] corresponding to the acute right [employer] territory infarct. 2. Mild to moderate narrowing at the left MCA bifurcation of up to 50%. 3. No significant stenosis, occlusion, or dissection identified within the carotid or vertebral arteries. ACT 112: Negative or not required by law. Electronically signed by: Chino Fuentes M.D. 02/03/2023 1:45 PM Neck CTA 02/03/23 12:47 HEAD & NECK CTA HISTORY: neuro deficit, acute stroke suspected TECHNIQUE: Multiaxial CT images of the head were performed following the intravenous administration of contrast to evaluate the major cerebral vessels. Multiaxial CT images of the neck were also performed following the intravenous administration of contrast to evaluate the major cervical vessels. Maximum intensity projection images were also obtained. A dose lowering technique was utilized adhering to the principles of ALARA. COMPARISON: Head CT 02/03/2023. FINDINGS: Redemonstration of the right [employer] territory infarct involving the right posterior temporal lobe and right occipital lobe. There is a focal abrupt vascular cut off at the proximal right [employer]PER[employer]ER on image 100 consistent with a site of occlusion. This corresponds to the right [employer] territory infarct. The visualized intracranial internal carotid arteries, distal vertebral arteries, and basilar artery are widely patent. The left A1 segment is absent. This is likely developmental. There is mild to moderate narrowing at the left MCA bifurcation of up to 50%. Otherwise, the bilateral ACAs, right MCA, and left [employer] show no significant stenosis, occlusion, or aneurysm. The aortic arch and proximal great vessels are widely patent. There is no significant stenosis, occlusion, or dissection identified within the bilateral common carotid, internal carotid, or vertebral arteries. IMPRESSION: 1. There is abrupt occlusion within the proximal right [employer] corresponding to the acute right [employer] territory infarct. 2. Mild to moderate narrowing at the left MCA bifurcation of up to 50%. 3. No significant stenosis, occlusion, or dissection identified within the carotid or vertebral arteries. ACT 112: Negative or not required by law. Electronically signed by: Chino Fuentes M.D. 02/03/2023 1:45 PM Brain MRI 02/04/23 09:06 MRI OF THE BRAIN COMBO CLINICAL HISTORY: Stroke. COMPARISON STUDY: CT of the brain dated 02/03/2023. TECHNIQUE: MRI of the brain was performed utilizing various T1 and T2-weighted sequences in the axial, sagittal, and coronal planes. Contrast-enhanced sequences were acquired following the administration of 13 cc of Gadavist. FINDINGS: Brain parenchyma: There is restricted diffusion throughout the right posterior cerebral artery territory consistent with a large subacute [employer] infarct. No additional foci of restricted diffusion are identified. Serpiginous T1 hyperintensity along the posterior aspect of the infarct could represent laminar necrosis versus trace petechial hemorrhage. There is edema around the infarct, as well as nonspecific patchy enhancement. No enhancing mass lesion is identified on the postcontrast images. There is mild subcortical and periventri cular microangiopathic disease. No extra-axial fluid collection is seen. A 3.4 cm arachnoid cyst is noted in the right anterior temporal fossa. The cerebellar tonsils are normal in configuration. Ventricles, sulci, and cisterns: Normal in configuration. Pituitary and sella: Unremarkable. Intracranial vasculature: Normal flow voids are maintained at the skull base. Orbits: The bony orbits are grossly intact. Orbital contents are normal in appearance. Sinuses and mastoids: There is trace left mastoid effusion. The right mastoid air cells and paranasal sinuses are clear. Calvarium: Unremarkable. Cervical cord: Partially visualized cervical spinal cord is normal in morphology and signal intensity. IMPRESSION: 1. There is a large subacute/evolving right [employer] territory infarct. 2. There is a small amount of serpiginous T1 signal hyperintensity along the infarcted cortex. This likely represents laminar necrosis. A small amount of petechial hemorrhage is not excluded. 3. There is edema around the infarcted territory with nonspecific patchy enhancement. This is likely related to subacute stroke. A follow-up MRI in 4-6 weeks is recommended for reassessment. 4 No additional foci of acute ischemia are identified. No midline shift is seen. 5. Additional findings as above. ACT 112: Negative or not required by law. Electronically signed by: Atilio Moreau M.D. 02/04/2023 5:[address] 02/05/23 05:[address] DOSE: 800.63 mGy.cm HISTORY: Follow-up intracranial hemorrhage. TECHNIQUE: Multiaxial CT images of the head were performed without the use of intravenous contrast. Automated exposure control was utilized for this study. A dose lowering technique was utilized adhering to the principles of ALARA. Comparison: Head CT 02/03/2023. Findings: The paranasal sinuses and mastoid air cells are clear. There is again noted an evolving large right [employer] territory infarct. This is similar to the prior study. Subtle tiny foci of increased density along the posterior aspect of the infarct best seen on image 11 could represent petechial hemorrhage/laminar necrosis described on the prior brain MRI. This remains unchanged. No mass or midline shift identified. No additional acute infarcts. Small arachnoid cyst within the right middle cranial fossa again noted. Impression: No significant change in the evolving large right [employer] territory infarct. Subtle tiny foci of increased density along the posterior aspect of the infarct could represent the petechial hemorrhage/laminar necrosis described on the prior brain MRI. This remains unchanged. ACT 112: Negative or not required by law. Electronically signed by: Chino Fuentes M.D. 02/05/2023 7:18 AM Diabetes Follow up Diabetes Follow-up Needed for HgbA1c >9% Hospital Course (1) Acute ischemic right [employer] stroke: (2) Homonymous hemianopsia due to recent cerebral infarction: (3) Diabetes: (4) Dyslipidemia: (5) HTN (hypertension): (6) Tobacco use disorder: Plan 66yoM with PMHx of DMII with retinopathy, HTN, dyslipidemia not currently on statin, chronic tobacco use, h/o perianal/scrotal abscess admitted with a R [employer] stroke. CT head 02/03 1. Acute to subacute right [employer] territory infarct. 2. No intracranial hemorrhage at this time. CTA head and neck 02/03 1. There is abrupt occlusion within the proximal right [employer]ER corresponding to the acute right [employer] territory infarct. 2. Mild to moderate narrowing at the left MCA bifurcation of up to 50%. 3. No significant stenosis, occlusion, or dissection identified within the carotid or vertebral arteries. MRI brain 02/04 1. There is a large subacute/evolving right [employer] territory infarct. 2. There is a small amount of serpiginous T1 signal hyperintensity along the infarcted cortex. This likely represents laminar necrosis. A small amount of petechial hemorrhage is not excluded. 3. There is edema around the infarcted territory with nonspecific patchy enhancement. This is likely related to subacute stroke. A follow-up MRI in 4-6 weeks is recommended for reassessment. 4 No additional foci of acute ischemia are identified. No midline shift is seen. 5. Additional findings as above. Repeat CT brain 02/05 No significant change in the evolving large right [employer] territory infarct. Subtle tiny foci of increased density along the posterior aspect of the infarct could represent the petechial hemorrhage/laminar necrosis described on the prior brain MRI. This remains unchanged. Subacute right [employer] stroke with left homonymous hemianopia Symptoms ongoing for 2 weeks- out of therapeutic window for any intervention. Saw an cone winder last week and states his vision loss was attributed to his diabetic retinopathy. However, he states the eye disturbance was so bad that he stopped driving as he was concerned that his vision and a blind spot. He presented to the ED 02/03 due to the persistence of his symptoms. Head CT, head and neck CTA, MRI brain as above Echocardiogram and telemetry unremarkable Seen by neuro- Discussed with Dr Duncan today- He recommends plavix monotherapy given the size of his stroke, along with lipitor Seen by PT/OT- cleared for discharge home Needs better control of his HTN and DM. assisted goal SBP <130/80, Goal LDL <70 Needs holter/zio patch as OP for 30 days- PCP to arrange No more driving- Reported to Anup. He will need follow up with his eye doctor for further monitoring of his visual frausto OP follow up with neurology Recommended quitting tobacco abuse- he is motivated. Uncontrolled DMII with retinopathy- A1c 9.7 Resume home metformin and trulicity Seen nutrition educator His A1c does not match his reported BG readings at home( reports good control of BG at home). Recommended checking more frequently, before meals and also pos tprandially and follow up with PCP for further management. HTN- Home meds losartan and amlodipine resumed. F/u PCP for further management- Might need addition of more agents to have BP at goal Chronic Tobacco Use Pt chews tobacco, states 1 can a week for the past 30-40 years recommended quitting given his stroke. He is motivated Total Time Total Time Spent Total Time Spent (In Minutes): 40 Discharge Plan Discharge Items Patient Disposition: Home - Self-Care Reason For Visit: STROKE Discharge Diagnosis: Subacute right [employer] stroke with left homonymous hemianopia Activity: Resume your previous activity Non-emergency contact: Primary Care Provider, Neurologist and [employer] Call non-emergency contact if: you have any medication questions, your symptoms worsen and your pain is concerning for you Follow-up/Referrals: Caleb Clay MD [Physician] - (stroke follow up in 4-[address] Clay's office will call patient with appt. ) Félix Chowdary MD [Primary Care Provider] - 02/12/23 11:00 am (hospital follow up) Diet: Carb Consistent or DM2 and Heart Healthy Addtl Attending Provider Instructions: NO MORE DRIVING until cleared by Ophthalmology. Please see him regularly for visual field testing. We have reported you to Anup. Stop aspirin. Continue plavix and lipitor daily. Goal LDL <70 Recommend quitting tobacco completely as discussed You will need better control of your high blood pressure and diabetes to prevent risk of future stroke. Your goal blood pressure is <130/80. Your reported blood sugar level do not match with your A1c level. Please check your blood sugar before meals to ensure it is at goal (gaol blood sugar before meals <140), if it is at goal, check your blood sugar 2 hours after meals (goal blood sugar <180). Follow up with your family doctor to discuss further. Repeat MRI brain at 4-6 weeks is recommended Follow up with your family doctor at the scheduled appointment- You will need 30 day cardiac monitoring (holter/zio patch)- follow up with family doctor for referral to cardio Follow up with neurology in 4-6 weeks Pending Studies at Discharge: No Stand-Alone Forms: My [facility] [employer], Smoking Cessation, Medications to Prevent Stroke Medications and DC Order Prescriptions: New atorvastatin 40 mg Tablet 40 mg PO QAM Qty: 30 0RF clopidogrel 75 mg Tablet 75 mg PO QAM Qty: 30 0RF oxycodone 5 mg Tablet 5 mg PO BID PRN (Reason: pain) Qty: 10 0RF meclizine 25 mg tablet 25 mg PO TID PRN (Reason: dizziness) Qty: 10 0RF Continued metformin 1,000 mg tablet 1,000 mg PO BID Trulicity 3 mg/0.5 mL pen injector 3 mg SUBCUT WK Rx Instructions: TAKE THIS MED EVERY SUNDAY losartan 100 mg tablet 100 mg PO QAM Qty: 30 0RF amlodipine 5 mg tablet 5 mg PO DAILY Qty: 30 0RF acetaminophen 325 mg Tablet 650 mg PO Q4H PRN (Reason: pain) Qty: 30 0RF loratadine 10 mg Tablet 10 mg PO QAM Discontinued aspirin [Aspir-Low] 81 mg Tablet,Delayed Release (Dr/Ec) 81 mg PO DAILY Discharge Orders: Discharge Order (Routine); Ordered 02/05/23 Ordered By: Michael Carcamo Admission Data Admit Date/Time: 02/03/23 15:58 Attending Provider: Michael Carcamo Admit Provider: Tari Olivier Primary Care Provider: Félix Chowdary Other Providers: Tari Olivier ; Caleb Clay Other Interventions: Discharge Summary Assessment (RN) Last Done: 02/05/23 13:03
--- NOTE | 2023-02-05 22:19 | Electrocardiogram Report ---
Test Reason : Blood Pressure : / mmHG Vent. Rate : 091 BPM Atrial Rate : 091 BPM P-R Int : 186 ms QRS Dur : 160 ms QT Int : 406 ms P-R-T Axes : 042 002 002 degrees QTc Int : 499 ms Normal sinus rhythm Right bundle branch block Septal infarct , age undetermined T wave abnormality, consider inferior ischemia Abnormal ECG When compared with ECG of 03-APR-2022 17:25, No significant change was found Confirmed by Jericho Gauthier ([id number]) on 02/05/2023 10:19:27 PM Referred By: Confirmed By:Jericho Gauthier
== END 2023-02-05 14:29 | disposition home or self-care (01) | DRG 66 ==
LOC: ED 12:14 → 4W 15:58 → SUATTDRO 15:58 → 4W 18:05